=== PATIENT | male | born 1960 | race Caucasian/White ===

== ENCOUNTER 2019-08-28 17:36 | Emergency (ER) | payer SELFPAY ==
[2019-08-28 17:37] VITALS: BP 134/80; PULSE 101; RESP 18; TEMP 37.2; O2SAT 97; BMI 33.0
[2019-08-28 17:54] VITALS: BP 134/80; PULSE 101; RESP 18; TEMP 37.2; O2SAT 96; O2SAT 97
--- NOTE | 2019-08-28 18:12 | ED.VIS.URI ---
History of Present Illness Chief Complaint: Shortness of Breath Informant: Patient Onset: Days - 3 Context: Gradual Onset Timing: Continuous Associated Symptoms: Headache, Myalgias, Shortness of Breath, Productive Cough. Negative for: Nasal Congestion, Nausea, Vomiting, Diarrhea, Chest Pain, Hemoptysis Narrative: Patient presenting with flulike symptoms for 2 or 3 days. He gets dyspnea with exertion, but states even with this illness he has been walking 3-5 miles with little difficulty. He does not have any dyspnea at rest or chest symptoms otherwise. His doctor sent him to the ER for evaluation. He has had no definite exposures to persons infected with coronavirus that he knows of. 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 There is been respiratory illnesses but nobody that he knows of with anything specific. He does not have any history of chronic lung disease or heart disease. He has a history of multiple sclerosis that occasionally gives him weakness and/or numbness, he has none of that right now, and takes no medications for his multiple sclerosis or any other medications for other medical problems. - Past Medical History (1) Multiple sclerosis Status: Chronic Past Medical History - Allergies and Home Meds Allergies/Adverse Reactions: Allergies Penicillins [PCN] Allergy (Verified 08/28/19 17:37) Rash Primary Care Physician: Isiah Velasquez III, MD [Primary Care Provider] - Smoking Status: Never smoker Review of Systems General: Reports: Chills, Fever, Malaise, Subjective. Denies: Sweats Eyes: Denies: Visual changes - bilaterally, Diplopia ENT: Denies: Bilateral ear pain, Rhinorrhea, Sore throat Cardiovascular: Denies: Chest pain, Palpitations Respiratory: Reports: Cough, Sputum - occ phlegm, Dyspnea on exertion. Denies: Dyspnea Gastrointestinal: Denies: Abdominal pain, Nausea, Vomiting, Diarrhea, Melena, Hematochezia Genitourinary: Denies: Dysuria, Hematuria, Frequency Musculoskeletal: Reports: Myalgias. Denies: Neck pain, Back pain, Extremity Pain Skin: Denies: Rash, Wounds Neurological: Reports: Headache. Denies: Weakness, Numbness Physical Exam Vital Signs/Narrative: Vital Signs Temp Pulse Resp BP Pulse Ox 08/28/19 17:54 99 F 101 H 18 134/80 H 97 04/06/20 17:37 99 F 101 H 18 134/80 H 97 Inital Vital Signs reviewed: Yes General: Well nourished, Well developed, - - Appearing, no distress Head: Normocephalic, Atraumatic Eyes: Perrl, EOMI Ears: Normal external canal, TM's clear. Negative for: Pain with Movement of Right Tragus, Pain with Movement of Left Tragus Nose: Normal Inspection, No Rhinorrhea Mouth/Throat: Normal Inspection, No Posterior Erythema, Airway Patent Neck: Supple, Nontender, No Lymphadenopathy, No Meningismus Cardiovascular: Regular rate, Regular rhythm, No murmurs. Negative for: Tachycardia Respiratory: No distress, CTA bilaterally, Chest nontender Abdomen: Soft, Nontender, Nondistended, Normal bowel sounds Back: Nontender, Normal Inspection Extremities: Nontender, No edema. Negative for: Calf Tenderness Skin: Normal color, No rash, No Trauma Neurological: Alert, Oriented x3, Cranial nerves II-XII grossly intact, Normal Strength, Normal Sensation, Normal Gait Psychological: Normal affect, Normal Mood Diagnostic/Tx/Re-eval - Medical Decision Making At this time, the criteria that allow for coronavirus testing at the [facility] include priority 1 and 2, this patient does not meet either of those criteria after I discussed with the [facility] laboratory line to ask for permission for prior to testing. Therefore he was given appropriate discharge instructions for quarantine according to possibility of coronavirus infection after chest x-ray, influenza, and RSV were all negative. He understands and is comfortable with this plan. ED Disposition - Plan for ED Patient: Disposition: Home or Assisted Living Diagnosis: Viral URI with cough Instructions: ED Upper Resp Infec No Abx Tx Referrals: Isiah Velasquez III, MD [Primary Care Provider] - 10-14 Days if not better Additional Instructions: -See additional attached quarantine instructions for what to do with regards to the possibility of coronavirus infection, given that you do not currently meet the [facility] requirements for testing since they require us to conserve the limited testing ability for the sickest, hospitalized patients.
--- NOTE | 2019-08-28 18:27 | RAD_ITS ---
STUDY: X-RAY CHEST REASON FOR EXAM: Male, 59 years old. COUGH WITH SOB AND FEVER. TECHNIQUE: Single AP portable view of the chest. COMPARISON: None. FINDINGS: There are monitoring devices. The lungs are clear and expanded. There is no demonstrated pleural abnormality. Normal size heart. Normal mediastinum and amanda. Normal visualized pulmonary arteries. Normal visualized aortic arch and descending thoracic aorta. Arthritic change of the spine and acromioclavicular joints. There is no demonstrated abnormality of the visualized soft tissue structures of the upper abdomen. RAD/Chest 1 View (Portable) IMPRESSION: Degenerative changes, as described above. No demonstrated acute cardiopulmonary process. Electronically Signed: Samson Naranjo MD at 18:44 EDT , Service support ,
[2019-08-28 19:12] VITALS: BP 133/94; PULSE 75; RESP 18; TEMP 37.2; O2SAT 97
[2019-08-28 20:44] VITALS: BP 132/90; PULSE 73; RESP 16; O2SAT 96
== END 2019-08-28 20:45 | disposition home or self-care (01) ==
PROVIDERS: Emergency Provider Emergency Medicine; PCP Family Medicine
DX: J06.9 Acute upper respiratory infection, unspecified (principal)
CPT/HCPCS: 71045; 87804; 87807; 99282

== ENCOUNTER 2019-09-01 15:30 | Inpatient (IN) | payer SELFPAY ==
[2019-09-01 15:30] VITALS: BP 146/88; PULSE 108; RESP 16; TEMP 37; O2SAT 97; BMI 29.9
--- NOTE | 2019-09-01 15:50 | ED.RN ---
Addendum entered by Yokasta Flores 09/01/19 15:52: error, documented on wrong pt. Original Note: sister has cell phone. at this point jewelry remains on pt.
--- NOTE | 2019-09-01 15:51 | EKG12_ITS ---
Test Reason : PRE-OP Blood Pressure : / mmHG Vent. Rate : 088 BPM Atrial Rate : 088 BPM P-R Int : 146 ms QRS Dur : 086 ms QT Int : 346 ms P-R-T Axes : 041 048 012 degrees QTc Int : 418 ms Normal sinus rhythm Normal ECG Confirmed by RAVI RAMSAY, GARY ([id number]), manuscript editor BROCK TREJO ([id number]) on 09/04/2019 8:38:44 AM Referred By: Kelly Hudson Confirmed By:GARY RODRIGUES MD
--- NOTE | 2019-09-01 15:52 | ED.VIS.GEN ---
History of Present Illness Chief Complaint: Abd Pain Informant: Patient Onset: Yesterday Timing: Waxes and wanes Current Severity: Moderate Maximum Severity: Severe Narrative: Patient presents secondary to right upper quadrant pain and states his PCP told him he needed his gallbladder out. Patient developed right upper quadrant pain at 4 PM last evening. He has had URI symptoms with low-grade fever for the past 3 or 4 days. He has nausea. He was seen at the hospital in [place] last evening. CBC revealed a white count of 11.1 with 78% neutrophils. Chemistry studies are unremarkable including LFTs and lipase. CT scan showed a distended gallbladder. He was kept in the ER overnight and got an ultrasound of his gallbladder this morning that revealed numerous small layering stones and sludge in the gallbladder. Gallbladder wall measures 0.4 cm. There was no pericholecystic fluid. Patient states he left the hospital after his ultrasound this morning and did eat a small amount at 11 AM. He received a phone call from his PCPs office at 1 PM stating that he was supposed to go to the hospital at 4:00 to have his gallbladder out. He then received a return phone call 5 minutes later stating that they did not want him to wait that long he should go to the hospital as soon as possible. - Past Medical History (1) Multiple sclerosis Status: Chronic Past Medical History - Allergies and Home Meds Allergies/Adverse Reactions: Allergies Penicillins [PCN] Allergy (Verified 09/01/19 15:33) Rash Primary Care Physician: Isiah Velasquez III, MD [Primary Care Provider] - Prior records reviewed: Yes Lives: Alone Smoking Status: Never smoker Review of Systems General: Reports: Fever Eyes: Denies: Visual changes - bilaterally ENT: Denies: Bilateral ear pain, Sore throat Cardiovascular: Denies: Chest pain Respiratory: Reports: Cough Gastrointestinal: Reports: Abdominal pain, Nausea Genitourinary: Denies: Dysuria Musculoskeletal: Denies: Swelling, Extremity Pain Skin: Denies: Rash Neurological: Denies: Headache Psych: Denies: Depression Hematologic: Denies: Easy bruising Allergy: Denies: Uticaria Physical Exam Vital Signs/Narrative: Vital Signs Temp Pulse Resp BP Pulse Ox 09/01/19 15:30 98.6 F 108 H 16 146/88 H 97 Inital Vital Signs reviewed: Yes General: Well nourished, Well developed Head: Normocephalic ENT: Moist mucous membranes Neck: Supple Cardiovascular: Regular rate, Regular rhythm Respiratory: No distress, CTA bilaterally Abdomen: Soft, Tender - Diffuse tenderness to palpation, Guarding, Hypoactive bowel sounds Extremities: Nontender Skin: Normal color Neurological: Alert, Oriented x3, Normal Strength, Normal Sensation Psychological: Normal affect Diagnostic/Tx/Re-eval Impressions Gallbladder Ultrasound 09/01/19 16:01 IMPRESSION: 1. Cholelithiasis and acute cholecystitis. 2. Minimally dilated common duct for the patient''s age. Distal stone is not excluded. Electronically Signed: Екатерина Braun MD at 18:00 EDT Tel , Service support , 09/01/19 16:01 US Gallbladder [Gallbladder] [US] Stat 09/01/19 18:25 Chest 1 View (Portable) [RAD] Stat Laboratory Results 09/01/19 09/01/19 16:52 16:52 WBC 12.8 H RBC 4.78 Hgb 14.6 Hct 45.0 MCV 94.1 H MCH 30.5 MCHC 32.4 RDW Std Deviation 48.0 H RDW Coeff of Jason 13.9 Plt Count 171 MPV 12.3 H Immature Gran % (Auto) 0.300 Neut % (Auto) 77.6 H Lymph % (Auto) 8.0 L [place] % (Auto) 13.3 H Eos % (Auto) 0.3 Baso % (Auto) 0.5 Absolute Neuts (auto) 9.9 H Absolute Lymphs (auto) 1.02 Nucleated RBC % 0 Differential Comment COMMENT Diff Path Review May foll Reactive Lymphocytes RARE Platelet Estimate ADEQUATE RBC Morphology NORM C+C Sodium 139 Potassium 3.9 Chloride 108 H Carbon Dioxide 25.0 Anion Gap 6 BUN 15 Creatinine 0.98 Estim Creat Clear Calc 69.73 Est GFR (MDRD) Af Amer 100 Est GFR (MDRD) Non-Af 83 BUN/Creatinine Ratio 15.3 Glucose 122 H Calcium 8.4 L Total Bilirubin 1.50 H AST 293 H ALT 320 H Alkaline Phosphatase 102 Total Protein 7.2 Albumin 3.3 Globulin 3.9 Albumin/Globulin Ratio 0.8 L Lipase 137 - EKG Initial EKG Interpretation: Sinus Rhythm - Sinus at 88 with no acute ischemia. - Medical Decision Making Patient was given Dilaudid, Zofran, and a dose of Cipro as he does have penicillin allergy. I did review his work-up from [facility]. Ultrasound performed there this morning did not show any pericholecystic fluid. Gallbladder wall appeared unremarkable. I spoke with Dr. Hudson shortly after I saw the patient. She voiced concern about taking the patient to the operating room who may had Covid. She had told the patient that he should go to [facility]. The patient is now here and I do not feel that other hospitals will accept the transfer simply based on the fact that he may have Covid. Work-up was repeated tonight and patient now has elevated LFTs with evidence of cholecystitis on ultrasound. I spoke with incident command and him instructed that surgery has a plan in place to take potential Covid patients to the operating room if needed. I spoke again with Dr. Hudson and she presented to the emergency room to see the patient. ED Disposition - Plan for ED Patient: Disposition: Acute Care Hospital [facility] Diagnosis: Cholecystitis Referrals: Isiah Velasquez III, MD [Primary Care Provider] -
--- NOTE | 2019-09-01 16:01 | US_ITS ---
STUDY: ABDOMINAL ULTRASOUND - RIGHT UPPER QUADRANT REASON FOR VISIT: Male, 59 years old RUQ PAIN TECHNIQUE: Ultrasound evaluation of the right upper quadrant was performed with real-time and static matthews-scale imaging. TECHNICAL QUALITY: Adequate. COMPARISON: None. FINDINGS: Liver: The liver is poorly visualized. Liver measures 14.7 cm. There is normal echogenicity of the liver. The bile ducts are within normal limits. There is hepatic color flow. The direction of portal flow is hepatopetal. There is no demonstrated mass lesion. Gallbladder: Normal distended gallbladder. The gallbladder wall measures 3 mm. There is a positive sonographic Mora''s sign. There is no pericholecystic fluid. Gallbladder sludge and multiple small shadowing stones. Common Bile Duct (C.B.D.): The common bile duct measures 7 mm. Pancreas: Normal size of the head, body and tail of the pancreas. There is normal echogenicity of the pancreas. There is no demonstrated pancreatic mass or cyst. Right Kidney: Normal size of the right kidney. The right kidney measures 9.7 x 5.2 cm. Normal renal cortex. The right cortex measures 1.4 cm. There is no demonstrated renal mass or cyst. There is no right hydronephrosis. US/Gallbladder IMPRESSION: 1. Cholelithiasis and acute cholecystitis. 2. Minimally dilated common duct for the patient''s age. Distal stone is not excluded. Electronically Signed: Екатерина Braun MD at 18:00 EDT Tel , Service support ,
[2019-09-01] MEDS: 0.9% Normal Saline 1,000 ML 150 ML IV ×2 (16:34→21:54)
[2019-09-01] MEDS: Ciprofloxacin 400 MG/200 ML BAG 200 MG IV ×2 (16:47→21:57)
[2019-09-01] MEDS: HYDROmorphone 1 MG/ML Syringe 0.5 MG IV (16:47)
[2019-09-01] MEDS: Ondansetron 4 MG/2 ML Vial IV (16:47)
[2019-09-01 17:07] LABS: Absolute Lymphocyte Count 1.02 X10^3/uL (0.83-4.51); Absolute Neutrophil Count 9.9 X10^3/uL (2.0-7.7); Basophil# 0.07 X10^3/uL; Basophil% 0.5 % (0-1); Eosinophil# 0.04 X10^3/uL; Eosinophils% 0.3 % (0-5); Hemoglobin 14.6 g/dL (13.0-16.5); Lymphocyte # 1.02 X10^3/ul (4.0); Mean Corp Hgb Conc 32.4 g/dL (32-36); Mean Corpuscular Hgb 30.5 pg (27.0-32.0); Mean Corpuscular Volume 94.1 fL (80-94); Mean Platelet Vol. 12.3 fl (6.2-12.0); Monocyte# 1.69 X10^3/uL; Monocyte% 13.3 % (0-10); NRBC Flagged by Analyzer 0 % (0-5); Neutrophil # 9.89 X10^3/uL (2.7-7.7); Neutrophil % 77.6 % (47-70); POSITIVE DIFFERENTIAL YES; Platelet Count 171 K/mm3 (150-450); RBC Distribution Width CV 13.9 % (11.6-14.6); Red Blood Count 4.78 M/mm3 (4.6-6.2); White Blood Count 12.8 K/mm3 (4.4-11.0)
[2019-09-01 17:09] LABS: Differential Indicated SCAN CRITERIA MET
[2019-09-01 17:42] LABS: ALB/GLOB Ratio 0.8 RATIO (0.9-2.4); AST(SGOT) 293 U/L (15-37); Alanine Aminotransfer ALT/SGPT 320 U/L (16-61); Albumin, Serum 3.3 g/dL (3.2-5.0); Alkaline Phosphatase 102 U/L (45-117); Anion Gap 6 (5-15); BUN 15 mg/dL (7-18); BUN/Creat Ratio 15.3 RATIO (10-20); Calcium,Total 8.4 mg/dL (8.5-10.1); Chloride 108 mmol/L (98-107); Creatinine, Serum 0.98 mg/dL (0.70-1.30); EST Glomerular Filtration Rate 83 mL/min (>60); Est Glom Filt Rate - Afr Amer 100 mL/min (>60); Estimated Creatinine Clearance 69.73 ml/min; Globulin 3.9 g/dL (2.2-4.2); Glucose 122 mg/dL (74-106); Lipase 137 U/L (73-393); Potassium 3.9 mmol/L (3.5-5.1); Protein, Total 7.2 g/dL (6.4-8.2); Sodium Level 139 mmol/L (136-145)
[2019-09-01 17:46] VITALS: PULSE 85; RESP 12; O2SAT 96
[2019-09-01 17:52] LABS: Platelet Estimate ADEQUATE (ADEQ); Reactive Lymphocyte RARE; Red Cell Morphology NORM C+C NORMAL (NORM C&C)
[2019-09-01 18:28] VITALS: BP 145/78; PULSE 88; RESP 14; TEMP 36.2; O2SAT 97; BMI 29.9
--- NOTE | 2019-09-01 19:20 | RAD_ITS ---
STUDY: X-RAY CHEST REASON FOR EXAM: Male, 59 years old. PRE-OP GALLBLADDER SURGERY, COLD SYMPTOMS TECHNIQUE: Single AP portable view of the chest. COMPARISON: 08/28/2019. FINDINGS: The lungs are clear and expanded. There is no demonstrated pleural abnormality. Normal size heart. Normal mediastinum and amanda. Normal visualized pulmonary arteries. Normal visualized aortic arch and descending thoracic aorta. Normal visualized thoracic spine. Normal visualized ribs, clavicles, and shoulders. There is no demonstrated abnormality of the visualized soft tissue structures of the upper abdomen. RAD/Chest 1 View (Portable) IMPRESSION: Normal x-ray examination of the chest. Electronically Signed: Екатерина Braun MD at 19:41 EDT Tel , Service support ,
--- NOTE | 2019-09-01 19:22 | PCM.HP.BLA ---
History and Physical Date of Admission: 09/01/19 Chief Complaint: abdominal pain History of Present Illness: 59 y/o WM presents with abdominal pain since yesterday. Had presented to ED at [place] yesterday and was discharged. Presented to [facility] ED today Was found to have elevated 12.8k with left shift of differential. Patient states that has noted low grade temperatures and chills. Had also presented to [facility] ED on 08/28/2019 with temp of 99F and was tested negative for influenza/RSV/CXR was normal (patient thinks that he was tested for COVID, but he did not meet criteria and was not tested) US gallbladder today - cholelithiasis and acute cholecystitis, minimally dilated common bile duct 7mm, gallbladder wall 3mm, no pericholecystic fluid noted Pain is severe and patient states that pain is 9 out of 10 on scale of 1-10. PAST MEDICAL HISTORY: multiple sclerosis PAST SURGICAL HISTORY: Tonsillectomy ventral hernia left thumb surgery MEDICATIONS: denies taking chronic medications ALLERGIES: penicillin copolymer 1 SOCIAL HISTORY: TOB use denies, uses snuff Occupation - [employer] REVIEW OF SYSTEMS: General - states that he had low grade fevers, feels chills Cardiovascular denies chest pain, denies history of heart attack Pulmonary had coughing and low grade fever and showed up to ED [facility] on Wednesday and had COVID testing, denies shortness of breath, denies coughing up blood Gastrointestinal as per HPI, history of peptic ulcer disease Neurological denies numbness/weakness of extremities, denies seizures, denies history of stroke Genitourinary denies burning with urination, denies blood in urine Hematological denies spontaneous/prolonged bleeding Skin denies open non healing wounds Musculoskeletal denies joint problems Endocrine denies diabetes Psychological denies hallucinations PHYSICAL EXAMINATION: Vital signs Temp 97.1F HR 108 BP 146/88 RR 16 General WD/WN WM in no apparent distress, alert and oriented, not septic appearing HEENT Normocephalic. EOM intact with sclera clear and no icterus noted. Neck is supple with no jugular venous distention noted. Trachea is midline. Lungs no labored breathing noted, such as retractions. No cough heard. Heart regular rate. Abdomen soft but tender in the right upper quadrant with Mora's sign, protuberant, difficult to determine if any masses due to body habitus. Extremities no calf tenderness noted. No pitting edema noted. Genitourinary/Rectal deferred Skin normal skin integrity. Neurological non focal. Psychological normal affect, patient is calm and appropriate Labs - t bili 1.5, AST 293, ALT 320 IMPRESSION: acute cholecystitis elevated LFTS but normal alk phos DISCUSSION/PLAN I have discussed the above with the patient. Will admit for acute cholecystitis - treat with IV hydration, IV antibiotics, pain medications, etc. If no improvement, may require laparoscopic cholecystectomy, possible cholangiograms. I have explained the procedure to the patient. I have counseled the patient as to the risks of the procedure, including but not limited to: infection, bleeding, injury to any blood vessels/nerves, scar tissue, injury to any intraabdominal organs, injury to kidney/ureters, injury to bowel/bladder, injury to the common bile duct/biliary tree, bile leakage, intraabdominal abscess/bleeding, hernias at incisional sites, wound infections, possible open procedure, complications of anesthesia, postoperative pneumonia/cardiac problems/blood clots etc. the patient understands. The patient agrees with the above plan and agrees to the procedure. I have answered all questions to the patient?s satisfaction and the patient has no further questions.
[2019-09-01 19:57] VITALS: BP 141/77; PULSE 92; RESP 18; TEMP 36.4; O2SAT 97
[2019-09-01 21:49] VITALS: BP 136/65; PULSE 82; RESP 20; TEMP 37.4; O2SAT 97
[2019-09-01] MEDS: Morphine 4 MG/ML Syringe IV (21:51)
[2019-09-01 21:59] VITALS: BMI 29.9
[2019-09-02] VITALS (9 sets, daily range): BP systolic 107–157; BP diastolic 62–84; PULSE 71–87; RESP 16–20; TEMP 36.9–37.6; O2SAT 93–97; BMI 29.9
[2019-09-02] MEDS: Morphine 4 MG/ML Syringe IV ×3 (02:22→07:55)
[2019-09-02] MEDS: 0.9% Normal Saline 1,000 ML 150 ML IV (05:31)
[2019-09-02] MEDS: 0.9% Saline Lock 10 ML Syringe IV (07:56)
--- NOTE | 2019-09-02 10:14 | PN.SURG_ITS ---
Patient Problems: Active and Suspected Problems Cholecystitis (Acute) Subjective: patient's pain has not improved - Physical Exam Vitals/I&O's: Vital Signs Temp Pulse Resp BP Pulse Ox 99.6 F H 83 18 107/64 93 09/02/19 08:00 09/02/19 08:00 09/02/19 08:00 09/02/19 08:00 09/02/19 08:00 Oxygen Delivery Method Room Air Weight: 81.647 kg Body Mass Index (BMI) 29.9 Intake and Output for Last 24 Hours 08/31/19 09/01/19 09/02/19 23:59 23:59 23:59 Intake Total 1202.5 / 1202.5 977.5 / 977.5 Output Total 400 / 400 Balance 1202.5 / 1002.5 577.5 / 577.5 General: Alert, Oriented x3 Oral: Moist Mucosa Neck: Supple Lungs: Normal air movement Abdomen: Tender Laboratory Results 09/01/19 16:52: WBC 12.8 H, RBC 4.78, Hgb 14.6, Hct 45.0, MCV 94.1 H, MCH 30.5, MCHC 32.4, RDW Std Deviation 48.0 H, RDW Coeff of Jason 13.9, Plt Count 171, MPV 12.3 H, Immature Gran % (Auto) 0.300, Neut % (Auto) 77.6 H, Lymph % (Auto) 8.0 L , [place] % (Auto) 13.3 H, Eos % (Auto) 0.3, Baso % (Auto) 0.5, Absolute Neuts (auto) 9.9 H, Absolute Lymphs (auto) 1.02, Nucleated RBC % 0, Differential Comment COMMENT, Diff Path Review May foll, Reactive Lymphocytes RARE, Platelet Estimate ADEQUATE, RBC Morphology NORM C+C 09/01/19 16:52: Sodium 139, Potassium 3.9, Chloride 108 H, Carbon Dioxide 25.0, Anion Gap 6, BUN 15, Creatinine 0.98, Estim Creat Clear Calc 69.73, Est GFR (MDRD) Af Amer 100, Est GFR (MDRD) Non-Af 83, BUN/Creatinine Ratio 15.3, Glucose 122 H, Calcium 8.4 L, Total Bilirubin 1.50 H, AST 293 H, ALT 320 H, Alkaline Phosphatase 102, Total Protein 7.2, Albumin 3.3, Globulin 3.9, Albumin/Globulin Ratio 0.8 L, Lipase 137 Current Medications Sodium Chloride () 1,000 mls @ 150 mls/hr IV .[id number] [facility] Last Admin: 09/02/19 05:31 Dose: 150 mls/hr Documented by: Ciprofloxacin (Cipro) 400 mg in 200 mls @ 200 mls/hr IV Q12 [facility] Last Infusion: 09/01/19 23:00 Dose: Infused Documented by: Sodium Chloride () 250 mls @ 15 mls/hr IV .[id number] PRN PRN Reason: Saline Flush Sodium Chloride () 250 mls @ 15 mls/hr IV .[id number] PRN PRN Reason: Additional IVPB Infusion Morphine Sulfate () 4 mg IV Q1H PRN PRN PRN Reason: Pain Score 4-10 Last Admin: 09/02/19 07:55 Dose: 4 mg Documented by: Nutritional Formula (Lactose Free) (Ensure Enlive) 120 ml PO 4X/DAY [facility] Last Admin: 09/02/19 07:48 Dose: Not Given Documented by: Ondansetron HCl (Zofran) 4 mg IV Q8 PRN PRN Reason: NAUSEA/VOMITING Sodium Chloride () 10 - 40 ml IV UD PRN PRN Reason: SALINE FLUSH Last Admin: 09/02/19 07:56 Dose: 10 ml Documented by: Medical Necessity - Tobacco Use Smoking Status: Never smoker Assessment/Plan All Active Problems Cholecystitis (Acute) Impression: acute cholecystitis Plan: proceed to laparoscopic cholecystectomy today I have counseled patient as to risks of procedure: including but not limited to: infection, bleeding, injury to any blood vessels/nerves, scar tissue, injury to any intrabdominal organs, injury to kidney/ureters, injury to bowel/bladder, injury to the common bile duct/biliary tree, bile leakage, intraabdominal abscess/bleeding, hernias at incisional sites, wound infections, possible open procedure, complications of anesthesia, postoperative pneumonia/cardiac problems/blood clots etc. the patient understands. I have also explained that any surgery at this point in time would stress the body and therefore increase his susceptibility to infections such as COVID, he understands. He wishes to proceed with surgery. I have answered all questions to the patient?s satisfaction and the patient has no further questions.
[2019-09-02] MEDS: HYDROmorphone 0.5 MG/0.5 ML SYRINGE IV (10:48)
[2019-09-02] MEDS: Ciprofloxacin 400 MG/200 ML BAG 200 MG IV ×2 (11:06→21:58)
--- NOTE | 2019-09-02 11:10 | NURSING ---
Off unit to OR at this time.
[2019-09-02] MEDS: Lactated Ringers 1,000 ML 100 ML IV ×2 (12:30→21:59)
--- NOTE | 2019-09-02 13:11 | OP.PCM_ITS ---
Report of Operation Date of Procedure: 09/02/19 Pre-Operative Diagnosis: cholelithiasis, acute cholecystitis Post-Operative Diagnosis: cholelithiasis, acute cholecystitis with obstruction with gangrene Surgery/Procedure Performed:: laparoscopic cholecystectomy, attempted cholangiograms Description of Surgical Findings:: gangrenous gallbladder wall, cholelithiasis with obstruction, cholecystitis, could not do cholangiograms due to small lumenal size of cystic duct point of care technician: Luisa Bertrand Type of Anesthesia:: General Anesthesiologist: Delvin Madera Specimen's removed: gallbladder and contents Drains: 10 Fr round passive drain in right upper quadrant Estimated Blood Loss (mL): 30 Fluids Replaced: 1300 ml RL Description of Procedure: After informed consent was given, the patient was brought to the Operating Room. Appropriate time out protocol was followed. He was then placed in the supine position. The patient was then placed under general endotracheal anesthesia. The abdomen was then prepped with a sterile surgical skin preparation and sterile surgical drapes were placed. An area superior to the umbilical dimple was grasped with penetrating clamps and the skin and subcutaneous tissues were infiltrated with 0.25% marcaine with epinephrine. A skin incision was then made with a 15 blade scalpel. The anterior abdominal wall was elevated and a Veress needle was carefully inserted into the intraabdominal cavity. It was checked to be in the proper position with a normal saline drop test. A CO2 pneumoperitoneum was then created. Once this was achieved, then the Veress needle was removed and an 11mm trocar was placed in its stead. A 10mm laparoscope was then inserted into the trocar and careful attention was directed to the intraabdominal contents. There was no evidence of injury to any intraabdominal organs from insertion of the Veress needle or the trocar. A 5 mm trocar was placed via direct visualization in the subxiphoid area after theh skin and subcutaneous tissues were infiltrated with local anesthetic. There were omental adhesions to the anterior abdominal wall from patient's previous ventral hernia surgery for which he states that mesh was placed. These adhesions were taken down using electrocautery. These adhesions were primarily attached to the abdominal wall in the right upper quadrant, obscuring the liver and gallbladder. Once these adhesions were taken down then under direct vis ualization, then two lateral 5mm right subcostal trocars were placed. The skin and subcutaneous tissues at these sites were infiltrated with 0.25% marcaine with epinephrine prior to placement of these trocars. The omentum was densely adhesed to the free surface of the gallbladder. There was dense inflammation surrounding the gallbladder. The gallbladder wall itself was thickened and edematous and had areas of gangrene. The gallbladder was grossly distended. A needle trocar was placed into the gallbladder to aspirate contents to allow it to be grasped and retracted with graspers. Thus, the gallbladder appeared to have obstruction. Graspers were placed in the lateral trocars to grasp the distal aspect of the gallbladder and direct it cephalad and to grasp the gallbladder at Millan?s pouch and direct it laterally. Dissection then began on the proximal gallbladder continuing down to the area of the triangle of Calot to bluntly dissect out the cystic duct. This took some time due to the denseness of the surrounding inflammatory tissues. The neck of the gallbladder was identified and bluntly dissected such that the critical triangle was entirely visualized. Blunt dissection continued to dissect out a segment of the cystic duct. A clip was then placed on the neck of the gallbladder. A small ductotomy was then made. A Ranfac catheter was brought in through a separate sk in incision and placed into the cystic duct, however, contrast could not be injected. The cystic duct was then milked and there were small stones present that were removed. Another ductotomy was then made more proximally, but the lumen was too small, 1-2 mm to cannulate. Therefore the cholangiogram was aborted. The Ranfac catheter was then removed. Two clips were placed proximal to the ductotomy and the cystic duct was then transected. The cystic artery was visualized and bluntly isolated and then two clips were placed proximally and one clip distally and then it was transected between the proximal and distal clips. The gallbladder was then from the liver bed using electrocautery. Separation took some time. There was inflammatory oozing present that was controlled with electrocautery. The gallbladder wall was inflamed and densely adherent to the liver bed. The gallbladder once completely was then placed in an Endobag. It was then brought out of the periu mbilical port. It was then forwarded to pathology for analysis. The liver bed was carefully examined. There was no evidence of bile leakage or active bleeding. Because of inflammatory oozing, surgicel was placed around the area of the cystic duct stump and liver bed. The cystic duct stump and cystic artery stump had their clips intact and there was no evidence of bile leakage or bleeding. The remainder of the abdomen was grossly normal. Irrigation was done of the tissues and all irrigant was aspirated out. A 10 Fr round passive drain was brought in via one of the lateral trocars and placed in the area inferior to the liver. The CO2 was released and all trocars removed intact. The periumbilical fascia was approximated with a [id number] 0 vicryl suture. The drain was sutured to the skin using nylon suture. All skin incision were closed with 4-0 monocryl in a subdermal fashion. Cavilol and Steristrips were used to reinforce the skin closure. Sterile dressings were applied to all wounds. The patient was extubated and brought to the Recovery Room in stable condition. - Complications none noted - Admit VTE Documentation VTE Present on Admission: Yes VTE Mechan Device Prophylaxis: SCD's
[2019-09-02] MEDS: Bupiv/Epi 0.25% 30 ML Vial (13:12)
--- NOTE | 2019-09-02 14:12 | CM.UR ---
RN CM Assessment Introduced role of RN CM to patient. Patient is alert and able to participate in RN CM Assessment. Patient showed many non-verbal signs of pain. Offered to come back after surgery however patient declined and stated, let's do it now. Care providers, pharmacy, and demographics verified. Presentation: abd pain x 1 day Admit Dx: Acute farida Re-Admit: no Barriers/Issues: None PCP: Zonia Velasquez Preferred Pharmacy: [facility] Insurance: None Rx Benefit: none LNOK: Daughter, Alyce LW/HPOA: None, declined additional information. Instructed he can always call social work dept after discharge if interested Living Arrangements: Apartment, single story. Denies any access issues ADL?s: Independent. Transportation: Drives self DME: None. Denies needs. DME co: none HHC: None SNF: None Goal: Return home. DC PLAN: Home, no needs anticipated. Jj Hodgson RN, CCM.
[2019-09-02] MEDS: HYDROcodone Bitartrate/Apap 5/325 Tablet PO (18:38)
[2019-09-03] MEDS: HYDROcodone Bitartrate/Apap 5/325 Tablet PO ×2 (00:08→12:33)
[2019-09-03 02:00] VITALS: BP 141/70; PULSE 76; RESP 16; TEMP 36.8; O2SAT 94
[2019-09-03 07:13] LABS: AST(SGOT) 138 U/L (15-37); Alanine Aminotransfer ALT/SGPT 239 U/L (16-61); Albumin, Serum 2.5 g/dL (3.2-5.0); Alkaline Phosphatase 113 U/L (45-117); Bilirubin, Direct 0.55 mg/dL (0.00-0.30); Globulin 4.1 g/dL (2.2-4.2); Protein, Total 6.6 g/dL (6.4-8.2)
[2019-09-03] MEDS: Lactated Ringers 1,000 ML 100 ML IV (07:30)
[2019-09-03 09:00] VITALS: BP 141/78; PULSE 78; RESP 16; TEMP 36.9; O2SAT 94
[2019-09-03] MEDS: Ciprofloxacin 400 MG/200 ML BAG 200 MG IV (09:01)
[2019-09-03] MEDS: Acetaminophen 500 MG Tablet PO (09:12)
--- NOTE | 2019-09-03 10:58 | PN.SURG_ITS ---
Patient Problems: Active and Suspected Problems Cholecystitis (Acute) Subjective: Patient feeling much improved, requiring minimal pain medications - Physical Exam Vitals/I&O's: Vital Signs Temp Pulse Resp BP Pulse Ox 98.4 F 78 16 141/78 H 94 09/03/19 09:00 09/03/19 09:00 09/03/19 09:00 09/03/19 09:00 09/03/19 09:00 Oxygen Flow Rate (L/min) 2 Oxygen Delivery Method Room Air Weight: 81.6 kg Body Mass Index (BMI) 29.9 Intake and Output for Last 24 Hours 09/01/19 09/02/19 09/03/19 23:59 23:59 23:59 Intake Total 1202.5 / 1202.5 3530.83 / 3530.83 1205.00 / 1205.00 Output Total 1660 / 1660 1585 / 1585 Balance 1202.5 / 1002.5 1870.83 / 1870.83 -380.00 / -380.00 General: Alert, Oriented x3 Oral: Moist Mucosa Neck: Supple Lungs: Normal air movement Abdomen: Soft, - - dressing intact, RICHIE output becoming more serous Laboratory Results 09/03/19 06:27: Total Bilirubin 1.30 H, Direct Bilirubin 0.55 H, AST 138 H, ALT 239 H, Alkaline Phosphatase 113, Total Protein 6.6, Albumin 2.5 L, Globulin 4.1 Current Medications Acetaminophen (Tylenol) 500 mg PO Q4H PRN PRN PRN Reason: Pain Score 1-10 Last Admin: 09/03/19 09:12 Dose: 500 mg Documented by: Hydrocodone Bitart/Acetaminophen ([place] 5mg-325mg) 1 tablet PO Q4H PRN PRN PRN Reason: Pain Score 1-5/10 Last Admin: 09/03/19 00:08 Dose: 1 tablet Documented by: Ciprofloxacin (Cipro) 400 mg in 200 mls @ 200 mls/hr IV Q12 MARIO Last Infusion: 09/03/19 10:01 Dose: Infused Documented by: Sodium Chloride () 250 mls @ 15 mls/hr IV .[id number] PRN PRN Reason: Saline Flush Sodium Chloride () 250 mls @ 15 mls/hr IV .[id number] PRN PRN Reason: Additional IVPB Infusion Lactated Ringer's () 1,000 mls @ 100 mls/hr IV .Q10H MARIO Last Infusion: 09/03/19 10:01 Dose: 100 mls/hr Documented by: Morphine Sulfate () 4 mg IV Q1H PRN PRN PRN Reason: Pain Score 4-1010 Last Admin: 09/02/19 07:55 Dose: 4 mg Documented by: Ondansetron HCl (Zofran) 4 mg IV Q8 PRN PRN Reason: NAUSEA/VOMITING Sodium Chloride () 10 - 40 ml IV UD PRN PRN Reason: SALINE FLUSH Last Admin: 09/02/19 07:56 Dose: 10 ml Documented by: Medical Necessity - Tobacco Use Smoking Status: Never smoker Assessment/Plan All Active Problems Cholecystitis (Acute) Impression: POD#1 s/p laparoscopic cholecystectomy for acute cholecystitis Plan: Discharge to home Follow up next week in the office for removal of RICHIE drain I have answered all questions to the patient?s satisfaction and the patient has no further questions.
--- NOTE | 2019-09-03 11:00 | PCM.DC.GB ---
Discharge Diet: No Restrictions - avoid carbonated beverages for a couple of days Discharge Activity: Return to Normal Activity, May not drive while taking narcotic pain medications. Additional Activity Instructions:: Leave dressings in place. Care for RICHIE drain as per nursuing intructions. Sponge bathe only as long as drain in Call your doctor if your incision/area has: Continuous Slow Oozing, Foul Smelling Discharge Call your doctor if you observe: Fever of 101 or Higher Additional Dressing/Incision Instructions:: Leave dressings in place Additional Instructions: Recommended pain medication regimen: take 650 mg acetaminophen (Tylenol), then in 3-4 hours take 600 mg ibuprofen (Motrin), then in 3-4 hours take 650 mg acetaminophen, then in 3-4 hours take 600 mg ibuprofen and continue this for the nest 2-3 days if has pain greater than controlled by above, can take narcotic pain medication (and also at night to help you sleep) Allergies/Adverse Reactions: Allergies Penicillins [PCN] Allergy (Verified 09/01/19 15:33) Rash Medications to take at Discharge Ciprofloxacin [Cipro] 500 mg PO BID 7 Days #14 tab 09/03/19 Hydrocodone/Acetaminophen [[place] 5-325 Tablet] 1 each PO Q8 PRN 4 Days #12 tablet 09/03/19 The following prescriptions were given: Ciprofloxacin [Cipro] 500 mg PO BID 7 Days #14 tab Transmission Status: Pending to [facility] Hydrocodone/Acetaminophen [[place] 5-325 Tablet] 1 each PO Q8 PRN 4 Days #12 tablet PRN Reason: Pain Score 4-10/10 Transmission Status: Sent to [facility] Primary Care Physician: Isiah Velasquez III, MD [Primary Care Provider] - Test Results: Test results from this visit will be discussed in further detail at your follow-up appointment, if applicable. Please Follow Up With: Kelly Hudson MD - Office #: When: office will contact patient with appointment
--- NOTE | 2019-09-04 | GALL_PTH ---
PATIENT: MELYSSA GALE LOC: PCU U#:[id number] AGE/SX: 59/M ROOM: [facility] RE09/01/[address]: Dr. Kelly Hudson MD : 1960 BED: 1 DIS: 09/03/2019 SPEC #: [id number] RECD: 09/04/19 12:02 STATUS: KORTNEY REQ #: [id number] JOSE: 09/04/19 00:[address]: Kelly Hudson DEPT: SURGICAL PATHOLOGY RECD BY: Kendell Posadas ENTERED: 09/05/19 12:21 SP TYPE: OMKAR VALVERDE DR: Dr. Isiah Velasquez III, MD Tissues: Gallbladder, NOS Procedures: Surgery Specimen Level III HEADER OPERATION: Laparoscopic cholecystectomy with IOC PRE-OP DIAGNOSIS: Acute cholecystitis TISSUE SUBMITTED: Gallbladder MICROSCOPIC DIAGNOSIS Gallbladder, cholecystectomy: Acute and chronic cholecystitis and cholelithiasis. AM:jaun 09/06/19 MICROSCOPIC DESCRIPTION Slides are reviewed. GROSS DESCRIPTION Received is one container labeled with the patient's name and designated gallbladder. The specimen consists of a gallbladder measuring 7.5 cm in length and up to 4 cm in diameter. The wall of the gallbladder is focally disrupted. The external surface is pink-claros, smooth and glistening for the most part. Focally it is granular, hemorrhagic and contains cautery artifact. The gallbladder contains a small amount of hemorrhagic bile and multiple brownish-black stones measuring in aggregate 4 x 4 x 1 cm and 0.1 to 0.3 cm in greatest dimension. The mucosa is bile-stained and without any mass lesions. The gallbladder wall measures up to 0.2 cm in thickness. Training Intern sections from the gallbladder and the cystic duct are submitted in one cassette. / SJ:jaun 09/05/19 TC:2 CPT: 35184
[2019-09-04 11:05] LABS: Pathologist Review Reviewed
--- NOTE | 2019-09-05 11:00 | DS.PCM_ITS ---
Discharge Summary Date of Admission: 09/01/19 Date of Discharge: 09/03/19 Summary: Michael Holloway is a 59 y/o WM who presented with severe right upper quadrant abdominal pain to [facility] ED. He was observed overnight on the medsurg gray with IV hydration, IV antibiotics, and IV pain medications. He was found to have elevated WBC and elevated LFTs (though alk phos was normal) He did not clinically improve and therefore underwent laparoscopic cholecystectomy on 09/02/2019. He was found to have severe acute cholecystitis. IOC could not be done due to the small lumen size of the cystic duct. Intraabdominal drain was placed. He tolerated procedure well and had minimal pain postoperatively. He was discharged to home on POD#1, tolerated diet, LFTs decreased. To be followed as outpatient for removal of drain. - Physical Exam Vitals/I&O's: Vital Signs Temp Pulse Resp BP Pulse Ox 98.4 F 78 16 141/78 H 94 09/03/19 09:00 09/03/19 09:00 09/03/19 09:00 09/03/19 09:00 09/03/19 09:00 Oxygen Flow Rate (L/min) 2 Oxygen Delivery Method Room Air Weight: 81.6 kg Body Mass Index (BMI) 29.9 Intake and Output for Last 24 Hours 09/03/19 09/04/19 09/05/19 23:59 23:59 23:59 Intake Total 1503.33 / 1503.33 Output Total 1595 / 1595 Balance -91.67 / -91.67 Laboratory Results 09/01/19 16:52: Diff Path Review Reviewed
== END 2019-09-03 13:25 | disposition home or self-care (01) | DRG 419 ==
LOC: ED 19:21 → MS2 19:30 → PCU 23:39
PROVIDERS: Admitting Provider Surgery; Emergency Provider Emergency Medicine; PCP Family Medicine; Referring Provider Surgery; Visit Provider Surgery
PROC: 0FT44ZZ Resection of Gallbladder, Percutaneous Endoscopic Approach (ICD-10-PCS; CPT 47610; principal; 2019-09-02 11:15)
DX: K80.12 Calculus of gallbladder with acute and chronic cholecystitis without obstruction (principal); G35 Multiple sclerosis; F17.290 Nicotine dependence, other tobacco product, uncomplicated; K82.A1 Gangrene of gallbladder in cholecystitis
CPT/HCPCS: 36415; 71045; 76705; 80053; 80076; 83690; 85025; 88304; 93005; 96361; 96365; 96368; 96375; 97802; 99251; 99284; 99406; J7030; J7120; A4216; G0463; J0744; J2405

== ENCOUNTER 2022-07-22 07:09 | Emergency (ER) | payer OTHER, SELFPAY ==
[2022-07-22 07:10] VITALS: BP 175/90; PULSE 76; RESP 18; TEMP 36.3; O2SAT 98; BMI 36.6
--- NOTE | 2022-07-22 07:18 | EKG12_ITS ---
Test Reason : CP Blood Pressure : / mmHG Vent. Rate : 068 BPM Atrial Rate : 068 BPM P-R Int : 152 ms QRS Dur : 090 ms QT Int : 390 ms P-R-T Axes : 030 034 011 degrees QTc Int : 414 ms Normal sinus rhythm Normal ECG Confirmed by ABBIE RAMSAY, ABHAY ([id number]), film and video editor KARL CUELLAR ([id number]) on 07/27/2022 9:31:19 AM Referred By: CHARLES Confirmed By:DANIAL LEIVA MD
[2022-07-22 07:22] VITALS: O2SAT 97
--- NOTE | 2022-07-22 07:35 | RAD_ITS ---
EXAM: XR LEFT RIBS AND AP CHEST, 3 OR MORE VIEWS CLINICAL INDICATION: pain TECHNIQUE: Frontal and oblique views of the left ribs and frontal view of the chest. This report was created using [employer] report generation technology. COMPARISON: Chest radiograph 09/01/2019. FINDINGS: LUNGS AND PLEURAL SPACES: Normal. No consolidation or edema. No pneumothorax. No effusion. HEART: Normal. Normal heart size. MEDIASTINUM: No mediastinal or hilar mass. BONES/JOINTS: No acute abnormality. RAD/Ribs Uni Min 3V w/PA Chest IMPRESSION: Normal chest and left ribs series. Electronically Signed: Cosme Loaiza MD at 8:09 EST ,
[2022-07-22 07:37] LABS: Absolute Lymphocyte Count 2.05 X10^3/uL (0.83-4.51); Basophil# 0.07 X10^3/uL; Eosinophil# 0.19 X10^3/uL; Eosinophils% 2.6 % (0-5); Hematocrit 46.7 % (40-54); Hemoglobin 15.1 g/dL (13.0-16.5); Lymphocyte # 2.05 X10^3/ul (0.83-4.51); Lymphocyte % 28.2 % (19-41); Mean Corp Hgb Conc 32.3 g/dL (32-36); Mean Corpuscular Volume 95.9 fL (80-94); Mean Platelet Vol. 12.1 fl (6.2-12.0); Monocyte# 0.89 X10^3/uL; Monocyte% 12.2 % (0-10); NRBC Flagged by Analyzer 0 % (0-5); Neutrophil # 4.03 X10^3/uL (2.7-7.7); Neutrophil % 55.4 % (47-70); Platelet Count 187 K/mm3 (150-450); RBC Distribution Width CV 13.4 % (11.6-14.6); RBC Distribution Width SD 47.8 fl (35.1-43.9); Red Blood Count 4.87 M/mm3 (4.6-6.2); White Blood Count 7.3 K/mm3 (4.4-11.0)
[2022-07-22] MEDS: Acetaminophen 325 MG Tablet 650 MG PO (07:50)
[2022-07-22 07:51] LABS: AST(SGOT) 24 U/L (15-37); Alanine Aminotransfer ALT/SGPT 43 U/L (16-61); Albumin, Serum 3.3 g/dL (3.2-5.0); Alkaline Phosphatase 82 U/L (45-117); Bilirubin, Direct 0.11 mg/dL (0.00-0.30); Globulin 4.1 g/dL (2.2-4.2); Protein, Total 7.4 g/dL (6.4-8.2)
[2022-07-22 07:52] VITALS: BP 120/79; PULSE 70; RESP 18; O2SAT 98
[2022-07-22 07:58] LABS: Anion Gap 5 (5-15); BUN 16 mg/dL (7-18); BUN/Creat Ratio 18.8 RATIO (10-20); Calcium,Total 8.9 mg/dL (8.5-10.1); Chloride 107 mmol/L (98-107); Creatinine, Serum 0.85 mg/dL (0.70-1.30); EST Glomerular Filtration Rate 97 mL/min (>60); Est Glom Filt Rate - Afr Amer 117 mL/min (>60); Estimated Creatinine Clearance 77.38 ml/min; Glucose 105 mg/dL (74-106); Lipase 177 U/L (73-393); Potassium 3.6 mmol/L (3.5-5.1); Sodium Level 139 mmol/L (136-145); Troponin-I HS (w/2H Reflex) 6 pg/mL (3.0-78.0)
--- NOTE | 2022-07-22 08:09 | CM.ED ---
Addendum entered by Francisca Hernandez 07/22/22 08:33: ERIC Note Referral Source: Case Find Referral Reason: No Primary Care Physician (PCP) SW reviewed chart and noted that patient has no PCP. SW provided patient with list of [facility] Physician List for reference. No other issues or concerns voiced at this time. SW remains available for any additional needs. Plan: Provided patient with PCP information Francisca BLOUNT Original Note: SW Note Referral Source: MD Referral Reason: Advanced Directives SW met with patient and his sister to discuss Advanced Directives. Patient voiced that if he is in a permanently vegetative state he does not wish to continue to be on life support. SW asked patient who he wants to be his HCPOA and he said sister and then said that he wants his daughter to be the second HCPOA. However, patient does not have the address of his daughter. Patient said that he can't text his daughter for her address as she is working and he can't text her son in law as he is sleeping. SW asked if patient's daughter rents or owns a house (as this production underwriter could attempt to secure the address on medical coding auditor web site) however patient's son and daughter in law are renting. SW educated patient that without the address of the daughter the Advanced Directives can not be completed. SW educated patient and the patient's sister that patient can complete the paperwork when he obtains his daughter's address and either have 2 non family members witness the signature on the form or a notary witness his signature. Patient verbalized understanding. No other issues or concerns voiced at this time by patient or patient's sister. SW remains available if needs arise. Plan: Resources provided Francisca Blount
[2022-07-22 08:17] LABS: D-Dimer Quantitative (DVT/PE) 0.46 FEU/ug/m (0.27-0.49)
[2022-07-22 09:32] LABS: Reflex Troponin-HS? (from REC) Y
[2022-07-22 10:04] LABS: Troponin-I HS 6 pg/mL (3.0-78.0)
--- NOTE | 2022-07-22 10:13 | CT_ITS ---
EXAM: CT HEAD WITHOUT INTRAVENOUS CONTRAST CLINICAL INDICATION: left sided pain, hx of MS TECHNIQUE: Multiple axial images were obtained of the head without intravenous contrast. This CT exam was performed using one or more of the following dose reduction techniques: automated exposure control, adjustment of the mA and/or kV according to patient size, and/or use of iterative reconstruction technique. This report was created using [employer] report generation technology. COMPARISON: None. FINDINGS: BRAIN AND EXTRA-AXIAL SPACES: Areas of diminished white matter density noted within both cerebral hemispheres which may represent chronic microvascular changes or inflammatory demyelination. Prominence of the cortical sulci and ventricles related to volume loss change. No intra- or extra-axial hemorrhage. No evidence of acute infarct. No intracranial mass or mass effect. There is preservation of the matthews/white matter interface. Posterior fossa structures are unremarkable. Basal cisterns are patent. BONES/JOINTS: No suspicious lytic or blastic abnormality. SINUSES: Small mucus retention cyst within the left maxillary sinus. MASTOID AIR CELLS: Normal. Clear. ORBITS: Visualized globes, extraocular muscles, optic nerves and retrobulbar fat appear unremarkable. DENTAL: Prominent apical resumption along the left medial maxillary incisor. CT/Brain/Head without Contrast IMPRESSION: 1. No acute intracranial abnormality. 2. Mild white matter changes which may represent chronic microvascular disease or inflammatory demyelination. Electronically Signed: Cosme Loaiza MD at 10:57 EST ,
[2022-07-22] MEDS: Ketorolac 15 MG/ML Vial IV (10:42)
[2022-07-22 10:43] LABS: CPK Total, Creatine Kinase 51 U/L (39-308)
--- NOTE | 2022-07-22 11:50 | NURSING ---
[id number] CALLED CC LEFT MESSAGE
--- NOTE | 2022-07-22 11:50 | NURSING ---
CALLED [facility] AND PUT ON HOLD
--- NOTE | 2022-07-22 11:57 | NURSING ---
CALLED [facility] TRANSFER LINE, TALKED TO DANIELLE MCNALLY
[2022-07-22 12:26] VITALS: BP 167/100; PULSE 78; RESP 18; O2SAT 97
--- NOTE | 2022-07-22 13:01 | ED.VIS.CHEST ---
HPI History of Present Illness Chief Complaint: Chest Pain Informant: patient and family Narrative Narrative: Patient is a 62-year-old male with history of MS (not on any treatments) and cholecystectomy presenting with left-sided chest pain. Patient states he had chest pain around 5 AM that woke him up from sleep. He states it is an ache that sometimes feels like someone is grabbing. It is worse when he coughs or takes a deep breath. His cough is nonproductive adductive and he denies any shortness of breath. Denies any swelling of his legs. States he has never had anything like this before. Notes he does not see a doctor regularly. He states he has followed with the [facility] for MS through [facility] in the past and at one point was on injections for his MS but does not follow with anyone at this time. PFSH PFS Home Medications NK 07/22/22 [History Last Taken Unknown] Allergy/AdvReac Type Severity Reaction Status Date / Time Penicillins [PCN] Allergy Rash Verified 07/22/22 07:10 Surgical History Hx of cholecystectomy Social History Smoking Status: Never smoker ROS ROS ED Constitutional Constitutional ED: Denies chills or fever(s) Eyes Eyes: Denies blurry vision or change in vision Cardiovascular Cardiovascular: Reports as per HPI and chest pain Respiratory/Chest Respiratory/Chest: Denies dyspnea or dyspnea on exertion Musculoskeletal Musculoskeletal: Denies arthralgias, back pain or myalgias Integumentary Denies rash Neurologic Neurologic: Denies headache(s), paresthesias or weakness Psychiatric Psychiatric: Denies anxiety EXAM Physical Exam Const Vital Signs: 07/22/22 07:10 07/22/22 07:13 07/22/22 07:22 Temperature 97.4 F L Temperature Source Temporal Pulse Rate 76 Respiratory Rate 18 Respiratory Effort Normal Respiratory Pattern Normal Blood Pressure 175/90 H Blood Pressure Mean 118 Pulse Ox 98 97 Oxygen Delivery Method Room Air Room Air 07/22/22 07:52 07/22/22 12:26 07/22/22 13:17 Temperature Temperature Source Pulse Rate 70 78 72 Respiratory Rate 18 18 16 Respiratory Effort Respiratory Pattern Blood Pressure 120/79 167/100 H 154/90 H Blood Pressure Mean 92 122 Pulse Ox 98 97 95 Oxygen Delivery Method Room Air Room Air Positive well nourished and well developed General Appearance ED: well developed and NAD HEENT Reports moist mucous membranes normocephalic and atraumatic Eyes PERRL Neck supple and no JVD Chest Wall inspection of chest normal Chest Narrative: Chest wall tenderness to palpation of the left anterior chest wall below the nipple line. Highly reproducible with palpation. No chest wall crepitus. No overlying rash appreciated. Mild tenderness palpation of the right thoracic back at approximately T6 Resp normal respiratory effort and clear to auscultation bilaterally Cardio regular rate, regular rhythm and no murmurs GI normal to inspection, nondistended, normoactive bowel sounds and soft to palpation Neuro oriented x3, CN's II-XII intact bilaterally and no sensory deficits noted Sensorium / Orientation: awake and alert Motor Exam: strength 5/5 throughout; Negative for general weakness Psych mental status grossly normal Skin no rashes or lesions noted Heart Score History: Slightly/Non-Suspicious ECG: Normal Age: >/= 65 years Risk Factors: 1 or 2 Risk Factors Troponin: </= Normal Limit Score: 3 MDM MDM MDM Narrative Medical decision making narrative: Patient is evaluated for chest pain. Chest pain is highly reproducible and appears to be more muscle skeletal in nature. Given his age I did obtain a cardiac work-up including EKG, chest x-ray and delta high-sensitivity troponin. Rib series was obtained and the patient denies any trauma. X-ray interpreted by myself as well as radiology does not show any acute process. Patient is initially given Tylenol as he declines anything else for pain. He states he has a children that have overdosed before. On repeat evaluation he is having improved chest pain but is now complaining of cramping sharp pain of his left anterior thigh. He mentions that this pain feels like when he has an MS flare. Patient is not currently established with neurology and is interested in transfer for neurologic evaluation. I did add a CT of the brain on ambulates on any focal neurologic deficits and his only neurologic symptom is pain. This does show chronic inflammatory changes which is consistent with his history of MS. I spoke to the [facility] transfer line, neurology on-call, Dr. Smith. We reviewed the patient's results and neurologic exam. He feels that the patient would benefit from very close outpatient neurologic follow-up but does not think the patient needs admission x-ray she does not have any debilitating symptoms and is able to ambulate. Patient is able to ambulate pretty easily in the emergency room. He has further improvement of his thigh pain after dose of Toradol. Patient will be given the [facility] scheduling phone number and should be contacted as well later today. Patient and his sister are agreeable to plan of care. In the ER patient did request information about medical power of assistant city attorney for his sister. This is provided by case management. Patient agreeable to plan of care. From a cardiac standpoint I think he stable for outpatient follow-up. Low suspicion for ACS as a cause of his pain today. Patient has no rash overlying his pain and is not dermatomal/involves multiple areas so I have a low suspicion for shingles as the cause of his pain. Lab Data Labs: Laboratory Results - last 24 hr 07/22/22 07/22/22 07/22/22 07:20 07:20 07:20 WBC 7.3 RBC 4.87 Hgb 15.1 Hct 46.7 MCV 95.9 H MCH 31.0 MCHC 32.3 RDW Std Deviation 47.8 H RDW Coeff of Jason 13.4 Plt Count 187 MPV 12.1 H Immature Gran % (Auto) 0.600 Neut % (Auto) 55.4 Lymph % (Auto) 28.2 [place] % (Auto) 12.2 H Eos % (Auto) 2.6 Baso % (Auto) 1.0 Absolute Neuts (auto) 4.0 Absolute Lymphs (auto) 2.05 Nucleated RBC % 0 D-Dimer Quant (PE/DVT) Sodium 139 Potassium 3.6 Chloride 107 Carbon Dioxide 27.0 Anion Gap 5 BUN 16 Creatinine 0.85 Estim Creat Clear Calc 77.38 Est GFR (MDRD) Af Amer 117 Est GFR (MDRD) Non-Af 97 BUN/Creatinine Ratio 18.8 Glucose 105 Calcium 8.9 Total Bilirubin 0.30 Direct Bilirubin 0.11 AST 24 ALT 43 Alkaline Phosphatase 82 Total Creatine Kinase Troponin I High Sens 6 Total Protein 7.4 Albumin 3.3 Globulin 4.1 Lipase 177 07/22/22 07/22/22 07/22/22 07:20 09:43 09:43 WBC RBC Hgb Hct MCV MCH MCHC RDW Std Deviation RDW Coeff of Jason Plt Count MPV Immature Gran % (Auto) Neut % (Auto) Lymph % (Auto) [place] % (Auto) Eos % (Auto) Baso % (Auto) Absolute Neuts (auto) Absolute Lymphs (auto) Nucleated RBC % D-Dimer Quant (PE/DVT) 0.46 Sodium Potassium Chloride Carbon Dioxide Anion Gap BUN Creatinine Estim Creat Clear Calc Est GFR (MDRD) Af Amer Est GFR (MDRD) Non-Af BUN/Creatinine Ratio Glucose Calcium Total Bilirubin Direct Bilirubin AST ALT Alkaline Phosphatase Total Creatine Kinase 51 Troponin I High Sens 6 Total Protein Albumin Globulin Lipase Radiography Diagnostic Testing: Clinical Impression(s) from Imaging Studies Ribs w/Chest X-Ray 07/22/22 07:35 IMPRESSION: Normal chest and left ribs series. Electronically Signed: Cosme Loaiaz MD at 8:09 EST , Brain CT 07/22/22 10:13 IMPRESSION: 1. No acute intracranial abnormality. 2. Mild white matter changes which may represent chronic microvascular disease or inflammatory demyelination. Electronically Signed: Cosme Loaiza MD at 10:57 EST , Rhythm Strip Rhythm Strip: Sinus Rhythm Rate: 68 Ectopy: None EKG Initial EKG: Attestation: I personally reviewed and interpreted this EKG as follows: Interpretation: Sinus Rhythm Comments: Normal sinus rhythm at a rate of 68 bpm Normal axis Normal intervals Normal ST segments Management Discussion w/another healthcare provider: Director Of [employer] Sales (Neurology) and iron worker foreman/Case management Discharge Plan Triage Chief Complaint: Chest Pain ED Provider: Kaylah Hilario Dx/Rx/DC Orders Clinical Impression: Acute chest wall pain, Multiple sclerosis, Acute pain of left thigh Instructions: ED Chest Pain, Uncertain Cause Prescriptions: No Action NK Primary Care Provider: Care Physician,No Primary Referrals: Chata Fernandes MD [Med Staff - Pet Nutrition Specialist] - As soon as possible Kaylah Hilario, [Emergency Provider] - Care Physician,No Primary [Primary Care Provider] - Activity Restrictions/Additional Instructions: call the [facility] scheduling line today to schedule close follow-up appointment with neurology through the [facility]. Their number is [phone]. You should be contacted by the front office manager to set up appointment but call this number if you do not hear from them. The ADDRESS IS [address] [place] [address] Please follow-up with her primary care doctor as well for further cardiac evaluation. Please alternate ibuprofen and Tylenol at home for your pain. You may also use [id number] Lidoderm patches. Disposition Disposition: Home, Self Care Discharge Date/Time: 07/22/22 13:18
[2022-07-22 13:17] VITALS: BP 154/90; PULSE 72; RESP 16; O2SAT 95
== END 2022-07-22 13:18 | disposition home or self-care (01) ==
PROVIDERS: Emergency Provider Emergency Medicine; Visit Provider Emergency Medicine
DX: R07.89 Other chest pain (principal); G35 Multiple sclerosis; M79.652 Pain in left thigh
CPT/HCPCS: 70450; 71101; 80048; 80076; 82550; 83690; 84484; 85025; 85379; 93005; 96374; 99284; A4216

== ENCOUNTER 2023-03-04 09:17 | Emergency (ER) | payer OTHER, SELFPAY ==
[2023-03-04 09:19] VITALS: BP 155/78; PULSE 71; RESP 16; TEMP 36.2; O2SAT 96; BMI 33.1
--- NOTE | 2023-03-04 09:34 | EKG12_ITS ---
Test Reason : CP Blood Pressure : / mmHG Vent. Rate : 064 BPM Atrial Rate : 064 BPM P-R Int : 158 ms QRS Dur : 084 ms QT Int : 402 ms P-R-T Axes : 015 035 009 degrees QTc Int : 414 ms Normal sinus rhythm Normal ECG Confirmed by RAVI RAMSAY, GARY ([id number]), copy editor ТАТЬЯНА BENNETT ([id number]) on 03/08/2023 2:16:58 PM Referred By: JOLIE/MACKENZIE Confirmed By:GARY RODRIGUES MD
--- NOTE | 2023-03-04 09:35 | EDS_ITS ---
HPI History of Present Illness Chief Complaint: Chest Pain Informant: patient Narrative Narrative: 63-year-old male presenting to the emergency department with the chief complaint of left chest and neck pain. Patient states that 30 minutes prior to examination he was driving when he suddenly felt this pain. Described as a sharp pressure that is worse with touch and movement. He notes discomfort in the neck when he takes a deep breath. He denies any resting shortness of breath. No palpitations. He has had this pain about 6 months ago and it resolved. He has a history of MS but does not currently take any medications. Has had prior cholecystectomy approximately 1 year ago. He does not go to the doctor or complain. Non-smoker. He has never had stress test or heart catheterization. No DVT PE risk factors. CVD Risk Factors: Negative for Hypertension, Diabetes, Hypercholesterolemia, Family History 1' </=55 or Smoking PE Risk Factors: Negative for Recent Travel/Surgery, Recent Immobilization, Prior DVT or PE or OCP + Smoking + >/=35 PFSH PFSH Medical History (Updated 03/04/23 @ 12:[address] Byron Morales DO) Multiple sclerosis Home Medications cyclobenzaprine 10 mg tablet 10 mg PO TID PRN Muscle Spasm #15 TABLETS 03/04/23 [Rx Last Taken Unknown] ibuprofen 600 mg tablet 600 mg PO Q8H PRN PRN fever or pain #20 TABLETS 03/04/23 [Rx Last Taken Unknown] Allergy/AdvReac Type Severity Reaction Status Date / Time Penicillins [PCN] Allergy Rash Verified 03/04/23 09:20 Surgical History Hx of cholecystectomy Social History Smoking Status: Never smoker [facility] ED Constitutional Constitutional ED: Denies chills, fever(s) or weight loss Eyes Eyes: Denies change in vision or diplopia ENT ENT ED: Denies ear pain, rhinorrhea or sore throat Cardiovascular Cardiovascular: Reports chest pain; Denies orthopnea, palpitations or racing heartbeat Respiratory/Chest Respiratory/Chest: Denies cough, dyspnea or orthopnea Gastrointestinal Gastrointestinal: Denies abdominal pain, diarrhea, nausea or vomiting Genitourinary Genitourinary ED: Denies dysuria, hematuria or urinary frequency Musculoskeletal Musculoskeletal: Reports neck pain; Denies arthralgias or myalgias Integumentary Denies abscess or rash Neurologic Neurologic: Denies headache(s) or weakness Psychiatric Psychiatric: Denies anxiety, depression, suicidal ideation or suicidal thoughts Endocrine Endocrinology: Denies polydipsia, polyphagia or polyuria Allergic/Immunologic Allergic/Immunologic ED: Denies mouth swelling, tongue swelling or urticaria EXAM Physical Exam Const Vital Signs: 03/04/23 09:19 03/04/23 09:25 Temperature 97.1 F L Temperature Source Temporal Pulse Rate 71 Respiratory Rate 16 Respiratory Effort Normal Non-Labored Blood Pressure 155/78 H Blood Pressure Mean 103 Pulse Ox 96 Oxygen Delivery Method Room Air Positive well nourished and well developed General Appearance ED: well developed HEENT Reports normocephalic, head/scalp atraumatic and moist mucous membranes Eyes PERRL and EOMs intact bilaterally Neck no lymphadenopathy, supple and no JVD Neck Narrative: Reports exacerbating his pain when I palpate to the posterior left musculature and along the scalene muscles onto the left chest wall. Chest Wall Negative for inspection of chest normal or palpation of chest normal Chest: tenderness Resp normal respiratory effort and clear to auscultation bilaterally Cardio regular rate, regular rhythm and no murmurs GI normal to inspection, nondistended, normoactive bowel sounds and non-tender Palpation: soft Back/Spine no CVA tenderness and normal ROM Extremity normal to inspection General Extremety ED: Negative for edema General Extremity: Negative for edema Neuro oriented x3 and CN's II-XII intact bilaterally Sensorium / Orientation: alert Motor Exam: strength 5/5 throughout Psych mental status grossly normal Mood & Affect: Negative for depressed or tearful Skin no rashes or lesions noted and no wounds MDM MDM MDM Narrative Medical decision making narrative: My independent interpretation of the chest x-ray is no acute process normal mediastinal silhouette. CBC shows normal hemoglobin and white count. 2 sets of cardiac enzymes are normal. BMP shows normal potassium and sodium levels. Creatinine 0.92. Patient's EKG is unchanged from baseline. Patient received a dose of Toradol as well as aspirin therapy. His pain did improve but started to come back. Clinically this appears to be more musculoskeletal in nature. Question if there could be a component of his MS. However this did start rather abruptly. We can try a muscle relaxant some anti- inflammatories follow-up if not improving return if worsening Lab Data Attestation: I reviewed the patient's lab results. Labs: Laboratory Results - last 24 hr 03/04/23 03/04/23 09:25 11:00 WBC 7.5 RBC 4.99 Hgb 15.4 Hct 47.3 MCV 94.8 H MCH 30.9 MCHC 32.6 RDW Std Deviation 47.7 H RDW Coeff of Jason 13.6 Plt Count 178 MPV 12.7 H Immature Gran % (Auto) 0.300 Neut % (Auto) 61.2 Lymph % (Auto) 23.5 [place] % (Auto) 11.5 H Eos % (Auto) 2.3 Baso % (Auto) 1.2 H Absolute Neuts (auto) 4.6 Absolute Lymphs (auto) 1.75 Nucleated RBC % 0 Sodium 139 Potassium 3.9 Chloride 108 H Carbon Dioxide 27.0 Anion Gap 4 L BUN 10 Creatinine 0.92 Estim Creat Clear Calc 70.56 Est GFR (MDRD) Af Amer 107 Est GFR (MDRD) Non-Af 88 BUN/Creatinine Ratio 10.9 Glucose 102 Calcium 8.9 Troponin I High Sens 7 7 Radiography Diagnostic Testing: Clinical Impression(s) from Imaging Studies Chest X-Ray 03/04/23 09:40 IMPRESSION: No demonstrated acute cardiopulmonary process. Electronically Signed: Terra Ureña MD at 10:00 EDT Reading Location ID and State: [facility] / [place] Tel , Service support , EKG Initial EKG: Attestation: I personally reviewed and interpreted this EKG as follows: Comments: Normal sinus rhythm with ventricular rate of 64 bpm. This EKG appears grossly unchanged from EKG 22 July 2022 Discharge Plan Triage Chief Complaint: Chest Pain ED Provider: Byron Morales Dx/Rx/DC Orders Clinical Impression: Acute neck pain, Multiple sclerosis, Chest pain Instructions: Your Neck Muscles, ED Chest Pain, Noncardiac Prescriptions: New cyclobenzaprine [cyclobenzaprine] 10 mg tablet 10 mg PO TID PRN (Reason: Muscle Spasm) Qty: 15 0RF ibuprofen 600 mg tablet 600 mg PO Q8H PRN PRN (Reason: fever or pain) Qty: 20 0RF Primary Care Provider: Care Physician,No Primary Referrals: Claudio Shane MD [Med Staff - Active Staff] - 1 Week if not improving Care Physician,No Primary [Primary Care Provider] - Disposition Disposition: Home, Self Care
[2023-03-04] MEDS: Ketorolac 30 MG/ML Syringe IV (09:38)
[2023-03-04] MEDS: Aspirin 81 MG TAB.CHEW 324 MG PO (09:39)
--- NOTE | 2023-03-04 09:40 | RAD_ITS ---
STUDY: X-RAY CHEST REASON FOR EXAM: Male, 63 years old. Chest pain TECHNIQUE: Single AP portable view of the chest. COMPARISON: July 22, 2022 chest x-ray FINDINGS: The lungs are clear and expanded. There is no demonstrated pleural abnormality. There is mild cardiac enlargement. Normal mediastinum and amanda. Normal visualized pulmonary arteries. Normal visualized aortic arch and descending thoracic aorta. There are diffuse degenerative changes of the visualized thoracic spine. Normal visualized ribs, clavicles, and shoulders. There is no demonstrated abnormality of the visualized soft tissue structures of the upper abdomen. RAD/Chest 1 View (Portable) IMPRESSION: No demonstrated acute cardiopulmonary process. Electronically Signed: Terra Ureña MD at 10:00 EDT ,
[2023-03-04 09:59] LABS: Absolute Lymphocyte Count 1.75 X10^3/uL (0.83-4.51); Absolute Neutrophil Count 4.6 X10^3/uL (2.0-7.7); Basophil# 0.09 X10^3/uL; Basophil% 1.2 % (0-1); Eosinophil# 0.17 X10^3/uL; Eosinophils% 2.3 % (0-5); Hematocrit 47.3 % (40-54); Hemoglobin 15.4 g/dL (13.0-16.5); Lymphocyte # 1.75 X10^3/ul (0.83-4.51); Lymphocyte % 23.5 % (19-41); Mean Corp Hgb Conc 32.6 g/dL (32-36); Mean Corpuscular Hgb 30.9 pg (27.0-32.0); Mean Corpuscular Volume 94.8 fL (80-94); Mean Platelet Vol. 12.7 fl (6.2-12.0); Monocyte# 0.86 X10^3/uL; Monocyte% 11.5 % (0-10); NRBC Flagged by Analyzer 0 % (0-5); Neutrophil # 4.56 X10^3/uL (2.7-7.7); Neutrophil % 61.2 % (47-70); Platelet Count 178 K/mm3 (150-450); RBC Distribution Width CV 13.6 % (11.6-14.6); RBC Distribution Width SD 47.7 fl (35.1-43.9); Red Blood Count 4.99 M/mm3 (4.6-6.2); White Blood Count 7.5 K/mm3 (4.4-11.0)
[2023-03-04 10:08] LABS: Anion Gap 4 (5-15); BUN 10 mg/dL (7-18); BUN/Creat Ratio 10.9 RATIO (10-20); Calcium,Total 8.9 mg/dL (8.5-10.1); Chloride 108 mmol/L (98-107); Creatinine, Serum 0.92 mg/dL (0.70-1.30); EST Glomerular Filtration Rate 88 mL/min (>60); Est Glom Filt Rate - Afr Amer 107 mL/min (>60); Estimated Creatinine Clearance 70.56 ml/min; Glucose 102 mg/dL (74-106); Potassium 3.9 mmol/L (3.5-5.1); Sodium Level 139 mmol/L (136-145); Troponin-I HS (w/2H Reflex) 7 pg/mL (3.0-78.0)
[2023-03-04 10:17] VITALS: BP 139/78; PULSE 57; RESP 21; O2SAT 95
[2023-03-04 11:17] VITALS: BP 130/82; PULSE 67; RESP 18; O2SAT 96
[2023-03-04 11:24] LABS: Troponin-I HS 7 pg/mL (3.0-78.0)
[2023-03-04 11:45] LABS: Reflex Troponin-HS? (from REC) Y
== END 2023-03-04 12:25 | disposition home or self-care (01) ==
PROVIDERS: Emergency Provider Emergency Medicine; Visit Provider Emergency Medicine
DX: M54.2 Cervicalgia (principal); G35 Multiple sclerosis; R07.9 Chest pain, unspecified
CPT/HCPCS: 71045; 80048; 84484; 85025; 93005; 96374; 99284; A4216

== ENCOUNTER 2024-02-06 08:06 | Emergency (ER) | payer SELFPAY ==
[2024-02-06 08:07] VITALS: BP 174/87; PULSE 99; RESP 16; TEMP 36.7; O2SAT 94; BMI 34.8
[2024-02-06 08:14] VITALS: BP 158/96; PULSE 96; RESP 18; TEMP 37.1; O2SAT 95
--- NOTE | 2024-02-06 08:33 | ED.VIS.DENTA ---
HPI History of Present Illness Chief Complaint: Headache Narrative Narrative: Chief complaint and HPI: Headache and right jaw pain. 64-year-old gentleman presents for evaluation of headache and right jaw pain. Patient states yesterday shortly after waking up he developed right jaw pain and a headache. Patient states that he has taken Tylenol with minimal relief. He denies any fever, chills, shortness of breath, chest pain, abdominal pain. He states yesterday he had 1 episode of nausea and vomiting, which he states was secondary to pain. He does not endorse any nausea, vomiting besides that one episode. Denies abdominal pain or dysuria. Patient states that his tooth has been hurting on the right side. He has not seen a dentist in years. He denies any neurological deficit, numbness/weakness. Denies any blurry vision, photophobia, phonophobia. States he has a little bit of pain in his right ear. Denies any URI symptoms. Review of systems: See HPI Medications: As listed on the chart Allergies: As listed on the chart PFSH: Per chart Vital signs: As listed on the chart. Reviewed. Physical exam: Gen: A&O x3, NAD Head: Normocephalic, atraumatic Eyes: No sclera icterus, conjunctiva clear, PERRL, EOMI ENT: TMs clear BL, moist mucous membranes, posterior oropharynx unremarkable, uvula midline, poor dentition, multiple dental caries and broken teeth, patient has tenderness to palpation of his premolar teeth on the right bottom, mild swelling of the gum in this area but no visible abscess, no Alexei's angina, tolerating secretions Neck: Trachea midline, No JVD, Full ROM, no swelling CV: RRR, no murmurs Resp: Lungs CTA BL, no w/r/c GI: Abd soft, non-distended, non-tender, no r/r/g Musc: Full ROM, no deformity Skin: Warm Neuro: Alert, oriented, grossly intact, sensation intact Psych: Cooperative, appropriate mood and affect [facility] Medical History (Updated 02/06/24 @ 09:[address] Santhosh Rachel, DO) Multiple sclerosis Home Medications ?Medication ?Instructions ?Recorded ?Last Taken ?Type cyclobenzaprine 10 mg tablet 10 mg PO TID PRN Muscle Spasm #15 03/04/23 Unknown Rx TABLETS ibuprofen 600 mg tablet 600 mg PO Q8H PRN PRN fever or 03/04/23 Unknown Rx pain #20 TABLETS doxycycline hyclate 100 mg capsule 100 mg PO BID 7 days #14 caps 02/06/24 Unknown Rx Allergy/AdvReac Type Severity Reaction Status Date / Time Penicillins (PCN) Allergy Rash Verified 03/04/23 09:20 Family History no significant family his Surgical History Hx of cholecystectomy Social History Smoking Status: Never smoker EXAM Physical Exam Const Vital Signs: 02/06/24 08:07 02/06/24 08:14 02/06/24 10:07 Temperature 98.1 F 98.7 F 98.4 F Temperature Source Oral Oral Pulse Rate 99 96 83 Respiratory Rate 16 18 18 Blood Pressure 174/87 H 158/96 H 153/69 H Blood Pressure Mean 116 116 97 Pulse Ox 94 95 96 Oxygen Delivery Method Room Air Room Air MDM MDM MDM Narrative Medical decision making narrative: 64-year-old male with history of MS medication presents for evaluation headache and right tooth pain. Denies acute onset of headache reaching maximal intensity in under one hour. This is neither the worst headache that they have ever experienced, nor was the onset timed with exertional activity or trauma. Patient has not experienced any fever, unusual neck pain or stiffness, syncope, or near syncope. They deny numbness, tingling, or weakness of the extremities. Differential diagnosis includes but is not limited to tension headache, migraine headache, dental infection. NS bolus, Reglan, Toradol ordered for symptoms. On physical exam, patient denies a suspected dental infection. This is likely what is causing his pain and headache. He denies any systemic symptoms therefore I do not think getting labs or imaging are needed at this time. On reexamination, patient states his headache has improved. Patient is stable to discharge home. Patient is to follow-up with one of the dentist on the sheet provided to him as well as his PCP. Patient has a allergy to penicillin therefore 7-day course of doxycycline given for antibiotics. Return precautions explained. Ibuprofen and Tylenol as needed for pain. Patient confirmed understanding. Impression: 1. Right dental infection 2. Headache Discharge Plan Triage Chief Complaint: Headache Other Complaint: Dental ED Provider: Santhosh Rachel Dx/Rx/DC Orders Clinical Impression: Headache, Dental infection Instructions: ED Dental Pain, ED Headache Unspecified Prescriptions: New doxycycline hyclate 100 mg capsule 100 mg PO BID 7 Days Qty: 14 0RF No Action cyclobenzaprine [cyclobenzaprine] 10 mg tablet 10 mg PO TID PRN (Reason: Muscle Spasm) Qty: 15 0RF ibuprofen 600 mg tablet 600 mg PO Q8H PRN PRN (Reason: fever or pain) Qty: 20 0RF Primary Care Provider: Care Physician,No Primary Referrals: Fady Velasquez, [Non-Staff] - 3-5 Days Dentist,Your [STAFF PHYSICIAN] - 3-5 Days Activity Restrictions/Additional Instructions: Follow-up with a dentist to soon as possible 1 that is provided to you. Take all your antibiotics. Tylenol and ibuprofen as needed for pain. Print Language: [place] Disposition Disposition: Home, Self Care Discharge Date/Time: 02/06/24 10:07
[2024-02-06] MEDS: Ketorolac 15 MG/ML Vial IV (08:41)
[2024-02-06] MEDS: 0.9% Normal Saline (1000mL) 1,000 ML 999 ML IV (08:41)
[2024-02-06] MEDS: Metoclopramide 10 MG/2 ML Vial IV (08:42)
[2024-02-06 10:07] VITALS: BP 153/69; PULSE 83; RESP 18; TEMP 36.9; O2SAT 96
== END 2024-02-06 10:07 | disposition home or self-care (01) ==
PROVIDERS: Emergency Provider Surgery; Visit Provider Surgery
DX: K04.7 Periapical abscess without sinus (principal); G35 Multiple sclerosis; R51.9 Headache, unspecified
CPT/HCPCS: 96361; 96374; 96375; 96376; 99285; J7030

== ENCOUNTER 2025-03-17 12:43 | Inpatient (IN) | payer SELFPAY ==
[2025-03-17] VITALS (33 sets, daily range): BP systolic 99–168; BP diastolic 52–108; PULSE 62–79; RESP 16–25; TEMP 35.9–36.6; O2SAT 93–100; BMI 37.0; BMI 35.6
--- NOTE | 2025-03-17 12:50 | ED.RN ---
SIGNIFICANT NYSTAGMUS
--- NOTE | 2025-03-17 12:58 | CT_ITS ---
PROCEDURE: STROKE BRAIN/HEAD WITHOUT CONT 03/17/2025 REASON FOR EXAM: NEURO DEFICIT, ACUTE, STROKE SUSPECTED TECHNIQUE: Procedure Code: CTBR.ST Modality: CT Procedure: STROKE BRAIN/HEAD WITHOUT CONT Coronal and Sagittal reconstruction series were provided. One or more dose reduction techniques were used (e.g., Automated exposure control, adjustment of the mA and/or kV according to patient size, use of iterative reconstruction technique. RADIATION DOSE SUMMARY: CTDlvol: 44.99 mGy DLP: 829.85 mGycm COMPARISON: None. FINDINGS: Brain: Within normal limits for age. Mild white matter hypodensities may be due to chronic small-vessel ischemia. No acute territorial infarction. No acute intracranial hemorrhage. No mass-effect or midline shift. CSF Spaces: Unremarkable. Sinuses/Mastoids: Clear. Bones: No acute bony abnormalities. CT/STROKE Brain/Head without Cont IMPRESSION: No acute intracranial abnormalities. Reading Location: [id number]
--- NOTE | 2025-03-17 12:58 | EKG12_ITS ---
Test Reason : STROKE TEAM Blood Pressure : */* mmHG Vent. Rate : 74 BPM Atrial Rate : 74 BPM P-R Int : 162 ms QRS Dur : 86 ms QT Int : 408 ms P-R-T Axes : 30 44 10 degrees QTcB Int : 452 ms Normal sinus rhythm Normal ECG Confirmed by JUN BRADSHAW ([id number]), editor greeting card KARL CUELLAR ([id number]) on 03/19/2025 6:57:16 AM Referred By: Confirmed By: JUN BRADSHAW
--- OUTSIDE RECORDS SUMMARY | 2025-03-17 13:01 | XMS RPT_ITS | CCD ---
Author Organization [facility] Care Team Providers Care Ultrasonographer Name Role Phone LISA INTERIANO Admitting Unavailable LISA INTERIANO Attending Unavailable LISA INTERIANO Primary Care Unavailable CEBUL, PIETER III Consulting Unavailable CEBUL, PIETER III Referring Unavailable PROVIDER, UNKNOWN Consulting Unavailable LISA INTERIANO Admitting Unavailable LISA INTERIANO Attending Unavailable CEBUL, PIETER III Referring Unavailable LISA INTERIANO Primary Care Unavailable CEBUL, PIETER III Consulting Unavailable PROVIDER, UNKNOWN Consulting Unavailable Allergies Allergy Classification Reported Allergen(s) Allergy Type Date of Onset Reaction(s) Facility (1 source) Penicillins Drug allergy (disorder) [facility] Repository Results Test Name Value Interpretation Reference Range [facility] it EMERGENCY REPORTon 0 EMERGENCY REPORT [facility] EMERGENCY ROOM REPORT NAME ACCOUNT SEX AGE ADMIT DISCHARGE PT MED. RECORD# NUMBER DATE DATE TYPE BALJINDER [id number] Jonathan 59 08/31/19 09/01/19 Merari [place] [id number] ROOM: ER DATE OF : 1960 DICTATING PHYSICIAN: Lisa Guerrero CHIEF COMPLAINT: Abdominal pain. HISTORY OF PRESENT ILLNESS: This is a 59-year-old male patient that ate a cheeseburger and sweet potato for supper around 5 or 6:00. About an hour later he started having severe abdominal pain which on my exam is right upper quadrant. He said he has never had a problem with his gallbladder before, nor has he had a problem with his stomach. It was a rather acute onset. He has not had any episodes recently. He denies any headache, earache, sore throat, cough, blurred vision, double vision, chest pain, pressure, nausea, vomiting or abdominal pain or urinary symptoms. PAST MEDICAL HISTORY: He denies. PAST SURGICAL HISTORY: Hernia. MEDICATIONS: None. ALLERGIES: Penicillin. SOCIAL HISTORY: Negative for alcohol, tobacco, or illicit drug abuse. Denies antiinflammatory, NSAID, or alcohol usage, history of ulcers. REVIEW OF SYSTEMS: Ten systems reviewed and presented above in HPI. PHYSICAL EXAMINATION: Blood pressure 158/97, pulse 93, respiratory rate 24, temperature 98.0, O2 saturation 96% on room air. General: Well-developed, well-nourished, well-hydrated, alert and oriented x3. He is uncomfortable, sitting upward and then laying backward. Head is normocephalic, atraumatic. Pupils are equal and reactive to light bilaterally. Mucous membranes are moist. Trachea is midline. Neck is supple. Heart rate and rhythm is slightly tachycardic without murmur, gallop or rub. Lungs clear to auscultation bilaterally without wheezes, rales or rhonchi. When I palpate his right upper quadrant he has inspiratory pause and yells. No midline tenderness. No lower abdominal tenderness. Good bowel sounds. No guarding, rebound or rigidity. Femoral pulses are symmetrical. No lower extremity edema, calf tenderness or swelling. Skin is warm and dry without cyanosis, ecchymosis, petechiae, or purpura. Page 1 of 2 MELYSSA GALE Emergency Room Report MELYSSA GALE : 1960 EMERGENCY DEPARTMENT COURSE AND TREATMENT: I gave him IV fluids and will make him n.p.o. Laboratory workup for abdominal pain and CT of the abdomen and pelvis as well as pain and nausea control. DIAGNOSIS: Dictated By: Lisa Guerrero DO 08/31/19 22:31 JOB #: [id number] Transcribed By: anuj 09/01/19 20:29 Electronically signed by: E-Sign: LISA GUERRERO MD 09/02/19 01:43 Page 2 of 2 MELYSSA GALE Emergency Room Report Normal [facility] CBC + DIFFon 09-01-2019 Basophils (Bld) [#/Vol] 0.00 x10EE3/UL Normal 0.00 - 0.10 [facility] Comment on above: Performed By: #### 2 73044 #### [facility],[address] [place] [address] 20923 Basophils/100 WBC (Bld) 0.4 % Normal 0.0 - 2.0 [facility] Comment on above: Performed By: #### 2 94517 #### [place] [address] CBC + DIFF Normal [facility] Comment on above: Result Comment: CBC- COMPLETE BLOOD COUNT Performed By: #### 2 35019 #### [place] [address] Eosinophils (Bld) [#/Vol] 0.10 x10EE3/UL Normal 0.00 - 0.50 [facility] Comment on above: Performed By: #### 2 68280 #### [place] [address] Eosinophils/100 WBC (Bld) 0.9 % Normal 0.0 - 7.0 [facility] Comment on above: Performed By: #### 2 03001 #### [place] [address] Erythrocyte distribution width (RBC) [Ratio] 13.8 % Normal 12.0 - 15.6 [facility] Comment on above: Performed By: #### 2 88684 #### [place] [address] Hematocrit (Bld) [Volume fraction] 45.6 % Normal 40.0 - 52.0 [facility] Comment on above: Performed By: #### 2 81141 #### [place] [address] Hemoglobin (Bld) [Mass/Vol] 15.1 g/dL Normal 13.0 - 17.5 [facility] Comment on above: Performed By: #### 2 21384 #### [place] [address] Lymphocytes (Bld) [#/Vol] 1.40 x10EE3/UL Normal 0.80 - 2.80 [facility] Comment on above: Performed By: #### 2 93556 #### [address],[place] [address] Lymphocytes/100 WBC (Bld) 12.5 % Low 20.0 - 45.0 [facility] Comment on above: Performed By: #### 2 19032 #### [facility],[address] [place] [address] 40252 MANUAL DIFF N/A Normal [facility] Comment on above: Performed By: #### 2 72045 #### [facility],[address] [place], [place] [id number] MCH (RBC) [Entitic mass] 31 pg Normal 27 - 33 [facility] Comment on above: Performed By: #### 2 76171 #### [facility],[address] [place], [place] [address] MCHC (RBC) [Mass/Vol] 33 X10 3 Normal 32 - 36 [facility] Comment on above: Performed By: #### 2 77210 #### [facility],[address] [place] [address] 27539 MCV (RBC) [Entitic vol] 92 fL Normal 81 - 98 [facility] Comment on above: Performed By: #### 2 81676 #### [facility],[address] [place] [address] 12811 Monocytes (Bld) [#/Vol] 0.90 x10EE3/UL Normal 0.20 - 1.00 [facility] Comment on above: Performed By: #### 2 02225 #### [facility],[address] [place] [address] 07738 MONOS % 7.9 % Normal 0.0 - 10.0 [facility] Comment on above: Performed By: #### 2 17960 #### [facility],[address] [place] [address] 55432 Morphology Anibal (Bld) [Interp] N/A Normal [facility] Comment on above: Performed By: #### 2 40801 #### [facility],[address] [place] [address] 95164 Neutrophils (Bld) [#/Vol] 8.70 x10EE3/UL High 1.50 - 7.10 [facility] Comment on above: Performed By: #### 2 16467 #### [facility],[address] [place] [address] 93705 Neutrophils/100 WBC (Bld) 78.3 % High 46.0 - 76.0 [facility] Comment on above: Performed By: #### 2 88052 #### [facility],[address] [place] [address] 59087 Platelet mean volume (Bld) [Entitic vol] 10.5 fL Normal 6.4 - 10.5 [facility] Comment on above: Result Comment: AUTO MATED DIFFERENTIAL Performed By: #### 2 20341 #### [address] [address] Platelets (Bld) [#/Vol] 197 x10EE3/UL Normal 150 - 450 [facility] Comment on above: Performed By: #### 2 09149 #### [facility],[address] [place] [address] 62923 RBC (Bld) [#/Vol] 4.96 x 10EE6/UL Normal 4.50 - 6.00 [facility] Comment on above: Performed By: #### 2 39006 #### [address] [address] WBC (Bld) [#/Vol] 11.1 x 10EE3/UL High 4.5 - 10.8 [facility] Comment on above: Performed By: #### 2 21670 #### [address] [address] CMP with eGFRon 09-01-2019 Age - Reported 59 years Normal [facility] Comment on above: Performed By: #### 2 78895 #### [address] [address] Albumin [Mass/Vol] 4.1 g/dL Normal 3.4 - 4.8 [facility] Comment on above: Performed By: #### 2 45211 #### [facility],[address] [place] [address] 38621 Albumin/Globulin [Mass ratio] 1.2 {ratio} Normal 0.9 - 1.6 [facility] Comment on above: Performed By: #### 2 56381 #### [facility],[address] [place] [address] 64563 ALK PHOS 67 U/L Normal 38 - 126 [facility] Comment on above: Performed By: #### 2 36375 #### [facility],[address] [place] [address] 86327 ALT/SGPT 51 U/L High 10 - 40 [facility] Comment on above: Performed By: #### 2 55288 #### [facility],[address] [place] [address] 08625 Anion gap [Moles/Vol] 13 mmol/L Normal 10 - 20 [facility] Comment on above: Performed By: #### 2 71133 #### [facility],[address] [place] [address] 00695 AST/SGOT 36 U/L Normal 13 - 39 [facility] Comment on above: Performed By: #### 2 53703 #### [facility],[address] [place] [address] 75000 B/C RATIO 25 ratio Normal 0 - 30 [facility] Comment on above: Performed By: #### 2 79259 #### [facility],[address] [place] [address] 39525 Bilirubin [Mass/Vol] 0.4 mg/dL Normal 0.0 - 1.5 [facility] Comment on above: Performed By: #### 2 86057 #### [facility],[address] [place] [address] 29348 Calcium [Mass/Vol] 8.9 mg/dL Normal 8.6 - 10.2 [facility] Comment on above: Performed By: #### 2 47133 #### [facility],[address] [place] [address] 34679 Chloride [Moles/Vol] 104 mmol/L Normal 98 - 107 [facility] Comment on above: Performed By: #### 2 88348 #### [facility],[address] [place] [address] 79392 CO2 [Moles/Vol] 24.3 mmol/L Normal 21.0 - 31.0 [facility] Comment on above: Performed By: #### 2 86129 #### [facility],[address] [place] [address] 02416 Creatinine [Mass/Vol] 1.0 mg/dL Normal 0.7 - 1.3 [facility] Comment on above: Performed By: #### 2 76734 #### [facility],[address] [place] [address] 47723 GFR/1.73 sq M predicted among non-blacks MDRD (S/P/Bld) [Vol rate/Area] Normal [facility] Comment on above: Result Comment: COMP REHENSIVE METABOLIC PANEL Performed By: #### 2 80552 #### [facility],[address] [place] [address] 17821 GFR/1.73 sq M predicted among non-blacks MDRD (S/P/Bld) [Vol rate/Area] mL/min/{1.73_m2} Normal 60 - 999 [facility] Comment on above: Result Comment: ACCO RDING TO THE NATIONAL KIDNEY DISEASE EDUCATION PROGRAM(NKDE), A NORMAL eGFR IS A VALUE GREATER THAN OR EQUAL TO 60 ML/MIN/1.73 SQ METERS. CHRONIC KIDNEY DISEASE: <60mL/MIN/1.73 SQ METERS KIDNEY FAILURE: <15mL/MIN/1.73 SQ METERS THIS TEST SHOULD ONLY BE USED FOR PATIENTS 18 YEARS OF AGE AND OLDER. Performed By: #### 2 68309 #### [facility],[address] [place] [address] 88251 Globulin (S) [Mass/Vol] 3.4 g/dL Normal 1.5 - 3.8 [facility] Comment on above: Performed By: #### 2 36687 #### [facility],[address] [place] [address] 65926 Glucose [Mass/Vol] 111 mg/dL High 74 - 106 [facility] Comment on above: Performed By: #### 2 01096 #### [facility],[address] [place] [address] 03099 Potassium [Moles/Vol] 3.8 mmol/L Normal 3.5 - 5.1 [facility] Comment on above: Performed By: #### 2 37313 #### [address] [address] Protein [Mass/Vol] 7.5 g/dL Normal 6.4 - 8.3 [facility] Comment on above: Performed By: #### 2 19965 #### [facility],[address] [place] [address] 64386 Sodium [Moles/Vol] 137 mmol/L Normal 136 - 145 [facility] Comment on above: Performed By: #### 2 42327 #### [facility],[address] [place] [address] 04533 Urea nitrogen [Mass/Vol] 25 mg/dL High 6 - 20 [facility] Comment on above: Performed By: #### 2 55004 #### [facility],[address] [place] [address] ABDOMEN/PELVIS [facility] 2019 CT ABDOMEN/PELVIS [place] [address] Patient: MELYSSA GALE Phone#: : 1960 Age: 59 Gender: M Pt. Type: ER Account: [id number] Location: 052 Ordering: DR. LISA GUERRERO Exam Date: 08/31/2019/23:24 Family Phys: PIETER McphersonQuincy MURPHYNIKOL Charge Code: [id number] Physician: Judith Basin Order #: [id number] DLP Dose#: 16.60 PROCEDURE: CT ABDOMEN/PELVIS WITH CONTRAST COMPARISON: None. INDICATIONS: Abdominal pain. TECHNIQUE: After obtaining the patient's consent, CT images were created with non-ionic intravenous contrast material. All CT scans at this facility use dose modulation, iterative reconstruction, and/or weight based dosing when appropriate to reduce radiation dose to as low as reasonably achievable. IV CONTRAST: Omnipaque 350,80ml TOTAL DOSE: 16.60 CTDIvol(mGy) FINDINGS: LIVER: Normal. No enlargement, atrophy, abnormal density, or significant focal lesion. BILIARY: The gallbladder is present and distended. PANCREAS: Normal. No lesion, fluid collection, ductal dilatation, or atrophy. SPLEEN: Normal. No enlargement or focal lesion. KIDNEYS: The kidneys enhance and excrete contrast symmetrically. No hydronephrosis. ADRENALS: Normal. No mass or enlargement. AORTA/VASCULAR: No aortic aneurysm. There is a circumaortic left renal vein. RETROPERITONEUM: Normal. No mass or adenopathy. BOWEL/MESENTERY: No bowel obstruction or dilatation. There is moderate to large stool burden. The appendix contains air. ABDOMINAL WALL: There is a small fat containing umbilical hernia. URINARY BLADDER: Normal. No visible focal wall thickening, lesion, or calculus. PELVIC NODES: Normal. No adenopathy. Continued Report - Page 2 of 2 Patient: MELYSSA GALE Phone#: : 1960 Age: 59 Gender: M Pt. Type: ER Account: [id number] Location: 052 Ordering: DR. LISA GUERRERO Exam Date: 08/31/2019/23:24 Family Phys: PIETER McphersonQuincy ALFONZO Charge Code: [id number] Physician: Judith Basin Order #: [id number] DLP Dose#: 16.60 PELVIC ORGANS: Prostate is present and contains calcifications. BONES: There are degenerative changes of the spine. LUNG BASES: Normal. No visible pulmonary or pleural disease. OTHER: Negative. CONCLUSION: 1. The gallbladder is present and distended. Consider ultrasound evaluation. 2. Constipation. Dictated by: Donnell Butt MD on 09/01/2019 at 9:08 Approved by: Donnell Butt MD on 09/01/2019 at 9:[address] [facility] LIPASEon 09-01-2019 Lipase [Catalytic activity/Vol] 40.0 U/L Normal 18.0 - 51.0 [facility] Comment on above: Performed By: #### 2 30986 #### [place] [address] TROPONINon 09-01-2019 Troponin I.cardiac [Mass/Vol] ng/mL Normal 0.00 - 0.05 [facility] Comment on above: Result Comment: Elev ated troponin (above the 99th percentile) usually indicates myocardial ischemia. Results must be interpreted within the clinical setting. 1.Non-ischemic pathology can also cause elevated troponin levels (e.g., acute pulmonary embolism, myocarditis, pericarditis, heart failure, intracranial injury, rhabdomyolisis, sepsis, shock and renal insufficiency). 2.Approximately 1% of healthy adults have elevated troponin levels. 3.Analytical false positive results rarely occur(due to multiple interferences such as heterophile antibodies). Performed By: #### 2 14631 #### [facility],[address] [place] [address] URINALYSISon 09-01-[address] [facility] Comment on above: Performed By: #### 2 24979 #### [place] [address] Bacteria LM.HPF (Urine sed) [#/Area] TRACE Normal [facility] Comment on above: Performed By: #### 2 00938 #### [place] [address] Bilirubin [Mass/Vol] Negative Normal NORMAL: NEGATIVE [facility] Comment on above: Performed By: #### 2 85149 #### [place] [address] Blood 10 Abnormal NORMAL: NEGATIVE [facility] Comment on above: Performed By: #### 2 67981 #### [facility],[address] [place] [address] Casts LM.LPF (Urine sed) [#/Area] NONE Normal [facility] Comment on above: Performed By: #### 2 09449 #### [facility],[address] [place] [address] Clarity (U) clear Normal NORMAL: CLEAR [facility] Comment on above: Performed By: #### 2 98398 #### [facility],[address] [place] [address] Color (U) yellow Normal NORMAL: YELLOW [facility] Comment on above: Performed By: #### 2 28503 #### [facility],[address] [place] [address] Crystals LM Nom (Urine sed) NONE Normal [facility] Comment on above: Performed By: #### 2 09253 #### [facility],[address] [place], [place] [address] Epi Cells NONE Normal [facility] Comment on above: Performed By: #### 2 09150 #### [facility],[address] [place] [address] 02214 Glucose [Mass/Vol] NORM Normal NORMAL: NORMAL [facility] Comment on above: Performed By: #### 2 97345 #### [facility],[address] [place], [place] [address] Ketone 15 Abnormal NORMAL: NEGATIVE [facility] Comment on above: Performed By: #### 2 21520 #### [facility],[address] [place], [place] [address] Microscopic SEE BELOW Normal [facility] Comment on above: Result Comment: MICR OSCOPIC Performed By: #### 2 17288 #### [facility],[address] [place], [place] [address] Mucous TRACE Normal [facility] Comment on above: Performed By: #### 2 35073 #### [facility],[address] [place] [address] 32179 Nitrite Ql (U) Negative Normal NORMAL: NEGATIVE [facility] Comment on above: Performed By: #### 2 11466 #### [facility],[address] [place] [address] 55288 pH (Bld) 6.5 Normal NORMAL: 5.0-8.[address] [facility] Comment on above: Performed By: #### 2 96015 #### [facility],[address] [place] [address] 46467 Protein (U) [Mass/Vol] Negative Normal NORMAL: NEGATIVE [facility] Comment on above: Performed By: #### 2 58437 #### [facility],[address] [place] [address] Rbc 0-5 Normal 0-3/hpf [facility] Comment on above: Performed By: #### 2 22214 #### [facility],[address] [place] [address] Sp [place] 1.015 Normal NORMAL: 1.010-1.030 [facility] Comment on above: Performed By: #### 2 99188 #### [facility],[address] [place], [place] [address] Specimen type Nom (Spec) Clean catch Normal [facility] Comment on above: Performed By: #### 2 04037 #### [facility],[address] [place], [place] [address] Urobilinog 1 Abnormal NORMAL: NORMAL [facility] Comment on above: Performed By: #### 2 27176 #### [facility],[address] [place], [place] [address] Wbc NONE Normal 0-5/hpf [facility] Comment on above: Performed By: #### 2 05465 #### [facility],[address] [place] [address] 80652 WBC (Bld) [#/Vol] Negative Normal NORMAL: NEGATIVE [facility] Comment on above: Performed By: #### 2 55339 #### [facility],[address] [place] [address] 32803 Yeast LM Ql (Urine sed) NONE Normal [facility] Comment on above: Performed By: #### 2 69122 #### [facility],[address] [place] [address] 37833 US RUQ (GB/PANCREAS)on 08-31 US RUQ (GB/PANCREAS) [place] [address] Patient: MELYSSA GALE Phone#: : 1960 Age: 59 Gender: M Pt. Type: Out Account: [id number] Location: [facility] Ordering: DR. LISA GUERRERO Exam Date: 09/01/2019/6:56 Family Phys: PIETER MEJÍA Charge Code: [id number] Physician: Judith Basin Order #: [id number] DLP Dose#: PROCEDURE: RUQ (GB) ULTRASOUND COMPARISON: None. INDICATIONS: Nonspecific distention of the gallbladder; possible cholecystitis. FINDINGS: Evaluation limited by patient inability to breath hold and position for the exam. LIVER: Limited evaluation of the liver. The parenchyma is unremarkable in echogenicity peer BILIARY: There are numerous small shadowing stones and sludge layering in the dependent portion of the gallbladder. Focally the gallbladder wall measuring up to 0.4 cm; the gallbladder wall of the fundus and 2 cm. No pericholecystic fluid. The common bile duct measures 0.7 cm. PANCREAS: Not visualize RIGHT KIDNEY: Normal renal parenchymal echogenicity. No hydronephrosis. OTHER: Negative. CONCLUSION: 1. Numerous small layering stones (Gallbladder gravel) and sludge in the gallbladder. DICTATED BY: DONNELL BUTT MD ON 09/01/2019 AT 9:25 APPROVED BY: DONNELL BUTT MD ON 09/01/2019 AT 9:[address] [facility] Encounters Encounter Date Encounter Type Care Provider Facility Start: 09-01-2019 End: 09-01-2019 [facility] Start: 08-31-2019 End: 09-01-2019 Emergency department [facility] Procedures Date Procedure Procedure Detail Performing Clinician Start: 09-01-2019 Urinalysis LISA TEJADA SRINIVASAN Comment on above: Result Comment: URIN ALYSIS Performed By: #### 2 49754 #### [facility],[address] [place] [address] Clinical Note 04-04-2021 Note Date & Type Note Facility 04-04-2021 Note Patient Outreach (ALBINO LO) MELYSSA GALE ([id number]) 1960 M Date Time Provider Department 04/04/21 DIRK MENDES During your visit today, we recorded the following information about you: Dirk Mendes Population Health Navigator 04/04/2021 9:16 AM Signed POPULATION HEALTH NAVIGATION OUTREACH Action/FYI I left a voice message for daughter Alyce re: father and pcp appointment No care everywhere Contact made with patient or family member? NO Pt identified by name and : NO Outreach Outcome/Action Unable to reach patient: Left message Reason for Outreach Attribution: Provider Off-boarding Payer: No coverage found. Care Gap Reviewed:: Reminder: Reminder note to check Health Maintenance for items below Health Maintenance items due: DEPRESSION SCREENING Never done COVID-19 VACCINE(1) Never done HEPATITIS C SCREENING Never done HIV SCREENING Never done DTAP,TDAP,TD(1 - Tdap) Never done SHINGRIX VACCINE(1 of 2) Never done PROSTATE CANCER SCREENING DISCUSSION Never done INFLUENZA(1) Never done Advanced Directives Completed: Have you ever planned for future healthcare decisions with a power of tax attorney, living will, or advance directives? No. Please bring a copy to your next appointment or email to [email or web address] Referrals: N/A Message Sent to Practice: NO Navigation Signature: Dirk Mendes Population Health Navigator April 04, 2021 9:15 AM Allergies As of Date: 04/04/2021 Noted Allergy Reaction GLATIRAMER (COPOLYMER 1) 05/13/2002 Comments: rash (aka copaxone) PENICILLINS 10/12/2001 Comments: unsure Date Reviewed: 09/06/2019 Reviewed by: Kelly Hudson - Fully Assessed Reason for Visit: Population Health Navigation Outreach [3910] Cmt: Offboarding Problem List As Of Date 04/04/2021 Noted Resolved Disorders of bursae and tendons in shoulder reg*12/27/2007 12/26/2014 Ventral hernia [K43.9] 01/18/2013 12/26/2014 PUD (peptic ulcer disease) [K27.9] 12/26/2014 Multiple sclerosis (HCC) [G35] 12/26/2014 Tobacco abuse [Z72.0] 12/26/2014 Encounter Status:Closed by [facility], DIRK Mtz on 04/04/21 [facility] Progress note 04-04-2021 Note Date & Type Note Facility 04-04-2021 Note HNO ID: [id number] Author: Dirk Mendes [facility] Health Navigator Service: ? Author Type: ? Type: Progress Notes Filed: 04/04/2021 9:16 AM Note Text: POPULATION HEALTH NAVIGATION OUTREACH Action/FYI I left a voice message for daughter Alyce re: father and pcp appointment No care everywhere Contact made with patient or family member? NO Pt identified by name and : NO Outreach Outcome/Action Unable to reach patient: Left message Reason for Outreach Attribution: Provider Off-boarding Payer: No coverage found. Care Gap Reviewed:: Reminder: Reminder note to check Health Maintenance for items below Health Maintenance items due: DEPRESSION SCREENING Never done COVID-19 VACCINE(1) Never done HEPATITIS C SCREENING Never done HIV SCREENING Never done DTAP,TDAP,TD(1 - Tdap) Never done SHINGRIX VACCINE(1 of 2) Never done PROSTATE CANCER SCREENING DISCUSSION Never done INFLUENZA(1) Never done Advanced Directives Completed: Have you ever planned for future healthcare decisions with a power of tax attorney, living will, or advance directives? No. Please bring a copy to your next appointment or email to Referrals: N/A Message Sent to Practice: NO Navigation Signature: Dirk Mendes Population Health Navigator April 04, 2021 9:15 AM [facility] Summary Purpose Family History No Family History Records FoundNo Family History Records Found Advance Directives No Advanced Directives Records FoundNo Advanced Directives Records Found Additional Source Comments (unrecognized sect ion and content) No Status Records FoundNo Status Records Found INFORMATION SOURCE (unrecogn ized section and content) DATE CREATED AUTHOR 09/05/2019 [facility] DATE CREATED AUTHOR AUTHOR'S ORGANIZ ATION 07/16/2021 [facility] FOR RECORDS PERTAINING TO PATIENTS WHO ARE OR HAVE BEEN ENROLLED IN A CHEMICAL DEPENDENCY/SUBSTANCEABUSE PROGRAM, SOME INFORMATION MAY BE OMITTED. This clinical summary was aggregated from multiple sources. Caution should be exercised in using it in the provision of clinical care. This summary normalizes information from multiple sources, and as a consequence, information in this document may materially change the coding, format and clinical context of patient data. In addition, data may be omitted in some cases. CLINICAL DECISIONS SHOULD BE BASED ON THE PRIMARY CLINICAL RECORDS. [employer] provides no warranty or guarantee of the accuracy or completeness of information in this document.
--- NOTE | 2025-03-17 13:08 | CT_ITS ---
PROCEDURE: STROKE CTA HEAD AND NECK W/CON 03/17/2025 REASON FOR EXAM: NEURO DEFICIT, ACUTE, STROKE SUSPECTED TECHNIQUE: Procedure Code: [id number].ST.HN Modality: CT Procedure: STROKE CTA HEAD AND NECK W/CON Multiplanar Sagittal and Coronal images were obtained. CONTRAST: Isovue 370 VOLUME: 100 mL One or more dose reduction techniques were used (e.g., Automated exposure control, adjustment of the mA and/or kV according to patient size, use of iterative reconstruction technique). RADIATION DOSE SUMMARY: CTDlvol: 19.70 754.35 mGy DLP: 754.35 mGycm COMPARISON: None FINDINGS: Aortic Arch: Early bifurcation of brachiocephalic artery. Left common carotid artery arises from brachiocephalic artery. Brachiocephalic and Subclavians: Patent. Origin of left subclavian artery is mildly tortuous. RIGHT Carotid: Right CCA: Unremarkable. Right ICA: Unremarkable. No significant luminal stenosis. Right ECA: Unremarkable. LEFT Carotid: Left CCA: Unremarkable. Left ICA: Unremarkable. No significant luminal stenosis. Left ECA: Unremarkable. Vertebrals: Hypoplastic left vertebral artery. RIGHT Vertebral: Patent. Enters vertebral foramen at C6. LEFT Vertebral: Patent. Enters vertebral foramen at C4. Anatomy: [place] anatomy is normal. Posterior cerebral arteries arise from posterior communicating arteries bilaterally. Aneurysm or avm: No intracranial aneurysms or large vascular malformations are identified. Anterior cerebral arteries: Unremarkable: Middle cerebral arteries: Unremarkable. Basilar artery: Small caliber but patent. Posterior cerebral arteries: Patent Other major branches of the posterior circulation: Unremarkable. Major venous structures: Unremarkable. Other findings: Neck: Dental caries, radicular cysts in mandible and maxilla. No prevertebral soft tissue swelling. CT/STROKE CTA Head AND Neck W/Con IMPRESSION: 1. There is no significant arterial stenosis or aneurysm in the head and neck v ascular structures. Reading Location: [id number]
[2025-03-17 13:13] LABS: Hematocrit 43.0 % (40-54); Hemoglobin 14.6 g/dL (13.0-16.5); Immature Granulocytes Count 0.030 X10^3/uL (0.0-0.0); Mean Corp Hgb Conc 34.0 g/dL (32-36); Mean Corpuscular Volume 94.3 fL (80-94); Mean Platelet Vol. 11.4 fl (6.2-12.0); NRBC Flagged by Analyzer 0 % (0-5); Platelet Count 189 K/mm3 (150-450); RBC Distribution Width CV 13.4 % (11.6-14.6); RBC Distribution Width SD 46.5 fl (35.1-43.9); Red Blood Count 4.56 M/mm3 (4.6-6.2); White Blood Count 8.5 K/mm3 (4.4-11.0)
[2025-03-17 13:22] LABS: Prothrombin Time (Protime)PT. 13.4 SECONDS (11.7-14.9)
[2025-03-17 13:23] LABS: Partial Thromboplast Time 24.5 Seconds (24.1-36.2)
[2025-03-17 13:41] LABS: Anion Gap 11 (5-15); BUN 17 mg/dL (4-19); BUN/Creat Ratio 20.6 RATIO (10-20); Calcium,Total 9.1 mg/dL (7.6-11.0); Carbon Dioxide 23.1 mmol/L (21.0-32.0); Chloride 104 mmol/L (98-108); Estimated Creatinine Clearance 94.63 ml/min (50-250); Glucose 134 mg/dL (70-99); Potassium 4.1 mmol/L (3.3-5.1); Troponin T High Sensitivity < 6 ng/L (<=22)
[2025-03-17] MEDS: 0.9% Saline Lock 10 ML Syringe IV ×2 (13:41→13:43)
[2025-03-17] MEDS: Tenecteplase 25 MG in Syringe 1 EACH 3,600 MG IV (13:42)
[2025-03-17] MEDS: 0.9% Normal Saline (1000mL) 1,000 ML 100 ML IV (13:44)
--- NOTE | 2025-03-17 13:57 | PCM.HP.STD ---
HPI - General General Date of Admission: 03/17/25 Date of Service: 03/17/25 Chief Complaint: Dizziness and left-sided weakness with numbness/tingling HPI Narrative MELYSSA GALE, is a 65 M who presented to [facility] ED on 03/17/2025 with dizziness and left-sided weakness with numbness/tingling. Patient has minimal past medical history. 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 He is on no medications at home. Patient does report a history of multiple sclerosis diagnosed back in 1991. He was on medication for this for about 1 year and then self discontinued, and he has not seen any doctors for this since then. He does not follow with a doctor regularly. Patient has just returned home today from drive the [employer] and when he stepped out of his car, he became very dizzy and ataxic and also noted left-sided weakness with numbness/tingling. He felt like he was going to fall over but he was able to steady himself and sit down. EMS then brought him in for further evaluation. In the ED he was noted to have an NIHSS score of 5 and had significant nystagmus noted on exam. CT brain and CT head/neck were unremarkable. Mildly hypertensive to the 150 systolic. ED physician discussed with [facility] teleneurology and patient was agreeable to TNK administration. TNK was given at 1330. Hospitalist was then contacted for admission. I saw the patient at bedside in the ED. Patient was sitting back comfortably in bed, conversing normally, in no acute distress. On neuro exam he did continue to have nystagmus noted, and his left leg was mildly weaker than his right with sensation changes noted. Patient denies any history of symptoms like this before. He does use chewing tobacco on a regular basis. Denies any alcohol or recreational drug use. No other acute concerns currently. Will be admitted for further management. [facility] Medical History (Updated 03/17/25 @ 14:[address] Cheikh Galdamez, DO) Multiple sclerosis Home Medications ?Medication ?Instructions ?Recorded ?Last Taken ?Type NK 03/17/25 Unknown History Allergy/AdvReac Type Severity Reaction Status Date / Time Penicillins (PCN) Allergy Rash Verified 03/17/25 12:43 Surgical History Hx of cholecystectomy Social History Smoking Status: Never smoker ROS Constitutional Constitutional: Denies chills, fatigue or fever(s) Eyes Eyes: Reports change in vision Cardiovascular Cardiovascular: Denies chest pain Respiratory/Chest Respiratory/Chest: Denies shortness of breath at rest Gastrointestinal Gastrointestinal: Denies abdominal pain Genitourinary Genitourinary: Denies dysuria Musculoskeletal Musculoskeletal: Denies arthralgias or myalgias Neurologic Neurologic: Reports abnormal gait, disequilibrium, dizziness, focal weakness, numbness and tingling; Denies abnormal speech, confusion or headache(s) Vital Signs Vital Signs Vital Signs: 03/17/25 12:43 03/17/25 12:45 03/17/25 12:58 Temperature 97.4 F L Temperature Source Oral Pulse Rate 71 70 Respiratory Rate 16 17 Blood Pressure 151/79 H 151/79 H Blood Pressure Mean 103 103 Blood Pressure Source Blood Pressure Position Blood Pressure Location Pulse Ox 97 96 Oxygen Delivery Method Room Air Room Air Room Air 03/17/25 12:58 03/17/25 13:31 03/17/25 13:42 Temperature 97.5 F L 97.7 F L Temperature Source Oral Oral Pulse Rate 75 73 Respiratory Rate 24 H 21 H Blood Pressure 99/87 H 154/86 H 150/92 H Blood Pressure Mean 91 108 Blood Pressure Source Monitor Blood Pressure Position Semi-Fowlers Blood Pressure Location Right Arm Pulse Ox 98 95 Oxygen Delivery Method Room Air Room Air Weight Weight: 101.106 kg Body Mass Index (BMI) 37.0 Physical Exam Const alert, oriented x3 and no apparent distress Constitutional Narrative: Pleasant upper middle-age male, class II obesity, sitting back comfortably in bed, conversing normally, in no acute distress. General Appearance: cooperative and comfortable HEENT normocephalic, head/scalp atraumatic, hearing grossly normal bilaterally, nasal mucous membranes and turbinates normal and moist oral mucous membranes Eyes PERRL, EOMs intact bilaterally and conjunctivae normal Eyes Narrative: Nystagmus noted on neuro exam as below. Neck full ROM Chest inspection of chest normal Resp normal respiratory effort, normal air movement, no use of accessory muscles and clear to auscultation bilaterally Cardio regular rate, regular rhythm, no murmurs and peripheral pulses 2+ throughout GI normal to inspection, nondistended, normoactive bowel sounds, soft to palpation, non-tender and non-distended Back/Spine normal ROM Extremity normal to inspection, full ROM and no pedal edema Skin no rashes or lesions noted Neuro oriented x3 and moves all extremities Neuro Narrative: Nystagmus with right gaze deviation noted. +4/5 strength in left lower extremity and left leg sensation change noted per patient. Coordination / Balance: [id number] test normal Speech: speech normal Psych mental status grossly normal Results Lab / Micro Data 03/17/25 13:10 03/17/25 13:10 Labs: Laboratory Results - last 24 hr 03/17/25 13:10: WBC 8.5, RBC 4.56 L, Hgb 14.6, Hct 43.0, MCV 94.3 H, MCH 32.0, MCHC 34.0, RDW Std Deviation 46.5 H, RDW Coeff of Jason 13.4, Plt Count 189, MPV 11.4, Immature Gran % (Auto) 0.400, Neut % (Auto) 60.9, Lymph % (Auto) 24.1, [place] % (Auto) 11.4 H, Eos % (Auto) 2.1, Baso % (Auto) 1.1 H, Absolute Neuts (auto) 5.2, Absolute Lymphs (auto) 2.06, Nucleated RBC % 0, PT 13.4, INR 1.0, APTT 24.5, Sodium 138, Potassium 4.1, Chloride 104, Carbon Dioxide 23.1, Anion Gap 11, BUN 17, Creatinine 0.84, Estim Creat Clear Calc 94.63, Est GFR (MDRD) Non-Af 96, BUN/Creatinine Ratio 20.6 H, Glucose 134 H, Calcium 9.1, Troponin T High Sens < 6 Imaging Radiology Impression Brain CT 03/17/25 12:58 IMPRESSION: No acute intracranial abnormalities. Reading Location: [id number] Head/Neck CTA 03/17/25 13:08 IMPRESSION: 1. There is no significant arterial stenosis or aneurysm in the head and neck vascular structures. Reading Location: [id number] Assessment & Plan Assessment/Plan (1) Stroke-like symptoms: PLAN: Plan Patient is a 65-year-old male who presented to [facility] ED on 03/17/2025 with dizziness and left-sided weakness with numbness/tingling. 1. Strokelike symptoms s/p TNK administration ? Admit under inpatient status to ICU. Neurology consulted. Presented with acute onset dizziness and left-sided weakness with numbness/tingling. NIHSS score of [address] brain and CTA head/neck unremarkable. S/p TNK administration at 1330 on 03/17. Orders placed per stroke protocol order set. Lipid panel, A1c and TSH ordered. PT/OT/case management consulted. Repeat imaging to be done at 24 hours after TNK administration. Echo ordered. Bed rest for 24 hours. Cardiac monitoring in place. Monitor closely. 2. Reported history of MS ? Patient reports history of MS diagnosis back in 1991. States he was on medication for this for about 1 year then self discontinued and has not seen a doctor for this since then. Denies any MS related symptoms in many years and reports good functional status at baseline. Very low concern for MS flare leading to symptoms as above, okay for MRI brain without contrast only. No further inpatient needs for this, recommend outpatient follow-up. 3. Tobacco dependence ? Uses chewing tobacco on a daily basis. Denied need for nicotine replacement therapy while inpatient. Discussed cessation of discharge. 4. Class II obesity ? BMI 37 on admit. Complicates hospital course and care. Encouraged lifestyle modifications. DVT prophylaxis: SCDs CODE STATUS: Full code, verified Expected disposition: Home, TBD Total clinical time spent by myself addressing the patient's medical issues, reviewing all the data, and collaborating with patient's care team: 62 minutes. Charges/Coding Visit Charges Inpatient E&M: 35336 Init Hosp L2
--- NOTE | 2025-03-17 14:15 | RAD_ITS ---
PROCEDURE: CHEST 1 VIEW 03/17/2025 REASON FOR EXAM: NEURO DEFICIT, ACUTE, STROKE SUSPECTED TECHNIQUE: Frontal view of the chest. COMPARISON: None FINDINGS: Mild cardiomegaly. Suboptimal inspiratory effort. No consolidation in either lung. Hazy opacity at the left lung base. RAD/Chest 1 View IMPRESSION: 1. Possible atelectasis at the left lung base. Reading Location: [id number]
--- NOTE | 2025-03-17 15:27 | ECHOCS_ITS ---
Reason For Study Reason For Study: TIA/CVA Procedure This was a 2D Doppler, Color Flow transthoracic echocardiogram. The study was technically difficult. Patient unable to stand pressure of probe and had a difficult time holding thier breath. Contrast injection was performed. Exam performed portable in ICU/CCU. Left Ventricle Normal size and thickness. The left ventricular ejection fraction is 65 %. Normal diastology for age. Right Ventricle Normal right ventricle. Atria The left atrium is mildly enlarged. Normal right atrium. Mitral Valve Trivial mitral valve insufficiency. Tricuspid Valve Normal tricuspid valve. Aortic Valve Trisinus/trileaflet aortic valve. Pulmonic Valve The pulmonic valve is not well visualized. Great Vessels Normal sized aortic root. Pericardium/Pleural Trivial pericardial effusion. Medication Diluted definity 2ml given slow IV push to enhance endocardial definition. MMode/2D Measurements & Calculations LVIDd: 4.6 cm IVSd: 1.1 cm LVOT diam: 2.0 cm LVIDs: 3.0 cm LVPWd: 0.90 cm RVDd: 3.6 cm FS: 33.9 % LVOT area: 3.1 cm2 LA dimension: 4.4 cm asc Aorta Diam: 3.4 cm LAV(MOD- bp): 26.8 ml LAV(MOD- bp) Indexed: 13.0 ml/m2 LAV(MOD- sp2): 26.1 ml LAV(MOD- sp4): 27.1 ml SV(MOD- sp4): 39.9 ml LVAd ap4: 21.4 cm2 LVAd ap2: 21.6 cm2 LVLd ap4: 6.3 cm LVLd ap2: 6.5 cm SI(MOD- sp4): 19.4 ml/m2 EDV(MOD-sp4): 58.1 ml EDV(MOD-sp2): 59.5 ml EDV(sp4-el): 61.3 ml EDV(sp2-el): 61.4 ml LVAs ap4: 10.6 cm2 LVAs ap2: 10.7 cm2 LVLs ap4: 5.1 cm LVLs ap2: 4.5 cm ESV(MOD-sp4): 18.2 ml ESV(MOD-sp2): 20.6 ml ESV(sp4-el): 18.8 ml ESV(sp2-el): 21.6 ml EF(MOD-sp4): 68.7 % EF(MOD-sp2): 65.4 % EF(sp4-el): 69.3 % SV(MOD-sp2): 38.9 ml SV(sp4-el): 42.5 ml Ao sinus diam: 3.3 cm SI(MOD-sp2): 18.9 ml/m2 Ao ST Junction: 2.9 cm LA dimension(2D): 3.8 cm LA A4 area: 13.3 cm2 RA A4 area: 9.3 cm2 TAPSE: 1.9 cm Time Measurements MV dec time: 0.17 sec Doppler Measurements & Calculations MV E max kevon: 61.3 cm/sec Lat Peak E' Kevon: 8.9 cm/sec Med Peak E' Kevon: 9.2 cm/sec MV A max kevon: 81.4 cm/sec E/E' lat: 6.9 E/E' med: 6.7 MV E/A: 0.75 Ao V2 max: 119.9 cm/sec LV V1 max: 101.2 cm/sec MV dec slope: 356.9 cm/sec2 Ao max P.7 mmHg LV V1 max P.1 mmHg Ao V2 mean: 92.0 cm/sec LV V1 mean P.1 mmHg Ao mean P.6 mmHg LV V1 mean: 66.3 cm/sec Ao V2 VTI: 24.7 cm LV V1 VTI: 20.2 cm AV (velocity ratio): 0.82 PADMA(I,D): 2.6 cm2 PADMA(V,D): 2.6 cm2 SV(LVOT): 63.0 ml PA V2 max: 95.4 cm/sec ECHO/Echo Complete W/ Contrast Interpretation Summary The study was technically difficult. The left ventricular ejection fraction is 65 %. The left atrium is mildly enlarged. Trivial pericardial effusion. Ordering Physician: Cheikh Galdamez Performed By: Nya Russell RDCS
--- NOTE | 2025-03-17 15:28 | EDS_ITS ---
HPI History of Present Illness Chief Complaint: Dizziness Informant: patient Onset/Context/Timing Onset: Today Associated Symptoms Associated Symptoms: Positive for Nausea Narrative Narrative: This is a 65-year-old male with a history of MS who presents to the emergency department primarily for dizziness. Patient had acute onset of dizziness around noon today. The patient states he had gone with close friends furniture shopping. He was fine walking around the stores. He had gotten into a band to go home and when he stepped out of the van he all of a sudden felt very dizzy. Patient had some associated nausea as well. Patient brought to the ED. Patient states that he has not had any falls or head injuries. He has no headache. He states that he has no blurred vision. No difficulty speaking or swallowing. Initially, he did not think he had any weakness in his arms or legs. No chest pain or shortness of breath. No recent infectious respiratory symptoms. No fevers or chills. No urinary symptoms. No GI losses with vomiting or diarrhea. No prior history of vertigo. He is not anticoagulated. He is not a diabetic. Glucose was normal in the 130s. Patient did eat this morning. He has not had any ear pain. No recent travel, immobility, or surgery. No prior history of any head bleed or GI bleed. [facility] Medical History Multiple sclerosis Home Medications ?Medication ?Instructions ?Recorded ?Last Taken ?Type NK 03/17/25 Unknown History Allergy/AdvReac Type Severity Reaction Status Date / Time Penicillins (PCN) Allergy Rash Verified 03/17/25 12:43 Surgical History Hx of cholecystectomy Social History Smoking Status: Never smoker ROS ROS ED Constitutional Constitutional ED: Reports as per HPI; Denies chills, fever(s) or headache(s) Eyes Eyes: Denies blurry vision or diplopia Cardiovascular Cardiovascular: Denies chest pain or dyspnea Respiratory/Chest Respiratory/Chest: Denies dyspnea Gastrointestinal Gastrointestinal: Denies diarrhea, nausea or vomiting Genitourinary Genitourinary ED: Denies burning urination or flank pain Musculoskeletal Musculoskeletal: Denies arthralgias or myalgias Integumentary Denies rash Neurologic Neurologic: Reports other Details: dizziness ; Denies headache(s), paresthesias or weakness Psychiatric Psychiatric: Reports none Hematologic/Lymphatic Hematologic/Lymphatic: Reports none Allergic/Immunologic Allergic/Immunologic ED: Reports none EXAM Physical Exam Const Vital Signs: 03/17/25 12:43 03/17/25 12:45 03/17/25 12:58 Temperature 97.4 F L Temperature Source Oral Pulse Rate 71 70 Respiratory Rate 16 17 Blood Pressure 151/79 H 151/79 H Blood Pressure Mean 103 103 Blood Pressure Source Blood Pressure Position Blood Pressure Location Pulse Ox 97 96 Oxygen Delivery Method Room Air Room Air Room Air 03/17/25 12:58 03/17/25 13:31 03/17/25 13:42 Temperature 97.5 F L 97.7 F L Temperature Source Oral Oral Pulse Rate 75 73 Respiratory Rate 24 H 21 H Blood Pressure 99/87 H 154/86 H 150/92 H Blood Pressure Mean 91 108 Blood Pressure Source Monitor Blood Pressure Position Semi-Fowlers Blood Pressure Location Right Arm Pulse Ox 98 95 Oxygen Delivery Method Room Air Room Air 03/17/25 13:46 Temperature Temperature Source Pulse Rate 77 Respiratory Rate 19 H Blood Pressure 113/92 H Blood Pressure Mean 99 Blood Pressure Source Monitor Blood Pressure Position Semi-Fowlers Blood Pressure Location Right Arm Pulse Ox 96 Oxygen Delivery Method Room Air Positive well nourished, well developed and oriented x3 Constitutional Narrative: Appears unwell General Appearance ED: active, cooperative and well developed Orientation / Consciousness: awake and oriented to person Exam Limitations: no limitations Nutritional Appearance: Negative for overweight HEENT Reports normocephalic, head/scalp atraumatic, moist mucous membranes, nasal mucous membranes and turbinates normal and oropharynx normal normocephalic, normal to inspection and atraumatic Face and Sinus: normal facial exam Nose: external nose normal and nares normal Mouth ED: Yes oral and palatal mucosa normal, Yes lips normal and Yes tongue normal Mouth: oral and palatal mucosa normal, lips normal and tongue normal Throat: posterior oropharynx normal Eyes PERRL and conjunctivae normal Eyes Narrative: Horizontal nystagmus to the right. Patient can look right and midline by eye movements do not cross to the left General Eye ED: Yes normal appearance of both eyes Visual Acuity: acuity normal Eyelid: eyelids normal Conjunctiva: conjunctiva normal Sclera: sclera normal Cornea: cornea normal Pupil: PERRL and accommodation reflex normal Neck full ROM Lymph Lymphatic: no lymphadenopathy noted Chest Wall inspection of chest normal Chest: abnormal inspection of the chest Resp normal respiratory effort and normal air movement Effort and Inspection: able to speak in complete sentences and symmetric chest movement Auscultation: clear to auscultation bilaterally Cardio regular rate and regular rhythm Rate: regular rate Peripheral Pulses: pulses 2+ throughout GI normal to inspection, nondistended, normoactive bowel sounds Rectal Exam: deferred Back/Spine normal ROM and normal to inspection Cervical Spine: cervical ROM normal Extremity normal to inspection, full ROM and normal capillary refill Neuro oriented x3 and moves all extremities Neuro Narrative: NIH stroke scale of 5. Left lower leg droop. Left-sided sensation deficits. Left-sided neglect. Left-sided visual field deficits. Sensorium / Orientation: awake and alert Motor Exam: strength 5/5 throughout Psych mental status grossly normal Appearance: grossly normal and appropriate Speech: normal speech Skin no rashes or lesions noted [facility]DM [facility] History & Record Review Discussion w/independent historian: Patient and Family Lab Data Attestation: I reviewed the patient's lab results. Lab results narrative: Lab work reviewed. No leukocytosis or anemia. Electrolytes within normal range. Renal function preserved. Troponin is not elevated. Labs: Laboratory Results - last 24 hr 03/17/25 13:10 WBC 8.5 RBC 4.56 L Hgb 14.6 Hct 43.0 MCV 94.3 H MCH 32.0 MCHC 34.0 RDW Std Deviation 46.5 H RDW Coeff of Jason 13.4 Plt Count 189 MPV 11.4 Immature Gran % (Auto) 0.400 Neut % (Auto) 60.9 Lymph % (Auto) 24.1 Morehouse % (Auto) 11.4 H Eos % (Auto) 2.1 Baso % (Auto) 1.1 H Absolute Neuts (auto) 5.2 Absolute Lymphs (auto) 2.06 Nucleated RBC % 0 PT 13.4 INR 1.0 APTT 24.5 Sodium 138 Potassium 4.1 Chloride 104 Carbon Dioxide 23.1 Anion Gap 11 BUN 17 Creatinine 0.84 Estim Creat Clear Calc 94.63 Est GFR (MDRD) Non-Af 96 BUN/Creatinine Ratio 20.6 H Glucose 134 H Calcium 9.1 Troponin T High Sens < 6 Radiography Chest X-Ray - ED: 1 View and - (I personally reviewed the patient's chest x-ray which shows no obvious infiltrates or pneumothorax. No consolidation or pneumonia. No pleural effusion or pulmonary edema.) Diagnostic Testing: Clinical Impression(s) from Imaging Studies Brain CT 03/17/25 12:58 IMPRESSION: No acute intracranial abnormalities. Reading Location: [id number] Head/Neck CTA 03/17/25 13:08 IMPRESSION: 1. There is no significant arterial stenosis or aneurysm in the head and neck vascular structures. Reading Location: [facility] Management Discussion w/another healthcare provider: Hospitalist and Nursing Educator Treatment and Re-Evaluation Narrative: 65-year-old male who presents to the emergency department for dizziness. He was also found to have other focal neurologic deficits including left-sided decree sensation, left-sided neglect, left-sided visual field deficits left lower leg droop and heaviness. Stroke alert was called as the patient was in a therapeutic time window since onset of symptoms. CT brain and CTA head and neck were performed. CT brain was negative. CTA head and neck also showed no evidence of an LVO. I spoke with Dr. Ross from neurology [facility] and we had a discussion over the phone about the patient. He had no contraindications to tenecteplase. The decision was made that he was a tenecteplase candidate. Risks and benefits were discussed with the patient and he provided both written and verbal consent to receiving thrombolytic therapy. Following TNK administration patient's dizziness and nystagmus improved. He does continue to have difficulty with abnormal is to the left with some neglect and heaviness of the left side. No worsening symptoms. He does feel some improvement. Ultimately, as the patient does not require any further neurologic intervention such as thrombectomy, he will be admitted to this hospital to the ICU for close monitoring and continued management. I spoke with Dr. Galdamez for admission. Critical Care Time Critical Care Time: Yes Critical care time (excluding procedures): 30-74 minutes Discharge Plan Triage Chief Complaint: Dizziness ED Provider: Itzel Trevino Dx/Rx/DC Orders Primary Care Provider: Care Physician,No Primary NIHSS NIHSS 1a. Level of Consciousness: 0 - Alert; keenly responsive 1b. LOC Questions: 0 - Answers BOTH questions correctly 1c. LOC Commands: 0 - Performs BOTH tasks correctly 2. Best Gaze: 1 - Partial gaze palsy; 3. Visual: 1 - Partial hemianopia 4. Facial Palsy: 0 - Normal symmetrical movements 5a. Left Arm: 0 - No drift; arm holds 90 (or 45) degrees for full 10 seconds 5b. Right Arm: 0 - No drift; arm holds 90 (or 45) degrees for full 10 seconds 6a. Left Le - Drift; leg falls by the end of 5-seconds, but does not hit bed 6b. Right Le - No drift; leg holds 30-degree position for full 5 seconds 7. Limb Ataxia: 0 - Absent 8. Sensory: 1 - [id number] sensory loss; 9. Best Language: 0 - No aphasia; normal 10. Dysarthria: 0 - Normal 11. Extinction and Inattention: 1 - Visual, tactile, auditory, spatial, or personal inattention; Total: 5 Stroke Questions Stroke Team Activated: Yes Reviewed Inclusion/Exclusion criteria: Yes IV Thrombolytic Administered: Yes No contraindications from thrombolytic administration: Yes Informed the patient and/or family of all associated risks, benefits, & alternatives to IV Thrombolytic Therapy. Patient and/or family voluntarily consent to the administration of IV Thrombolytic Therapy: Yes
--- NOTE | 2025-03-17 16:04 | CON.PCM.CC_ITS ---
HPI Consult Data Date of Consult: 03/17/25 HPI Narrative HPI Narrative: MELYSSA GALE, is a 65 M who presents [ ] [facility], [facility]–1983 Medical History Multiple sclerosis Home Medications ?Medication ?Instructions ?Recorded ?Last Taken ?Type NK 03/17/25 Unknown History Allergy/AdvReac Type Severity Reaction Status Date / Time Penicillins (PCN) Allergy Rash Verified 03/17/25 12:43 Surgical History Hx of cholecystectomy Social History Smoking Status: Never smoker Objective Data Objective Data Vital Signs: Vital Signs Last response 3 Temperature 36.6 C 03/17/25 14:29 Temperature Source Oral 03/17/25 13:31 Pulse Rate 70 03/17/25 14:46 Respiratory Rate 16 03/17/25 14:46 Blood Pressure 168/86 H 03/17/25 14:46 Blood Pressure Mean 113 03/17/25 14:46 Blood Pressure Source Monitor 03/17/25 14:46 Blood Pressure Position Semi-Fowlers 03/17/25 14:46 Blood Pressure Location Left Arm 03/17/25 14:46 Pulse Ox 98 03/17/25 14:46 Oxygen Delivery Method Room Air 03/17/25 14:46 Current Meds Ordered / Administered: Current meds ordered / Administered 3 Generic Name Dose Route Start Last Admin Trade Name Freq PRN Reason Stop Dose Admin Acetaminophen 650 mg 03/17/25 13:30 Acetaminophen 325 Mg Tablet PO X1 PRN Temp > 99.6 F Acetaminophen 650 mg 03/17/25 15:27 Acetaminophen 325 Mg Tablet PO Q6H PRN PRN Pain 1-10 Or Fever>100.7 Atorvastatin Calcium 40 mg 03/17/25 22:00 Atorvastatin Calcium 40 Mg Tablet PO QHS MARIO Sodium Chloride 1,000 mls @ 100 mls/hr 03/17/25 13:30 03/17/25 13:44 IV 100 mls/hr .Q10H MARIO Administration Nicardipine/Sodium Chloride 20 mg in 200 mls @ 50 mls/hr 03/17/25 15:27 Cardene-Aakash 20 Mg/200 Ml Soln CONT INF 03/18/25 15:27 Q4H MARIO Protocol 5 MG/HR Labetalol HCl 20 mg 03/17/25 12:58 Labetalol 20 Mg/4 Ml Vial IV 03/18/25 12:58 X1 PRN BLOOD PRESSURE Melatonin 3 mg 03/17/25 15:27 Melatonin 3 Mg Tablet PO QHS PRN PRN INSOMNIA Ondansetron HCl 4 mg 03/17/25 15:27 Ondansetron 4 Mg/2 Ml Vial IV Q8H PRN PRN NAUSEA/VOMITING Sodium Chloride 10 - 40 ml 03/17/25 15:42 0.9% Saline Lock 10 Ml Syringe IV UD PRN SALINE FLUSH Lab / Micro Data 03/17/25 13:10 03/17/25 13:10 Labs: Laboratory Results - last 24 hr 03/17/25 13:10: WBC 8.5, RBC 4.56 L, Hgb 14.6, Hct 43.0, MCV 94.3 H, MCH 32.0, MCHC 34.0, RDW Std Deviation 46.5 H, RDW Coeff of Jason 13.4, Plt Count 189, MPV 11.4, Immature Gran % (Auto) 0.400, Neut % (Auto) 60.9, Lymph % (Auto) 24.1, M rachel % (Auto) 11.4 H, Eos % (Auto) 2.1, Baso % (Auto) 1.1 H, Absolute Neuts (auto) 5.2, Absolute Lymphs (auto) 2.06, Nucleated RBC % 0, PT 13.4, INR 1.0, APTT 24.5, Sodium 138, Potassium 4.1, Chloride 104, Carbon Dioxide 23.1, Anion Gap 11, BUN 17, Creatinine 0.84, Estim Creat Clear Calc 94.63, Est GFR (MDRD) Non-Af 96, BUN/Creatinine Ratio 20.6 H, Glucose 134 H, Calcium 9.1, Troponin T High Sens < 6 03/17/25 14:00: Hemoglobin A1c 5.9 H, TSH 1.390 Imaging Radiology Impression Brain CT 03/17/25 12:58 IMPRESSION: No acute intracranial abnormalities. Reading Location: [id number] Head/Neck CTA 03/17/25 13:08 IMPRESSION: 1. There is no significant arterial stenosis or aneurysm in the head and neck vascular structures. Reading Location: [facility] Chest X-Ray 03/17/25 14:15 IMPRESSION: 1. Possible atelectasis at the left lung base. Reading Location: [id number] Assessment and Plan . Assessment and plan: Chart and data reviewed No critical care issues We are available as needed for any acute problems or decompensation.
--- NOTE | 2025-03-17 18:32 | CT_ITS ---
EXAM: BRAIN/HEAD WITHOUT CONTRAST CLINICAL HISTORY: 65 y/o M with NEW SYMPTOMS S/P TNK INFUSION. COMPARISON: Reviewed. TECHNIQUE: Routine CT imaging of the head without IV contrast. Additional multiplanar reformats were obtained. Dose reduction techniques were used including intermediate exposure control (AEC),iterative reconstruction technique, and/or mA and/or KV dose adjustments based on patient's size. FINDINGS: The ventricles, sulci and cisterns are mildly prominent, suggestive of brain parenchymal volume loss. There is no evidence of intracranial hemorrhage. There is no midline shift, mass effect, or extra-axial collection. The matthews and white matter differentiation in the bilateral cerebral hemispheres is maintained, refuting an acute, large territorial infarct. There are mild, diffuse, symmetrical, periventricular and subcortical white matter lucencies, a nonspecific finding, which may represent sequela of small vessel disease in a patient of this age. The orbits, visualized paranasal sinuses and mastoids are unremarkable. No depressed skull fractures are identified. CT/Brain/Head without Contrast IMPRESSION: No intracranial hemorrhage or large territorial infarct. Microangiopathic disease hinders exclusion of a small acute infarct; CTP (CT Pe rfusion scan) or MRI with diffusion weighted imaging would provide further detail of the parenchyma should additional inform ation be required. Reading Location[facility]
[2025-03-18] VITALS (26 sets, daily range): BP systolic 125–163; BP diastolic 66–113; PULSE 59–88; RESP 17–24; TEMP 36–36.4; O2SAT 94–97; BMI 36.7
[2025-03-18] MEDS: 0.9% Saline Lock 10 ML Syringe IV ×2 (00:07→08:12)
--- NOTE | 2025-03-18 03:15 | NURSING ---
Morning labs were attempted to be drawn off PIV unsuccessfully. Pt was transferred to ICU with only one IV post TNK administration in ED. Pt still within 24H post TNK administration not allowing for venipucture or new IV placement.
--- NOTE | 2025-03-18 10:11 | STROKE.CONS ---
Assessment and Plan: Stroke Assessment/Plan MELYSSA GALE is a year old right handed male with a history of MS (diagnosed in 1991, self-discontinued MS meds after 1 year and didnt see doctor after that) who on 03/17/25 at 12p developed left sided weakness/numbness. He presented to [facility] where ER gave him NIHSS 5. CT brain negative. CTA head/neck negative. Telestroke phone consult recommended IV TNK which was given at 1330. [address] brain negative. Neurological examination shows gaze palsy (unabel to look to left), and left arm weakness/numbness, NIHSS 4 (EOMI-2, LUE-1, sens-1). ASSESSMENT/PLAN: Suspected acute ischemic stroke (suspect right pontine lesion based on exam), s/p IV TNK (1hr 30min) post-stroke day #1 1) Stroke work-up recommended including MRI brain (with contrast given history of MS), TTE, LDL, PT/OT consults 2) Repeat 24 hr brain negative. Recommend starting daily Asa and lovenox SQ for DVT proph. 3) Continue vascular risk factor modification. On lipitor. 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 He presented to [facility] where ER gave him NIHSS 5. CT brain negative. CTA head/neck negative. Telestroke phone consult recommended IV TNK which was given at 1330. He was admitted. [address] brain negative. This AM he still has symptoms and he also notes painful muscle cramps when he activates the left arm or leg. 125/70. On lipitor. [facility] Medical History Multiple sclerosis Home Medications ?Medication ?Instructions ?Recorded ?Last Taken ?Type NK 03/17/25 Unknown History Allergy/AdvReac Type Severity Reaction Status Date / Time Penicillins (PCN) Allergy Rash Verified 03/17/25 12:43 Surgical History Hx of cholecystectomy Social History Smoking Status: Never smoker Vital Signs Vital Signs Vital Signs: 03/17/25 12:43 03/17/25 12:45 03/17/25 12:58 Temperature 97.4 F L Temperature Source Oral Pulse Rate 71 70 Pulse Strength Respiratory Rate 16 17 Respiratory Effort Respiratory Depth Respiratory Pattern Blood Pressure 151/79 H 151/79 H Blood Pressure Mean 103 103 Blood Pressure Source Blood Pressure Position Blood Pressure Location Pulse Ox 97 96 Oxygen Delivery Method Room Air Room Air Room Air 03/17/25 12:58 03/17/25 13:31 03/17/25 13:42 Temperature 97.5 F L 97.7 F L Temperature Source Oral Oral Pulse Rate 75 73 Pulse Strength Respiratory Rate 24 H 21 H Respiratory Effort Respiratory Depth Respiratory Pattern Blood Pressure 99/87 H 154/86 H 150/92 H Blood Pressure Mean 91 108 Blood Pressure Source Monitor Blood Pressure Position Semi-Fowlers Blood Pressure Location Right Arm Pulse Ox 98 95 Oxygen Delivery Method Room Air Room Air 03/17/25 13:46 03/17/25 14:01 03/17/25 14:16 Temperature Temperature Source Pulse Rate 77 77 72 Pulse Strength Respiratory Rate 19 H 16 18 Respiratory Effort Respiratory Depth Respiratory Pattern Blood Pressure 113/92 H 150/108 H 155/82 H Blood Pressure Mean 99 122 106 Blood Pressure Source Monitor Monitor Monitor Blood Pressure Position Semi-Fowlers Semi-Fowlers Semi-Fowlers Blood Pressure Location Right Arm Left Arm Left Arm Pulse Ox 96 100 98 Oxygen Delivery Method Room Air Room Air Room Air 03/17/25 14:29 03/17/25 14:31 03/17/25 14:46 Temperature 97.9 F Temperature Source Pulse Rate 72 73 70 Pulse Strength Respiratory Rate 18 16 16 Respiratory Effort Respiratory Depth Respiratory Pattern Blood Pressure 155/82 H 150/77 H 168/86 H Blood Pressure Mean 106 101 113 Blood Pressure Source Monitor Monitor Blood Pressure Position Semi-Fowlers Semi-Fowlers Blood Pressure Location Left Arm Left Arm Pulse Ox 98 97 98 Oxygen Delivery Method Room Air Room Air 03/17/25 15:16 03/17/25 15:30 03/17/25 15:30 Temperature 97.2 F L Temperature Source Temporal Pulse Rate 72 69 69 Pulse Strength Respiratory Rate 19 H 19 H Respiratory Effort Normal Non-Labored Respiratory Depth Normal Respiratory Pattern Normal Blood Pressure 145/91 H 137/73 H Blood Pressure Mean 109 94 Blood Pressure Source Monitor Monitor Blood Pressure Position Supine Supine Blood Pressure Location Left Arm Left Arm Pulse Ox 98 98 Oxygen Delivery Method Room Air Room Air 03/17/25 15:31 03/17/25 15:45 03/17/25 15:46 Temperature Temperature Source Pulse Rate 69 79 79 Pulse Strength Respiratory Rate 19 H 20 H 20 H Respiratory Effort Respiratory Depth Respiratory Pattern Blood Pressure 137/73 H 142/90 H 142/90 H Blood Pressure Mean 94 107 107 Blood Pressure Source Monitor Monitor Monitor Blood Pressure Position Supine Supine Supine Blood Pressure Location Left Arm Left Arm Left Arm Pulse Ox 98 98 98 Oxygen Delivery Method Room Air Room Air Room Air 03/17/25 15:57 03/17/25 16:00 03/17/25 16:12 Temperature Temperature Source Pulse Rate 70 70 63 Pulse Strength Respiratory Rate 20 H 16 Respiratory Effort Respiratory Depth Respiratory Pattern Blood Pressure 143/76 H 113/52 L Blood Pressure Mean 98 72 Blood Pressure Source Monitor Monitor Blood Pressure Position Supine Supine Blood Pressure Location Left Arm Left Arm Pulse Ox 97 98 Oxygen Delivery Method Room Air Room Air 03/17/25 16:16 03/17/25 16:31 03/17/25 17:01 Temperature 97.0 F L Temperature Source Temporal Pulse Rate 70 65 68 Pulse Strength Respiratory Rate 20 H 22 H 18 Respiratory Effort Respiratory Depth Respiratory Pattern Blood Pressure 143/76 H 147/75 H 148/77 H Blood Pressure Mean 98 99 100 Blood Pressure Source Monitor Monitor Monitor Blood Pressure Position Supine Supine Supine Blood Pressure Location Left Arm Left Arm Left Arm Pulse Ox 97 96 97 Oxygen Delivery Method Room Air Room Air Room Air 03/17/25 17:31 03/17/25 18:01 03/17/25 18:31 Temperature 97.0 F L 96.8 F L Temperature Source Temporal Temporal Pulse Rate 64 70 70 Pulse Strength Respiratory Rate 19 H 18 25 H Respiratory Effort Respiratory Depth Respiratory Pattern Blood Pressure 147/70 H 145/76 H 146/91 H Blood Pressure Mean 95 99 109 Blood Pressure Source Monitor Monitor Monitor Blood Pressure Position Supine Supine Supine Blood Pressure Location Left Arm Left Arm Left Arm Pulse Ox 98 97 97 Oxygen Delivery Method Room Air Room Air Room Air 03/17/25 19:01 03/17/25 19:31 03/17/25 20:00 Temperature 97.2 F L Temperature Source Temporal Pulse Rate 70 70 74 Pulse Strength Respiratory Rate 19 H 20 H 20 H Respiratory Effort Normal Non-Labored Respiratory Depth Normal Respiratory Pattern Normal Blood Pressure 150/73 H 144/73 H Blood Pressure Mean 98 96 Blood Pressure Source Monitor Monitor Blood Pressure Position Supine Supine Blood Pressure Location Left Arm Left Arm Pulse Ox 96 96 95 Oxygen Delivery Method Room Air Room Air Room Air 03/17/25 20:00 03/17/25 20:01 03/17/25 20:31 Temperature 97.0 F L 97.0 F L Temperature Source Temporal Temporal Pulse Rate 73 72 73 Pulse Strength Respiratory Rate 20 H 23 H Respiratory Effort Respiratory Depth Respiratory Pattern Blood Pressure 123/71 H 132/69 H Blood Pressure Mean 88 90 Blood Pressure Source Monitor Monitor Blood Pressure Position Supine Supine Blood Pressure Location Left Arm Left Arm Pulse Ox 94 94 Oxygen Delivery Method Room Air Room Air 03/17/25 21:01 03/17/25 22:00 03/17/25 22:01 Temperature 96.9 F L 96.8 F L Temperature Source Temporal Temporal Pulse Rate 70 77 Pulse Strength Normal (2+) Respiratory Rate 23 H 22 H Respiratory Effort Respiratory Depth Respiratory Pattern Blood Pressure 127/61 H 124/67 H Blood Pressure Mean 83 86 Blood Pressure Source Monitor Monitor Blood Pressure Position Supine Supine Blood Pressure Location Left Arm Left Arm Pulse Ox 93 94 Oxygen Delivery Method Room Air Room Air 03/17/25 23:01 03/18/25 00:00 03/18/25 00:00 Temperature 96.7 F L Temperature Source Temporal Pulse Rate 62 74 61 Pulse Strength Respiratory Rate 21 H 19 H Respiratory Effort Normal Non-Labored Respiratory Depth Normal Respiratory Pattern Normal Blood Pressure 134/73 H Blood Pressure Mean 93 Blood Pressure Source Monitor Blood Pressure Position Supine Blood Pressure Location Left Arm Pulse Ox 94 95 Oxygen Delivery Method Room Air Room Air 03/18/25 00:01 03/18/25 01:01 03/18/25 02:01 Temperature 97.0 F L 97.0 F L 96.8 F L Temperature Source Temporal Temporal Temporal Pulse Rate 64 59 L 67 Pulse Strength Respiratory Rate 20 H 18 19 H Respiratory Effort Respiratory Depth Respiratory Pattern Blood Pressure 134/76 H 129/78 H 127/81 H Blood Pressure Mean 95 95 96 Blood Pressure Source Monitor Monitor Monitor Blood Pressure Position Supine Supine Supine Blood Pressure Location Left Arm Left Arm Left Arm Pulse Ox 94 96 95 Oxygen Delivery Method Room Air Room Air Room Air 03/18/25 03:01 03/18/25 03:56 03/18/25 04:00 Temperature 96.9 F L Temperature Source Temporal Pulse Rate 63 74 66 Pulse Strength Respiratory Rate 17 17 Respiratory Effort Normal Non-Labored Respiratory Depth Normal Respiratory Pattern Normal Blood Pressure 131/80 H Blood Pressure Mean 97 Blood Pressure Source Monitor Blood Pressure Position Supine Blood Pressure Location Left Arm Pulse Ox 94 94 Oxygen Delivery Method Room Air Room Air 03/18/25 04:01 03/18/25 05:01 03/18/25 06:01 Temperature 97.1 F L 97.3 F L 97.0 F L Temperature Source Temporal Temporal Temporal Pulse Rate 67 61 70 Pulse Strength Respiratory Rate 17 21 H 24 H Respiratory Effort Respiratory Depth Respiratory Pattern Blood Pressure 163/84 H 126/79 H 141/78 H Blood Pressure Mean 110 94 99 Blood Pressure Source Monitor Monitor Monitor Blood Pressure Position Supine Supine Supine Blood Pressure Location Left Arm Left Arm Left Arm Pulse Ox 94 96 96 Oxygen Delivery Method Room Air Room Air Room Air 03/18/25 07:01 03/18/25 07:34 03/18/25 07:34 Temperature Temperature Source Pulse Rate 67 69 69 Pulse Strength Respiratory Rate 21 H 18 Respiratory Effort Normal Non-Labored Respiratory Depth Normal Respiratory Pattern Normal Blood Pressure 130/66 H Blood Pressure Mean 87 Blood Pressure Source Monitor Blood Pressure Position Supine Blood Pressure Location Left Arm Pulse Ox 96 94 Oxygen Delivery Method Room Air Room Air 03/18/25 08:01 03/18/25 09:01 03/18/25 10:01 Temperature 96.9 F L Temperature Source Temporal Pulse Rate 79 70 70 Pulse Strength Respiratory Rate 17 23 H 22 H Respiratory Effort Respiratory Depth Respiratory Pattern Blood Pressure 142/71 H 125/70 H 133/68 H Blood Pressure Mean 94 88 89 Blood Pressure Source Monitor Monitor Monitor Blood Pressure Position Supine Supine Supine Blood Pressure Location Left Arm Left Arm Right Forearm Pulse Ox 94 96 96 Oxygen Delivery Method Room Air Room Air Room Air Weight Weight: 99.926 kg Body Mass Index (BMI) 36.7 Physical Exam Neuro Neuro Narrative: Neurological examination: General: The patient appears nutritionally appropriate, well-groomed, and appears comfortable in no acute distress. Mental Status: ?The patient?s mental status was normal including orientation. ?Language was intact. ?Cranial nerves: ?Patient unable to gaze left (horizontal gaze palsy) Face motion symmetric. Tongue was midline with normal movement. ?There was no dysarthria. Motor: Normal strength in right upper and lower extremities. Left hemiparesis noted with left arm pronator drift. Sensation: Decreased light touch on left side, no extinction. ?Coordination: ?Bilateral finger to nose was normal. ?There was no dysmetria. Gait: ?deferred Lab / Micro Data 03/17/25 13:10 03/17/25 13:10 Labs: Laboratory Results - last 24 hr 03/17/25 13:10: WBC 8.5, RBC 4.56 L, Hgb 14.6, Hct 43.0, MCV 94.3 H, MCH 32.0, MCHC 34.0, RDW Std Deviation 46.5 H, RDW Coeff of Jason 13.4, Plt Count 189, MPV 11.4, Immature Gran % (Auto) 0.400, Neut % (Auto) 60.9, Lymph % (Auto) 24.1, Boundary % (Auto) 11.4 H, Eos % (Auto) 2.1, Baso % (Auto) 1.1 H, Absolute Neuts (auto) 5.2, Absolute Lymphs (auto) 2.06, Nucleated RBC % 0, PT 13.4, INR 1.0, APTT 24.5, Sodium 138, Potassium 4.1, Chloride 104, Carbon Dioxide 23.1, Anion Gap 11, BUN 17, Creatinine 0.84, Estim Creat Clear Calc 94.63, Est GFR (MDRD) Non-Af 96, BUN/Creatinine Ratio 20.6 H, Glucose 134 H, Calcium 9.1, Troponin T High Sens < 6 03/17/25 14:00: Hemoglobin A1c 5.9 H, TSH 1.390 Imaging Radiology Impression Brain CT 03/17/25 12:58 IMPRESSION: No acute intracranial abnormalities. Reading Location: [id number] Head/Neck CTA 03/17/25 13:08 IMPRESSION: 1. There is no significant arterial stenosis or aneurysm in the head and neck vascular structures. Reading Location: [id number] Chest X-Ray 03/17/25 14:15 IMPRESSION: 1. Possible atelectasis at the left lung base. Reading Location: [id number] Brain CT 03/17/25 18:32 IMPRESSION: No intracranial hemorrhage or large territorial infarct. Microangiopathic disease hinders exclusion of a small acute infarct; CTP (CT Perfusion scan) or MRI with diffusion weighted imaging would provide further detail of the parenchyma should additional information be required. Reading Location: [facility] Active Medications Active Medications Active Medications: Current Medications Generic Name Dose Route Start Last Admin Trade Name Freq PRN Reason Stop Dose Admin Acetaminophen 650 mg 03/17/25 13:30 Acetaminophen 325 Mg Tablet PO X1 PRN Temp > 99.6 F Acetaminophen 650 mg 03/17/25 15:27 Acetaminophen 325 Mg Tablet PO Q6H PRN PRN Pain 1-10 Or Fever>100.7 Atorvastatin Calcium 40 mg 03/17/25 22:00 03/17/25 21:26 Atorvastatin Calcium 40 Mg Tablet PO 40 mg QHS MARIO Administration Sodium Chloride 1,000 mls @ 100 mls/hr 03/17/25 13:30 03/17/25 19:53 IV 0 mls/hr .Q10H MARIO Infusion Nicardipine/Sodium Chloride 20 mg in 200 mls @ 50 mls/hr 03/17/25 15:27 03/18/25 08:29 Cardene-Aakash 20 Mg/200 Ml Soln CONT INF 03/18/25 15:27 Not Given Q4H MARIO Protocol 5 MG/HR Labetalol HCl 20 mg 03/17/25 12:58 Labetalol 20 Mg/4 Ml Vial IV 03/18/25 12:58 X1 PRN BLOOD PRESSURE Melatonin 3 mg 03/17/25 15:27 Melatonin 3 Mg Tablet PO QHS PRN PRN INSOMNIA Ondansetron HCl 4 mg 03/17/25 15:27 Ondansetron 4 Mg/2 Ml Vial IV Q8H PRN PRN NAUSEA/VOMITING Sodium Chloride 10 - 40 ml 03/17/25 15:42 03/18/25 08:12 0.9% Saline Lock 10 Ml Syringe IV 10 ml UD PRN Administration SALINE FLUSH NIHSS NIHSS Nursing Documentation NIHSS Nursing Documentation: Thrombolytic: Vital Signs & NIHSS Start: 03/17/25 13:31 Text: Assess and document vital signs and NIHSS Status: Active within 15 minutes of tenecteplase bolus administration Freq: [id number] Protocol: Activity Type Activity Date Activity User E-sign Co-sign Detail Recorded Client Recorded Date Recorded By Document 03/18/25 10:01 MS [id number] 03/18/25 10:06 MS 03/18/25 10:01 Vital Signs [Pulse] -Pulse Rate (60-100) 70 -Pulse Location Monitor [Respirations] -Respiratory Rate (12-18) 22 H -Respiratory rate source Monitor -Pulse Oximetry 96 -Oxygen Delivery Method Room Air [Blood Pressure] -Blood Pressure (90/60-120/80) 133/68 H -Blood Pressure Mean 89 -Source Monitor -Position Supine -Blood Pressure Location Right Forearm -Is the SBP > or = 180 No -Is the DBP > or = 105 No NIH Stroke Scale [NIHSS] A score of 0 is normal or asymptomatic . Total possible score is 42. Inpatient: RN or Physician to activate a stroke alert for onset of new stroke symptoms or with NIHSS increase >/= 3 points. Following change in neurological status, NIHSS will be performed per physician order or more frequently PRN. -1a. Level of Consciousness 0 - Alert; keenly responsive -1b. LOC Questions 0 - Answers BOTH questions correctly -1c. LOC Commands 0 - Performs BOTH tasks correctly -2. Best Gaze 1 - Partial gaze palsy; -3. Visual 0 - No visual loss -4. Facial Palsy 0 - Normal symmetrical movements -5a. Left Arm 0 - No drift; arm holds 90 ( or 45) degrees for full 10 seconds -5b. Right Arm 0 - No drift; arm holds 90 ( or 45) degrees for full 10 seconds -6a. Left Leg 0 - No drift; leg holds 30- degree position for full 5 seconds -6b. Right Leg 0 - No drift; leg holds 30- degree position for full 5 seconds -7. Limb Ataxia 0 - Absent -8. Sensory 1 - Mild-to- moderate sensory loss; -9. Best Language 0 - No aphasia; normal -10. Dysarthria 0 - Normal -11. Extinction and Inattention 0 - No abnormality -Total 2 Query Text:A score of 0 is normal or asymptomatic. Total possible score is 42 . ED: Notify Physician for NIHSS increase by > / = 3 points. Inpatient: RN or Physician to activate a stroke alert for NIHSS increase of > / = 3 points. NIHSS 1a. Level of Consciousness: 0 - Alert; keenly responsive 1b. LOC Questions: 0 - Answers BOTH questions correctly 1c. LOC Commands: 0 - Performs BOTH tasks correctly 2. Best Gaze: 2 - Forced deviation, 3. Visual: 0 - No visual loss 4. Facial Palsy: 0 - Normal symmetrical movements 5a. Left Arm: 1 - Drift; arm drifts downward but doesn?t hit the bed 5b. Right Arm: 0 - No drift; arm holds 90 (or 45) degrees for full 10 seconds 6a. Left Le - No drift; leg holds 30-degree position for full 5 seconds 6b. Right Le - No drift; leg holds 30-degree position for full 5 seconds 7. Limb Ataxia: 0 - Absent 8. Sensory: 1 - [id number] sensory loss; 9. Best Language: 0 - No aphasia; normal 10. Dysarthria: 0 - Normal 11. Extinction and Inattention: 0 - No abnormality Total: 4
--- NOTE | 2025-03-18 10:41 | PN.HOSP_ITS ---
Reason for Visit Chief Complaint: Dizziness and left-sided weakness with numbness/tingling Subjective Subjective Saw patient at bedside this morning. Patient was laying back in bed comfortably, conversing normally, in no acute distress. Continues to report some numbness and tingling in his left leg and is also having some spasticity and cramping in that leg as well. Notes that the left side of his face does not feel as numb as it did yesterday evening. No other new concerns at morning. Objective Data Objective Data Vital Signs: Vital Signs Temp Pulse Resp BP Pulse Ox O2 Del Method 96.9 F L 70 22 H 133/68 H 96 Room Air 03/18/25 08:01 03/18/25 10:01 03/18/25 10:01 03/18/25 10:01 03/18/25 10:01 03/18/25 10:01 Oxygen Delivery Method Room Air Weight: 99.926 kg Body Mass Index (BMI) 36.7 Intake & Output: Intake and Output for Last 24 Hours 03/16/25 03/17/25 03/18/25 23:59 23:59 23:59 Intake Total 865 / 865 360 / 360 Output Total 750 / 925 825 / 825 Balance 115 / -60 -465 / -465 Lab / Micro Data 03/17/25 13:10 03/17/25 13:10 Labs: Laboratory Results - last 24 hr 03/17/25 13:10: WBC 8.5, RBC 4.56 L, Hgb 14.6, Hct 43.0, MCV 94.3 H, MCH 32.0, MCHC 34.0, RDW Std Deviation 46.5 H, RDW Coeff of Jason 13.4, Plt Count 189, MPV 11.4, Immature Gran % (Auto) 0.400, Neut % (Auto) 60.9, Lymph % (Auto) 24.1, M rachel % (Auto) 11.4 H, Eos % (Auto) 2.1, Baso % (Auto) 1.1 H, Absolute Neuts (auto) 5.2, Absolute Lymphs (auto) 2.06, Nucleated RBC % 0, PT 13.4, INR 1.0, APTT 24.5, Sodium 138, Potassium 4.1, Chloride 104, Carbon Dioxide 23.1, Anion Gap 11, BUN 17, Creatinine 0.84, Estim Creat Clear Calc 94.63, Est GFR (MDRD) Non-Af 96, BUN/Creatinine Ratio 20.6 H, Glucose 134 H, Calcium 9.1, Troponin T High Sens < 6 03/17/25 14:00: Hemoglobin A1c 5.9 H, TSH 1.390 Radiography Diagnostic Testing: Radiology Impression Brain CT 03/17/25 12:58 IMPRESSION: No acute intracranial abnormalities. Reading Location: [facility] Head/Neck CTA 03/17/25 13:08 IMPRESSION: 1. There is no significant arterial stenosis or aneurysm in the head and neck vascular structures. Reading Location: [facility] Chest X-Ray 03/17/25 14:15 IMPRESSION: 1. Possible atelectasis at the left lung base. Reading Location: [facility] Brain CT 03/17/25 18:32 IMPRESSION: No intracranial hemorrhage or large territorial infarct. Microangiopathic disease hinders exclusion of a small acute infarct; CTP (CT Perfusion scan) or MRI with diffusion weighted imaging would provide further detail of the parenchyma should additional information be required. Reading Location: [facility] Physical Exam Const alert, oriented x3 and no apparent distress Constitutional Narrative: Upper middle-age male, class II obesity, sitting back comfortably in bed, conversing normally, in no acute distress. General Appearance: cooperative and comfortable HEENT normocephalic, head/scalp atraumatic, hearing grossly normal bilaterally, nasal mucous membranes and turbinates normal and moist oral mucous membranes Eyes PERRL, EOMs intact bilaterally and conjunctivae normal Eyes Narrative: Nystagmus noted on neuro exam as below. Neck full ROM Chest inspection of chest normal Resp normal respiratory effort, normal air movement, no use of accessory muscles and clear to auscultation bilaterally Cardio regular rate, regular rhythm, no murmurs and peripheral pulses 2+ throughout GI normal to inspection, nondistended, normoactive bowel sounds, soft to palpation, non-tender and non-distended Back/Spine normal ROM Extremity normal to inspection and no pedal edema Skin no rashes or lesions noted Neuro oriented x3 and moves all extremities Neuro Narrative: Nystagmus with right gaze deviation noted. +4/5 strength in left lower extremity with some muscle spasticity noted and left leg sensation change noted per patient. Unchanged from yesterday. Coordination / Balance: [id number] test normal Speech: speech normal Psych mental status grossly normal Assessment & Plan Assessment/Plan (1) Stroke-like symptoms: PLAN: Plan Patient is a 65-year-old male who presented to [facility] ED on 03/17/2025 with dizziness and left-sided weakness with numbness/tingling. 1. Strokelike symptoms s/p TNK administration ? Neurology following. Presented with acute onset dizziness and left-sided weakness with numbness/tingling. NIHSS score of [address] brain and CTA head/neck unremarkable. S/p TNK administration at 1330 on 03/17. Orders placed per stroke protocol order set. A1c 5.9%, TSH normal. Lipid panel ordered. PT/OT/case management following. Will repeat CT head at the 24-hour katie today at 2 PM. If normal, patient will be okay to go on bedrest and will transfer patient down to PCU. Will then plan for MRI brain with and without contrast tomorrow morning for further evaluation. Echocardiogram ordered as well. Per neurology, will be okay to initiate aspirin daily and subcu Lovenox tomorrow morning. Patient with some left leg muscle spasms and spasticity on 03/18, tizanidine 2 mg every 8 hours as needed ordered. 2. Reported history of MS ? Neurology following as above. Patient reports history of MS diagnosis back in 1991. States he was on medication for this for about 1 year then self discontinued and has not seen a doctor for this since then. Denies any MS related symptoms in many years and reports good functional status at baseline. Unclear if symptoms above could be related to a possible MS flare. Will get MRI brain with and without contrast tomorrow morning as above. 3. Tobacco dependence ? Uses chewing tobacco on a daily basis. Denied need for nicotine replacement therapy while inpatient. Discussed cessation of discharge. 4. Class II obesity ? BMI 37 on admit. Complicates hospital course and care. Encouraged lifestyle modifications. DVT prophylaxis: SCDs CODE STATUS: Full code, verified Expected disposition: TBD Total clinical time spent by myself addressing the patient's medical issues, reviewing all the data, and collaborating with patient's care team: 38 minutes. Charges/Coding Visit Charges Inpatient E&M: 42883 Subs Hosp L2 NIHSS NIHSS Nursing Documentation NIHSS Nursing Documentation: Thrombolytic: Vital Signs & NIHSS Start: 03/17/25 13:31 Text: Assess and document vital signs and NIHSS Status: Active within 15 minutes of tenecteplase bolus administration Freq: [id number] Protocol: Activity Type Activity Date Activity User E-sign Co-sign Detail Recorded Client Recorded Date Recorded By Document 03/18/25 10:01 MS [id number] 03/18/25 10:06 MS 03/18/25 10:01 Vital Signs [Pulse] -Pulse Rate (60-100) 70 -Pulse Location Monitor [Respirations] -Respiratory Rate (12-18) 22 H -Respiratory rate source Monitor -Pulse Oximetry 96 -Oxygen Delivery Method Room Air [Blood Pressure] -Blood Pressure (90/60-120/80) 133/68 H -Blood Pressure Mean (mm Hg) 89 -Source Monitor -Position Supine -Blood Pressure Location Right Forearm -Is the SBP > or = 180 No -Is the DBP > or = 105 No NIH Stroke Scale [NIHSS] A score of 0 is normal or asymptomatic . Total possible score is 42. Inpatient: RN or Physician to activate a stroke alert for onset of new stroke symptoms or with NIHSS increase >/= 3 points. Following change in neurological status, NIHSS will be performed per physician order or more frequently PRN. -1a. Level of Consciousness 0 - Alert; keenly responsive -1b. LOC Questions 0 - Answers BOTH questions correctly -1c. LOC Commands 0 - Performs BOTH tasks correctly -2. Best Gaze 1 - Partial gaze palsy; -3. Visual 0 - No visual loss -4. Facial Palsy 0 - Normal symmetrical movements -5a. Left Arm 0 - No drift; arm holds 90 ( or 45) degrees for full 10 seconds -5b. Right Arm 0 - No drift; arm holds 90 ( or 45) degrees for full 10 seconds -6a. Left Leg 0 - No drift; leg holds 30- degree position for full 5 seconds -6b. Right Leg 0 - No drift; leg holds 30- degree position for full 5 seconds -7. Limb Ataxia 0 - Absent -8. Sensory 1 - Mild-to- moderate sensory loss; -9. Best Language 0 - No aphasia; normal -10. Dysarthria 0 - Normal -11. Extinction and Inattention 0 - No abnormality -Total 2 Query Text:A score of 0 is normal or asymptomatic. Total possible score is 42 . ED: Notify Physician for NIHSS increase by > / = 3 points. Inpatient: RN or Physician to activate a stroke alert for NIHSS increase of > / = 3 points.
--- NOTE | 2025-03-18 13:52 | CT_ITS ---
PROCEDURE: BRAIN/HEAD WITHOUT CONTRAST 03/18/2025 REASON FOR EXAM: 24H POST TNK TECHNIQUE: Procedure Code: CTBR Modality: CT Procedure: BRAIN/HEAD WITHOUT CONTRAST Coronal and Sagittal reconstruction series were provided. One or more dose reduction techniques were used (e.g., Automated exposure control, adjustment of the mA and/or kV according to patient size, use of iterative reconstruction technique. RADIATION DOSE SUMMARY: CTDlvol: 44.99 mGy DLP: 846.73 mGycm COMPARISON: 03/17/2025 FINDINGS: BRAIN: No acute intraparenchymal hemorrhage. No mass lesion. No CT evidence for acute territorial infarct. No midline shift or extra-axial collection. Mild cerebral volume loss. Mild periventricular white matter low attenuation, likely microvascular ischemic changes. VENTRICLES: No hydrocephalus. ORBITS: The orbits are unremarkable. SINUSES AND MASTOIDS: Partially imaged left maxillary sinus retention cyst/polyp. The mastoid air cells are clear. SOFT TISSUES: No acute abnormality seen. BONES: No acute osseous abnormality seen. CT/Brain/Head without Contrast IMPRESSION: No acute intracranial abnormality. Reading Location: [id number]
[2025-03-18 17:43] LABS: Hematocrit 42.2 % (40-54); Hemoglobin 14.2 g/dL (13.0-16.5); Mean Corp Hgb Conc 33.6 g/dL (32-36); Mean Corpuscular Volume 95.3 fL (80-94); Mean Platelet Vol. 11.9 fl (6.2-12.0); Platelet Count 181 K/mm3 (150-450); RBC Distribution Width CV 13.6 % (11.6-14.6); RBC Distribution Width SD 48.0 fl (35.1-43.9); Red Blood Count 4.43 M/mm3 (4.6-6.2); White Blood Count 8.4 K/mm3 (4.4-11.0)
[2025-03-18 18:28] LABS: Cholesterol 150 mg/dL (<=200); Low Density Lipoprotein Calc. 88 mg/dL; Triglycerides 129 mg/dL; Very Low Density Lipoprotein 26 mg/dL (5-40); cholesterol:hdl ratio screen 3.83
[2025-03-18 19:04] LABS: Anion Gap 9 (5-15); BUN 17 mg/dL (4-19); BUN/Creat Ratio 19.0 RATIO (10-20); Calcium,Total 8.7 mg/dL (7.6-11.0); Carbon Dioxide 25.1 mmol/L (21.0-32.0); Chloride 104 mmol/L (98-108); Estimated Creatinine Clearance 87.78 ml/min (50-250); Glucose 155 mg/dL (70-99); Potassium 4.1 mmol/L (3.3-5.1)
[2025-03-19] VITALS (12 sets, daily range): BP systolic 129–152; BP diastolic 70–119; PULSE 56–82; RESP 14–20; TEMP 36.6–37.1; O2SAT 94–97; BMI 35.5
--- NOTE | 2025-03-19 09:00 | MRI_ITS ---
PROCEDURE: BRAIN W/WO CONTRAST 03/18/2025 REASON FOR EXAM: CVA RULE OUT, H/O MS TECHNIQUE: Procedure Code: MRIBRWW Modality: MR Procedure: BRAIN W/WO CONTRAST Multiplanar and multisequence images were obtained. CONTRAST: VOLUME: mL COMPARISON: CT dated 03/18/2025. FINDINGS: Numerous FLAIR hyperintense foci are noted within the bilateral cerebral and left cerebellar white matter. Many of these lesions are ovoid and perpendicularly oriented to the long axis of the lateral ventricles, consistent with the patient's history of multiple sclerosis. No corresponding enhancement of these FLAIR hyperintense lesions. The matthews-white matter differentiation is appropriate. The ventricles are normal in size and configuration. No midline shift. The midline structures are intact, specifically the corpus callosum, septum pellucidum, pituitary gland, and cerebellar vermis. The cervicomedullary junction appears unremarkable. Small mucous retention cyst within the left maxillary sinus. The remainder of the paranasal sinuses and the bilateral mastoid air cells are clear. Diffusion-weighted images demonstrate no restricted diffusion. No MR evidence of acute ischemia. No abnormal enhancement pattern. MRI/Brain W/WO Contrast IMPRESSION: Findings consistent with the patient's history of multiple sclerosis. No MR evidence of acute ischemia. Reading Location: [id number]
[2025-03-19] MEDS: 0.9% Saline Lock 10 ML Syringe IV (10:52)
--- NOTE | 2025-03-19 11:03 | CASEMGMT ---
RN NATALIO Assessment Face to Face with patient for initial transition planning/care coordination assessment. RN NATALIO introduced self and role at [facility], pt voices understanding. Pt is A&Ox4 and is resting comfortably in the chair and is calm. Pt's RN at the bedside. Care providers, pharmacy, and demographics verified. Admitting dx: Acute CVA s/p TNK LACE Strata: 1 PCP: None. Provider list given at this time Specialists: Denies Preferred Pharmacy: [facility] Insurance: Pt is listed as SP. Castillo (Pt Hospice Community Liaison notified). However, pt states that he believes that he has insurance but does not know that agency. Pt states that he does not have an insurance card. SW notified. Prescription Benefit: None. CM to follow LNOK: Yari (Sister), Alyce (Daughter). Per the nursing report, the pt's sister is wishing to speak with SW. SW is aware and plans to follow up Living Arrangements: Pt lives alone in a ground level apartment with a flat entrance ADLs/IADLs: Pt states that he is indep at baseline. However, current 6-Click score is 13. PT is pending Transportation: Self, Family DME: Denies HHC/SNF: Denies Pt?s goal: Home Plan: Anticipate DC home once medically ready, follow Rx costs and insurance needs as well as PT evaluation and progression. Pt is aware that HH is not an option due to no PCP. Pt states that he may be interested in OP Tx but would like to work with PT first. Pt denies further questions or concerns. CM and SW to follow. Ann Trinh RN, CM
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
--- NOTE | 2025-03-19 15:58 | PN.NEURO_ITS ---
Assessment and Plan: Neuro Assessment/Plan Telestroke Attending Adi Note 65 y/o right handed male with a history of MS (diagnosed in 1991, self- discontinued MS meds after 1 year and didnt see doctor after that) who on 03/17/25 at 12p developed left sided weakness/numbness. He presented to [place] ER where ER gave him NIHSS 5. CT brain negative. CTA head/neck negative. Telestroke phone consult recommended IV TNK which was given at 1330. [address] brain negative. MRI brain- no acute stroke or enhancing lesion noticed. TTE_ EF-65% with mildly dilated LA. Neurological examination shows no gaze palsy today and only found to have decrease sensation in LLE. NIHSS-1. ASSESSMENT/PLAN: TIA vs TNK aborted stroke 1) ASA and statin. 2-DVT prophylaxis 3) Continue vascular risk factor modification. On lipitor. 4) OT/PTSLP 5)Please call us for any questions I personally attended this patient and spent a total time of 35 minutes evaluating this patient including clinical assessment, review of chart, medical history imaging, and determining appropriate treatment and workup. Subject: Neurology Subjective He reports feeling better today with NIHSS-1. He still reports of pain/spasm in LLE. EEG Results Procedure Details EEG Procedure Details: MELYSSA GALE is a 65 year old M with a past medical history of , who presents for evaluation of Electroencephalogram on DATE at TIME Objective Data Objective Data Vital Signs: Vital Signs Temp Pulse Resp BP Pulse Ox O2 Del Method 97.8 F 79 15 139/73 H 94 Room Air 03/19/25 14:00 03/19/25 14:00 03/19/25 14:00 03/19/25 14:00 03/19/25 14:00 03/19/25 14:00 Oxygen Delivery Method Room Air Weight: 96.827 kg Body Mass Index (BMI) 35.5 Intake & Output: Intake and Output for Last 24 Hours 03/17/25 03/18/25 03/19/25 23:59 23:59 23:59 Intake Total 865 / 865 870 / 870 150 / 150 Output Total 750 / 925 1275 / 1425 375 / 375 Balance 115 / -60 -405 / -555 -225 / -225 Lab / Micro Data 03/18/25 17:30 03/18/25 17:30 Labs: Laboratory Results - last 24 hr 03/18/25 17:30: WBC 8.4, RBC 4.43 L, Hgb 14.2, Hct 42.2, MCV 95.3 H, MCH 32.1 H, MCHC 33.6, RDW Std Deviation 48.0 H, RDW Coeff of Jason 13.6, Plt Count 181, MPV 11.9, Sodium 139, Potassium 4.1, Chloride 104, Carbon Dioxide 25.1, Anion Gap 9, BUN 17, Creatinine 0.90, Estim Creat Clear Calc 87.78, Est GFR (MDRD) Non-Af 94, BUN/Creatinine Ratio 19.0, Glucose 155 H, Calcium 8.7, Triglycerides 129, Cholesterol 150, LDL Cholesterol, Calc 88, VLDL Cholesterol 26, HDL Cholesterol 39 L, Cholesterol/HDL Ratio 3.83 Radiography Diagnostic Testing: Radiology Impression Echocardiogram 03/17/25 15:27 Interpretation Summary The study was technically difficult. The left ventricular ejection fraction is 65 %. The left atrium is mildly enlarged. Trivial pericardial effusion. Ordering Physician: Cheikh Galdamez Performed By: Nya Russell RDCS Brain MRI 03/19/25 09:00 IMPRESSION: Findings consistent with the patient's history of multiple sclerosis. No MR evidence of acute ischemia. Reading Location: [id number] Physical Exam Narrative General: The patient appears nutritionally appropriate, well-groomed, and appears comfortable in no acute distress. Mental Status: ?The patient?s mental status was normal including orientation. ?Language was intact. ?Cranial nerves: ?Today, no gaze palsy noticed on my exam. Face motion symmetric. Tongue was midline with normal movement. ?There was no dysarthria. Motor: Normal strength in all extremities Sensation: Decreased light touch on left side, no extinction. ?Coordination: ?Bilateral finger to nose was normal. ?There was no dysmetria. Gait: ?deferred NIHSS NIHSS Nursing Documentation NIHSS Nursing Documentation: Thrombolytic: Vital Signs & NIHSS Start: 03/17/25 13:31 Text: Assess and document vital signs and NIHSS Status: Complete within 15 minutes of tenecteplase bolus administration Freq: Q2H Protocol: Activity Type Activity Date Activity User E-sign Co-sign Detail Recorded Client Recorded Date Recorded By Document 03/19/25 06:00 [id number] 03/19/25 06:49 KW 03/19/25 06:00 Vital Signs [Temperature Protocol: VS] -Temperature (97.8 F-99.1 F) 97.8 F -Temperature Source Temporal [Pulse] -Pulse Rate (60-100) 59 L -Pulse Location Monitor [Respirations] -Respiratory Rate (12-18) 17 -Respiratory rate source Monitor -Pulse Oximetry 96 -Oxygen Delivery Method Room Air [Blood Pressure] -Blood Pressure (90/60-120/80) 152/97 H -Blood Pressure Mean (mm Hg) 115 -Source Monitor -Position Supine -Blood Pressure Location Right Forearm -Is the SBP > or = 180 No -Is the DBP > or = 105 No NIH Stroke Scale [NIHSS] A score of 0 is normal or asymptomatic . Total possible score is 42. Inpatient: RN or Physician to activate a stroke alert for onset of new stroke symptoms or with NIHSS increase >/= 3 points. Following change in neurological status, NIHSS will be performed per physician order or more frequently PRN. -1a. Level of Consciousness 0 - Alert; keenly responsive -1b. LOC Questions 0 - Answers BOTH questions correctly -1c. LOC Commands 0 - Performs BOTH tasks correctly -2. Best Gaze 1 - Partial gaze palsy; -3. Visual 0 - No visual loss -4. Facial Palsy 0 - Normal symmetrical movements -5a. Left Arm 0 - No drift; arm holds 90 ( or 45) degrees for full 10 seconds -5b. Right Arm 0 - No drift; arm holds 90 ( or 45) degrees for full 10 seconds -6a. Left Leg 0 - No drift; leg holds 30- degree position for full 5 seconds -6b. Right Leg 0 - No drift; leg holds 30- degree position for full 5 seconds -7. Limb Ataxia 0 - Absent -8. Sensory 1 - Mild-to- moderate sensory loss; -9. Best Language 0 - No aphasia; normal -10. Dysarthria 0 - Normal -11. Extinction and Inattention 0 - No abnormality -Total 2 Query Text:A score of 0 is normal or asymptomatic. Total possible score is 42 . ED: Notify Physician for NIHSS increase by > / = 3 points. Inpatient: RN or Physician to activate a stroke alert for NIHSS increase of > / = 3 points. NIHSS 1a. Level of Consciousness: 0 - Alert; keenly responsive 1b. LOC Questions: 0 - Answers BOTH questions correctly 1c. LOC Commands: 0 - Performs BOTH tasks correctly 2. Best Gaze: 0 - Normal 3. Visual: 0 - No visual loss 4. Facial Palsy: 0 - Normal symmetrical movements 5a. Left Arm: 0 - No drift; arm holds 90 (or 45) degrees for full 10 seconds 5b. Right Arm: 0 - No drift; arm holds 90 (or 45) degrees for full 10 seconds 6a. Left Le - No drift; leg holds 30-degree position for full 5 seconds 6b. Right Le - No drift; leg holds 30-degree position for full 5 seconds 7. Limb Ataxia: 0 - Absent 8. Sensory: 1 - Danj-[id number] sensory loss; 9. Best Language: 0 - No aphasia; normal 10. Dysarthria: 0 - Normal 11. Extinction and Inattention: 0 - No abnormality Total: 1
--- NOTE | 2025-03-19 17:40 | NURSING ---
Patient c/o headache 08/31 - tylenol given. Patient then assisted to wheelchair to transfer to PCU. Patient initially c/o dizziness however had subsided per patient to safely transfer to wheelchair. Patient taken to PCU and this RN assisted patient to the bathroom from wheelchair. Patient denied further dizziness. Patient reminded to pull chord when done and not to get up on his own. barrel bander Rei Peterson, ONI updated on headache and dizziness complaints. public health aide informed also and that patient is on toilet. No neuro changes noted.
--- NOTE | 2025-03-19 20:05 | PCM.PN.HOSP ---
Subjective Subjective NIH from nursing remains at 2 which is what he was on admission. Prior to the TNK. Still complaining of left arm numbness now Objective Data Objective Data Vital Signs: Vital Signs Temp Pulse Resp BP Pulse Ox O2 Del Method 98.4 F 82 16 135/73 H 95 Room Air 03/19/25 18:00 03/19/25 18:00 03/19/25 18:00 03/19/25 18:00 03/19/25 18:00 03/19/25 18:00 Oxygen Delivery Method Room Air Weight: 213 lb 7.463 oz Body Mass Index (BMI) 35.5 Intake & Output: Intake and Output for Last 24 Hours 03/18/25 03/19/25 03/20/25 03:59 03:59 03:59 Intake Total 865 / 865 870 / 870 150 / 150 Output Total 1125 / 1125 1050 / 1050 225 / 225 Balance -260 / -260 -180 / -180 -75 / -75 Lab / Micro Data 03/18/25 17:30 03/18/25 17:30 Radiography Diagnostic Testing: Radiology Impression Echocardiogram 03/17/25 15:27 Interpretation Summary The study was technically difficult. The left ventricular ejection fraction is 65 %. The left atrium is mildly enlarged. Trivial pericardial effusion. Ordering Physician: Cheikh Galdamez Performed By: Nya Russell RDCS Brain MRI 03/19/25 09:00 IMPRESSION: Findings consistent with the patient's history of multiple sclerosis. No MR evidence of acute ischemia. Reading Location: [id number] Physical Exam Narrative General: Alert, Oriented x3, Cooperative, No apparent distress HEENT: Atraumatic, PERRLA, EOMI, Normocephalic Oral: Moist Mucosa Neck: Supple, No JVD Lungs: Diminished, Normal air movement, No rhonchi, No wheeze, No rales Cardiovascular: Regular rate, Regular Rhythm, Normal S1, Normal S2, No murmurs Abdomen: Soft, Non Tender, Non-Distended, No Hepato-splenomegaly Extremities: No edema, Capillary Refill Less than 3 Seconds Skin: No rashes, No breakdown Musculoskeletal: No Tenderness to Palpation of Joints or Extremities Neurological: NIH of 2 for left-sided sensory loss and gaze palsy. Moves all extremities and was able to ambulate with PT with standby assist 280 feet Psych/Mental Status: Normal Affect, Appropriate Assessment & Plan Assessment/Plan (1) Stroke-like symptoms: PLAN: Plan 1. Strokelike symptoms s/p TNK administration ? Neurology following. Presented with acute onset dizziness and left-sided weakness with numbness/tingling. NIHSS score of [address] brain and CTA head/neck unremarkable. S/p TNK administration at 1330 on 03/17. Orders placed per stroke protocol order set. A1c 5.9%, TSH normal. Lipid panel ordered. PT/OT/case management following. Will repeat CT head at the 24-hour katie today at 2 PM. If normal, patient will be okay to go on bedrest and will transfer patient down to PCU. Will then plan for MRI brain with and without contrast tomorrow morning for further evaluation. Echocardiogram ordered as well. Per neurology, will be okay to initiate aspirin daily and subcu Lovenox tomorrow morning. Patient with some left leg muscle spasms and spasticity on 03/18, tizanidine 2 mg every 8 hours as needed ordered. 03/19/2025: MRI with findings consistent of his history of multiple sclerosis however no evidence of acute ischemia. No further recommendations from neurology, echocardiogram was unremarkable with an EF of 65%. Will continue with aspirin and statin 2. Reported history of MS ? Neurology following as above. Patient reports history of MS diagnosis back in 1991. States he was on medication for this for about 1 year then self discontinued and has not seen a doctor for this since then. Denies any MS related symptoms in many years and reports good functional status at baseline. Unclear if symptoms above could be related to a possible MS flare. Will get MRI brain with and without contrast tomorrow morning as above. 3. Tobacco dependence ? Uses chewing tobacco on a daily basis. Denied need for nicotine replacement therapy while inpatient. Discussed cessation of discharge. 4. Class II obesity ? BMI 37 on admit. Complicates hospital course and care. Encouraged lifestyle modifications. DVT: SCDs Charges/Coding Visit Charges Inpatient E&M: 54830 Subs Hosp L2 NIHSS NIHSS Nursing Documentation NIHSS Nursing Documentation: Thrombolytic: Vital Signs & NIHSS Start: 03/17/25 13:31 Text: Assess and document vital signs and NIHSS Status: Complete within 15 minutes of tenecteplase bolus administration Freq: Q2H Protocol: Activity Type Activity Date Activity User E-sign Co-sign Detail Recorded Client Recorded Date Recorded By Document 03/19/25 06:00 KW [id number] 03/19/25 06:49 KW 03/19/25 06:00 Vital Signs [Temperature Protocol: VS] -Temperature (97.8 F-99.1 F) 97.8 F -Temperature Source Temporal [Pulse] -Pulse Rate (60-100) 59 L -Pulse Location Monitor [Respirations] -Respiratory Rate (12-18) 17 -Respiratory rate source Monitor -Pulse Oximetry 96 -Oxygen Delivery Method Room Air [Blood Pressure] -Blood Pressure (90/60-120/80) 152/97 H -Blood Pressure Mean (mm Hg) 115 -Source Monitor -Position Supine -Blood Pressure Location Right Forearm -Is the SBP > or = 180 No -Is the DBP > or = 105 No NIH Stroke Scale [NIHSS] A score of 0 is normal or asymptomatic . Total possible score is 42. Inpatient: RN or Physician to activate a stroke alert for onset of new stroke symptoms or with NIHSS increase >/= 3 points. Following change in neurological status, NIHSS will be performed per physician order or more frequently PRN. -1a. Level of Consciousness 0 - Alert; keenly responsive -1b. LOC Questions 0 - Answers BOTH questions correctly -1c. LOC Commands 0 - Performs BOTH tasks correctly -2. Best Gaze 1 - Partial gaze palsy; -3. Visual 0 - No visual loss -4. Facial Palsy 0 - Normal symmetrical movements -5a. Left Arm 0 - No drift; arm holds 90 ( or 45) degrees for full 10 seconds -5b. Right Arm 0 - No drift; arm holds 90 ( or 45) degrees for full 10 seconds -6a. Left Leg 0 - No drift; leg holds 30- degree position for full 5 seconds -6b. Right Leg 0 - No drift; leg holds 30- degree position for full 5 seconds -7. Limb Ataxia 0 - Absent -8. Sensory 1 - Mild-to- moderate sensory loss; -9. Best Language 0 - No aphasia; normal -10. Dysarthria 0 - Normal -11. Extinction and Inattention 0 - No abnormality -Total 2 Query Text:A score of 0 is normal or asymptomatic. Total possible score is 42 . ED: Notify Physician for NIHSS increase by > / = 3 points. Inpatient: RN or Physician to activate a stroke alert for NIHSS increase of > / = 3 points.
[2025-03-20 03:16] VITALS: BMI 34.7
[2025-03-20 03:37] VITALS: BP 139/82; PULSE 56; RESP 14; TEMP 36.4; O2SAT 96
[2025-03-20 05:00] VITALS: BMI 34.7
[2025-03-20 06:55] VITALS: O2SAT 94
[2025-03-20 09:05] VITALS: BP 132/70; PULSE 58; RESP 18; TEMP 36.3; O2SAT 97
[2025-03-20 09:14] VITALS: BMI 34.7
--- NOTE | 2025-03-20 09:45 | DCINST_ITS ---
Discharge Instructions DC O2, CPAP, BIPAP needs Home O2 Discharge instructions: No Dressing / Incision Discharge Activity: Return to Normal Activity Dressing / Incision Call your doctor if you observe: Fever of 101 or Higher, Shortness of breath, Dizziness, Fainting spells, Swelling in the ankles, Chest pain and Increased palpitations (irregular heartbeat) Follow Up Care Test Results: Test results from this visit will be discussed in further detail at your follow- up appointment, if applicable. Discharge Plan Admission Admit Date/Time: 03/17/25 13:57 Attending Provider: Buck Fitzpatrick Primary Care Provider: Care Physician,No Primary Consulting Providers: Cheikh Galdamez; Narinder Escobar; Parker Ibarra; Carlos Rios; Xavier Whitmore; Sudeep Aguilera; Dalila Epstein; Chaim Horner; Juan Miguel Ghosh; Micheal Hussein; Radha Chandra; Tao Morales; Kenrick Rangel; Maureen Naranjo; Urban Laguna; Kendell Sheikh; Jaswinder Self; Leslie Reed; Jeanine Yee; Helio Bell; Pallavi Hensley; Kar Lopez; Ludwin Tolentino; Radha Dugan; Lilo Resendiz; Cheng Kessler; Crow Welsh; Radha Vazquez; Buck Egan; Corey Richards; Roberto Sarmiento; Kayla Florence; Lucho eWiss; Shani,Mendez; Nick Garcia; Margareth Salgado; Mango,Angelina; Miek,Sammerrick; Kd Cadet; Santos Cummins; Irene,Filemon; Simeon Valle; Mary Jo Jenkins; Vladimir Richardson; Vandana De La Rosa NP; Tessa Pastrana; Milad Tello; Milan Stokes; Garima Morales; Phylicia Burns; Angeline Ross; Zain Segura; Kayla Pinedo; Sumit Beasley; Efrain Juan; Cosme Marquez; Nani Bennett; Mayra Gurrola; Thiago Brooks; Devi Reyes; Crow Millan; Jarred Brunner; Ceasar Hartley; Amy Molina; Chele Weiss; Judi Martinez; Lissette Madden Discharge Orders/Prescriptions Prescriptions: New atorvastatin 40 mg Tablet 40 mg PO QHS 30 Days Qty: 30 0RF aspirin 81 mg Tablet,Chewable 81 mg PO BREAKFAST 30 Days Qty: 30 0RF Referrals / Follow Up: Seymour Bolden MD [Non-Staff -Ordering Privileges, Neurology] - Within 1 Month Care Physician,No Primary [Primary Care Provider, Medical] Disposition Disposition (needs filled in before D/C Order can be placed): Home, Self Care
[2025-03-20 10:00] VITALS: BP 132/70; PULSE 58; RESP 18; TEMP 36.3; O2SAT 97
--- NOTE | 2025-03-20 10:33 | CASEMGMT ---
Social Work SW spoke with the patient and he reported his aunt is picking him up for DC. SW spoke with him about outpatient therapy. He reported he wanted the script. SW offered to fax it over to [facility] for the patient but he wanted to think about. Patient reported he is going to MS specialist. ADRIAN Jaffe
--- NOTE | 2025-03-20 10:41 | CASEMGMT ---
Social Work SW called [facility] and left a message. ADRIAN Jaffe
--- NOTE | 2025-03-20 10:43 | CASEMGMT ---
Social Work Per imaging pt negative for stroke, therefore PHQ9 not completed. ADRIAN Jaffe
--- NOTE | 2025-03-20 10:47 | CASEMGMT ---
Social Work SW spoke with the patient and provided him with an OP script with a [facility] rack card attached and a rack card with PCP's. ADRIAN Jaffe
--- NOTE | 2025-03-20 11:25 | PHA.DC.MC.R ---
Pharmacy [facility] Counseling Pharmacy Service has performed discharge medication reconciliation and counseling for this patient. The patient's discharge medication list was reviewed for discrepancies and discrepancies were resolved. The patient was counseled on the following discharge medications and changes in medications for homegoing were reviewed. The Reason for Use, instructions for use, and potential side effects were reviewed for all new medications. The patient's questions regarding all of their medications were answered. 1. Aspirin 81 mg PO daily 2. Atorvastatin 40 mg PO QHS The patient was able to verbally demonstrate an understanding of their discharge medications. Medications at Discharge Home Medications aspirin 81 mg chewable tablet 81 mg PO BREAKFAST 30 days #30 tabs 03/20/25 atorvastatin 40 mg tablet 40 mg PO QHS 30 days #30 tabs 03/20/25
--- NOTE | 2025-03-20 16:33 | PCM.DC.SUM ---
Providers Date of Admission: 03/17/25 Primary Care Physician: No Primary Care Phys Consultations 03/17/25 13:31 Consult: Information Assurance Analyst / Pulmonary Medicine Routine Consulting Provider: [facility] Reason for Consult: stroke for thrombolytic administration EMERGENT Consult: Yes Notified: Yes Date Notified: 03/17/25 Time Notified: 15:45 Method of Notification: Text Method of Consult:: Telemedicine Comments:: Consult may be done in ED or ICU 03/17/25 15:27 Consult: Tele-Neurology Routine Consulting Provider: [facility] Reason for Consult: Acute Stroke Post Tenecteplase administration EMERGENT Consult: No Notified: Yes Date Notified: 03/17/25 Time Notified: 15:36 Method of Notification: Answering Service Method of Consult:: Telemedicine Nursing Unit Staff Notify [facility] of Tele-Neurology Consult: Yes Reason For Visit: ACUTE CVA S/P TNK Diagnosis Discharge Diagnosis (1) Stroke-like symptoms: Status: Acute Code(s): R29.90 - Unspecified symptoms and signs involving the nervous system Medications at Discharge Home Medications aspirin 81 mg chewable tablet 81 mg PO BREAKFAST 30 days #30 tabs 03/20/25 atorvastatin 40 mg tablet 40 mg PO QHS 30 days #30 tabs 03/20/25 Hospital Course Operations None Procedures 2-D Echocardiogram Summary of Care Provided Minutes Spent on Discharge: 33 Hospital Course: Per HPI: MELYSSA GALE, is a 65 M who presented to [facility] ED on 03/17/2025 with dizziness and left-sided weakness with numbness/tingling. Patient has minimal past medical history. 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 He is on no medications at home. Patient does report a history of multiple sclerosis diagnosed back in 1991. He was on medication for this for about 1 year and then self discontinued, and he has not seen any doctors for this since then. He does not follow with a doctor regularly. Patient has just returned home today from drive the [employer] and when he stepped out of his car, he became very dizzy and ataxic and also noted left-sided weakness with numbness/tingling. He felt like he was going to fall over but he was able to steady himself and sit down. EMS then brought him in for further evaluation. In the ED he was noted to have an NIHSS score of 5 and had significant nystagmus noted on exam. CT brain and CT head/neck were unremarkable. Mildly hypertensive to the 150 systolic. ED physician discussed with [facility] and patient was agreeable to TNK administration. TNK was given at 1330. Hospitalist was then contacted for admission. I saw the patient at bedside in the ED. Patient was sitting back comfortably in bed, conversing normally, in no acute distress. On neuro exam he did continue to have nystagmus noted, and his left leg was mildly weaker than his right with sensation changes noted. Patient denies any history of symptoms like this before. He does use chewing tobacco on a regular basis. Denies any alcohol or recreational drug use. No other acute concerns currently. Will be admitted for further management. Hospital Course: 1. Strokelike symptoms status post TNK administration?65-year-old male presented to the hospital with strokelike symptoms. He did receive TNK was transferred to the ICU to complete the stroke protocol. Repeat imaging did not show any head bleed 24 hours after the TNK and then he had an MRI with and without contrast secondary to his history of MS in the past which was negative for any acute ischemia or new MS plaques of did demonstrate previous MS history. He continues to have left lower extremity and left upper extremity numbness. He was evaluated by PT and OT and was able to ambulate 280 feet with standby assistance. Neurology felt it prudent to discharge on aspirin and Lipitor. I do recommend that he follow-up with neurology as an outpatient given the fact that his MRI was negative for stroke to potentially pursue further evaluation of his numbness with nerve conduction studies and other similar outpatient tests. Echocardiogram during this admission was unremarkable with an EF of 65%. I discussed with him the plan for discharge today and he expressed understanding of the risks and benefits of going home and would like to go home today. Physical Exam Narrative General: Alert, Oriented x3, Cooperative, No apparent distress HEENT: Atraumatic, PERRLA, EOMI, Normocephalic Oral: Moist Mucosa Neck: Supple, No JVD Lungs: Diminished, Normal air movement, No rhonchi, No wheeze, No rales Cardiovascular: Regular rate, Regular Rhythm, Normal S1, Normal S2, No murmurs Abdomen: Soft, Non Tender, Non-Distended, No Hepato-splenomegaly Extremities: No edema, Capillary Refill Less than 3 Seconds Skin: No rashes, No breakdown Musculoskeletal: No Tenderness to Palpation of Joints or Extremities Neurological: NIH of 2 for left-sided sensory loss and gaze palsy. Moves all extremities and was able to ambulate with PT with standby assist 280 feet Psych/Mental Status: Normal Affect, Appropriate Weight / BMI Weight Weight: 208 lb 15.971 oz Body Mass Index (BMI) 34.7 ABG / Lab / Microbiology Data 03/18/25 17:30 03/18/25 17:30 D/C Instructions Call your doctor if you observe: Fever of 101 or Higher, Shortness of breath, Dizziness, Fainting spells, Swelling in the ankles, Chest pain and Increased palpitations (irregular heartbeat) DC O2, CPAP, BIPAP Needs Home O2 Discharge instructions: No Meaningful Use Info Meaningful Use Meaningful Use Diagnoses (Choose all that apply): None applicable Discharge Plan Admission Admit Date/Time: 03/17/25 13:57 Attending Provider: Buck Fitzpatrick Primary Care Provider: Care Physician,No Primary Consulting Providers: Cheikh Galdamez; Narinder Escobar; Parker Ibarra; Carlos Rios; Xavier Whitmore; Sudeep Aguilera; Dalila Epstein; Chaim Horner; Juan Miguel Corea; Micheal Hussein; Radha Chandra; Tao Morales; Kenrick Rangel; Maureen Naranjo; Urban Laguna; Kendell Sheikh; Jaswinder Self; Leslie Reed; Jeanine Yee; Helio Bell; Pallavi Hensley; aKr Lopez; Ludwin Tolentino; Radha Dugan; Lilo Resendiz; Cheng Kessler; Crow Welsh; Radha Vazquez; Buck Egan; Corey Richards; Roberto Sarmiento; Kayla Florence; Lucho Weiss; Mendez Mcleod; Nick Garcia; Margareth Salgado; Angelina Cobian; Yanick Mckeon; Kd Cadet; Santos Cummins; Filemon Bonilla; Simeon Valle; Mary Jo Jenkins; Vladimir Richardson; Vandana De La Rosa NP; Tessa Pastrana; Milad Tello; Milan Stokes; Garima Morales; Phylicia Burns; Angeline Ross; Zain Segura; Kayla Pinedo; Sumit Beasley; Efrain Juan; Csome Marquez; Nani Bennett; Mayra Gurrola; Thiago Brooks; Devi Reyes; Crow Millan; Jarred Brunner; Ceasar Hartley; Amy Molina; Chele Weiss; Judi Martinez; Lissette Madden Discharge Orders/Prescriptions Prescriptions: New atorvastatin 40 mg Tablet 40 mg PO QHS 30 Days Qty: 30 0RF aspirin 81 mg Tablet,Chewable 81 mg PO BREAKFAST 30 Days Qty: 30 0RF Referrals / Follow Up: Seymour Bolden MD [Non-Staff -Ordering Privileges, Neurology] - Within 1 Month Care Physician,No Primary [Primary Care Provider, Medical] Disposition Disposition (needs filled in before D/C Order can be placed): Home, Self Care Charges/Coding Visit Charges Inpatient E&M: 35445 Disch Hosp >30min
--- NOTE | 2025-03-21 11:08 | CASEMGMT ---
Social Work SW called [facility] and left a message. ADRIAN Jaffe
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
== END 2025-03-20 12:40 | disposition home or self-care (01) | DRG 60 ==
LOC: ED 14:32 → ICU 14:34 → PCU 03-19 17:48
PROVIDERS: Admitting Provider Hospitalist; Emergency Provider Emergency Medicine; Visit Provider Family Medicine
DX: G35.D Multiple sclerosis, unspecified (principal); E66.812 Obesity, class 2; G81.91 Hemiplegia, unspecified affecting right dominant side; F17.220 Nicotine dependence, chewing tobacco, uncomplicated; Z68.37 Body mass index [BMI] 37.0-37.9, adult
CPT/HCPCS: 70450; 70496; 70498; 70553; 71045; 80048; 80061; 83036; 84443; 84484; 85025; 85027; 85610; 85730; 92523; 93005; 93306; 94762; 97162; 97166; 97802; 99285; A9575; J3101; Q9957; Q9967; A4216; C8929; J2405